=== PATIENT | female | born 1990 | race Caucasian/White ===

== ENCOUNTER 2016-03-21 | Outpatient (CLI) | payer MEDICAID | END 2016-03-21 09:48 | disposition EMS.NT | DX: E16.2 Hypoglycemia, unspecified (principal) ==

== ENCOUNTER 2016-08-20 20:26 | Outpatient (CLI) | payer MEDICAID | END 2016-08-20 20:27 | disposition critical access hospital (66) | LOC: EMS 20:26 | PROVIDERS: ATTEND Surgery | DX: E11.641 Type 2 diabetes mellitus with hypoglycemia with coma (principal) | CPT/HCPCS: A0425; A0427 ==

== ENCOUNTER 2016-08-20 20:50 | Emergency (ER) | payer MEDICAID ==
[2016-08-20] MEDS ORDERED: SODIUM CHLORIDE 0.9% 1,000 ML IV ONE (21:03)
[2016-08-20 21:55] LABS: BASOPHILS # (AUTO) 0.1 10^3/uL (0.0-0.1); BASOPHILS % (AUTO) 0.9 %; EOSINOPHILS % (AUTO) 0.2 %; HCT - HEMATOCRIT 41.9 % (37.0-47.0); HGB - HEMOGLOBIN 13.9 g/dL (12.0-16.0); LYMPHOCYTES # (AUTO) 1.4 10^3/uL (1.5-3.5); LYMPHOCYTES % (AUTO) 17.1 %; MEAN CORPUSCULAR HEMOGLOBIN 28.2 pg (27.0-31.0); MEAN CORPUSCULAR HGB CONC 33.2 g/dL (32.0-36.0); MEAN CORPUSCULAR VOLUME 84.9 fL (81.0-99.0); MEAN PLATELET VOLUME 7.5 fL (7.9-10.8); MONOCYTES # (AUTO) 0.5 10^3/uL (0.0-1.0); MONOCYTES % (AUTO) 6.7 %; NEUTROPHILS % (AUTO) 75.1 %; NUCLEATED RED BLOOD CELLS AUTO 0.1 /100WBC; RED BLOOD COUNT 4.94 10^6/uL (4.20-5.40); RED CELL DISTRIBUTION WIDTH 13.1 % (12.0-15.0)
[2016-08-20 22:08] LABS: BILIRUBIN,TOTAL 0.5 mg/dL (0.2-1.0); CALCIUM 9.5 mg/dL (8.5-10.3); CREATININE 0.8 mg/dL (0.4-1.0); POTASSIUM 4.3 mmol/L (3.5-5.0); TOTAL PROTEIN 8.6 g/dL (6.7-8.2)
--- NOTE | 2016-08-20 23:20 | ED Physician Documentation ---
History of Present Illness - Stated complaint Stated Complaint: HYPOGLYCEMIA - Chief complaint Chief Complaint: Neuro - History obtained from History obtained from: Patient, Family, EMS - History of Present Illness Timing: Today Pain level max: 0 Pain level now: 0 Improved by: D50 Worsened by: Insulin - Additonal information Additional information: Patient is a 25-year-old female who was house sitting today when she became unconscious and was found on the floor. Blood sugar was 16 when EMS arrived. She was given D50 and is now normal. She does wear an insulin pump. She is a type I diabetic. Review of Systems Constitutional: denies: Fever, Chills Nose: denies: Rhinorrhea / runny nose, Congestion Throat: denies: Sore throat Cardiac: denies: Chest pain / pressure Respiratory: denies: Cough GI: denies: Abdominal Pain, Nausea, Vomiting, Diarrhea : denies: Dysuria, Frequency, Hesitancy, Now EGA Skin: denies: Rash Musculoskeletal: denies: Neck pain, Back pain Neurologic: denies: Generalized weakness, Headache Psychiatric: reports: Depressed (Has a history of depression, but is currently not depressed). denies: Suicidal, Homicidal PD PAST MEDICAL HISTORY - Past Medical History Past Medical History: Yes Cardiovascular: None Respiratory: None Neuro: None Endocrine/Autoimmune: Type 1 diabetes GI: None MUSTANGER: None : None HEENT: None Psych: Depression Musculoskeletal: None Derm: None - Past Surgical History Past Surgical History: No - Present Medications Home Medications: Ambulatory Orders Medication Instructions Recorded Confirmed Cephalexin [Keflex] 500 mg PO Q6H #28 capsule 07/28/12 HYDROcod/ACETAM 5/325 [Arion 5/325] 1 - 2 ea PO Q6H PRN #15 tablet 07/28/12 - Allergies Allergies/Adverse Reactions: Allergies Allergy/AdvReac Type Severity Reaction Status Date / Time No Known Drug Allergies Allergy Verified 07/28/12 19:05 - Social History Does the pt smoke?: No Smoking Status: Never smoker Does the pt drink ETOH?: No Does the pt have substance abuse?: No - Immunizations Immunizations are current?: Yes - POLST Patient has POLST: No PD ED PE NORMAL - Vitals Vital signs reviewed: Yes - General General: Alert and oriented X 3, No acute distress, Well developed/nourished - HEENT HEENT: PERRL, Moist mucous membranes - Neck Neck: Supple, no meningeal sign - Cardiac Cardiac: RRR, Strong equal pulses - Respiratory Respiratory: No respiratory distress, Clear bilaterally - Abdomen Abdomen: Soft, Non tender, Non distended - Derm Derm: Warm and dry, No rash - Extremities Extremities: No edema, No calf tenderness / cord - Neuro Neuro: Alert and oriented X 3 - Psych Psych: Normal mood, Normal affect Results - Vitals Vitals: Vital Signs - 24 hr 08/20/16 08/20/16 08/20/16 20:59 21:07 21:52 Temperature 36.0 C L Heart Rate 84 82 87 Respiratory 16 16 17 Rate Blood Pressure 148/110 H 119/71 132/80 H O2 Saturation 100 98 97 08/20/16 08/20/16 08/20/16 22:18 22:42 23:07 Temperature Heart Rate 90 90 86 Respiratory 16 17 16 Rate Blood Pressure 137/80 H 117/82 H 135/84 H O2 Saturation 100 99 99 08/20/16 23:25 Temperature Heart Rate 90 Respiratory 19 Rate Blood Pressure 140/79 H O2 Saturation 97 Oxygen O2 Source Room air - Labs Labs: Laboratory Tests 08/20/16 08/20/16 21:50 21:50 WBC 8.0 RBC 4.94 Hgb 13.9 Hct 41.9 MCV 84.9 MCH 28.2 MCHC 33.2 RDW 13.1 Plt Count 305 MPV 7.5 L Neut # 6.0 Lymph # 1.4 L [facility] # 0.5 Eos # 0.0 Baso # 0.1 Absolute Nucleated RBC 0.01 Nucleated RBCs 0.1 Sodium 141 Potassium 4.3 Chloride 104 Carbon Dioxide 28 Anion Gap 9.0 BUN 13 Creatinine 0.8 Estimated GFR (MDRD) 88 L Glucose 104 H Calcium 9.5 Total Bilirubin 0.5 AST 24 ALT 27 Alkaline Phosphatase 75 Total Protein 8.6 H Albumin 4.3 Globulin 4.3 H Albumin/Globulin Ratio 1.0 Lipase 18 L PD MEDICAL DECISION MAKING - ED course Complexity details: reviewed results, re-evaluated patient, considered differential, d/w patient, d/w family ED course: Patient is a 25-year-old female who presents to the emergency department after a hypoglycemic event tonight. She is insulin-dependent. Does wear an insulin pump. She ate and drank in the emergency department and was observed for several hours with no recurrent hypoglycemia. We will have her follow-up with her doctor to readjust her insulin pump as needed. Patient and family counseled regarding signs and symptoms for which I believe and urgent re- evaluation would be necessary. Patient with good understanding of and agreement to plan and is comfortable going home at this time This document was made in part using voice recognition software. While efforts are made to proofread this document, sound alike and grammatical errors may occur. Family will be with her zanight Departure - Departure Disposition: 01 Home, Self Care Clinical Impression: Hypoglycemia Condition: Good Instructions: ED Diabetes Hypoglycemia Insulin React Follow-Up: Devorah Gunn MD [Primary Care Provider] - Within 1 week Comments: Return if you worsen. Keep track of your blood sugars at home. Discharge Date/Time: 08/20/16 23:25
[2016-08-20 23:35] VITALS: BP 140/79
== END 2016-08-20 23:25 | disposition home or self-care (01) ==
LOC: ED 20:50
DX: E10.649 Type 1 diabetes mellitus with hypoglycemia without coma (principal); Z79.4 Long term (current) use of insulin
CPT/HCPCS: 36415; 80053; 83690; 85025; 99284; 99285

== ENCOUNTER 2016-12-22 16:58 | Outpatient (CLI) | payer MEDICAID | END 2016-12-22 16:59 | disposition critical access hospital (66) | LOC: EMS 16:58 | PROVIDERS: ATTEND Surgery | DX: M25.552 Pain in left hip (principal); V80.010A Animal-rider injured by fall from or being thrown from horse in noncollision accident, initial encounter; Y93.52 Activity, horseback riding; Y99.8 Other external cause status | CPT/HCPCS: A0425; A0427 ==

== ENCOUNTER 2016-12-22 17:36 | Emergency (ER) | payer MEDICAID ==
--- NOTE | 2016-12-22 19:01 | ED Physician Documentation ---
PD HPI Fall - Stated complaint Stated Complaint: BUCKED FROM HORSE - Chief complaint Chief Complaint: Trauma Ch/Bk - History obtained from History obtained from: Patient, EMS - History of Present Illness Mechanism of injury: Other (fell from horse, bucked off.) Fall distance: 5 to 10ft Timing - onset: Today Injury(ies) location: Back. No: Head, Chest, Abdomen Associated symptoms: No: LOC, AMS, Weakness, Paresthesias, Nausea / vomiting Symptoms improve with: Rest Worsens with: Movement Similar symptoms before: Has not had sx before Recently seen: Not recently seen Review of Systems Cardiac: denies: Chest pain / pressure GI: denies: Abdominal Pain Skin: denies: Abrasion (s), Laceration (s) Neurologic: denies: Generalized weakness, Focal weakness, Numbness, Altered mental status, Headache, Head injury PD PAST MEDICAL HISTORY - Past Medical History Cardiovascular: None Respiratory: None Neuro: None Endocrine/Autoimmune: Type 1 diabetes GI: None 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 : None HEENT: None Psych: Depression Musculoskeletal: None Derm: None - Past Surgical History Past Surgical History: No - Present Medications Home Medications: Ambulatory Orders Medication Instructions Recorded Confirmed Escitalopram Oxalate [Lexapro] 2 tab PO DAILY 12/22/16 12/22/16 Insulin Aspart [NovoLOG] See Protocol SQ TITR 12/22/16 12/22/16 Levonorgestrel-Ethin Estradiol 1 tab PO DAILY 12/22/16 12/22/16 [Marlissa-28 Tablet] Liothyronine [Cytomel] 1 tab PO DAILY 12/22/16 12/22/16 Methocarbamol [Robaxin] 500 mg PO Q6H PRN #25 tablet 12/22/16 Oxycodone HCl/Acetaminophen 1 each PO Q6H PRN #20 tablet 12/22/16 [Percocet 5-325 mg Tablet] buPROPion [Wellbutrin Xl] 1 tab PO DAILY 12/22/16 12/22/16 - Allergies Allergies/Adverse Reactions: Allergies Allergy/AdvReac Type Severity Reaction Status Date / Time No Known Drug Allergies Allergy Verified 12/22/16 17:46 - Social History Does the pt smoke?: No Smoking Status: Never smoker Does the pt drink ETOH?: No Does the pt have substance abuse?: No - Immunizations Immunizations are current?: Yes - POLST Patient has POLST: No PD ED PE NORMAL - Vitals Vital signs reviewed: Yes - General General: Alert and oriented X 3, No acute distress, Well developed/nourished - HEENT HEENT: Atraumatic, Pharynx benign, Dentition benign - Neck Neck: Supple, no meningeal sign, No adenopathy - Cardiac Cardiac: RRR, No murmur - Respiratory Respiratory: No respiratory distress, Clear bilaterally - Abdomen Abdomen: Soft, Non tender - Back Back: Other (upper lumbar area tender to palpation, mostly left muscles. No deformity.) - Derm Derm: Normal color, Warm and dry - Extremities Extremities: No tenderness to palpate, Normal ROM s pain - Neuro Neuro: Alert and oriented X 3, No motor deficit, No sensory deficit, Normal speech Results - Vitals Vitals: Oxygen O2 Source Room air - Labs Labs: Laboratory Tests 12/22/16 18:06 POC Whole Bld Glucose 173 H - Rads (name of study) Lumbar CT Radiology: Prelim report reviewed (transverse process fracture, nondisplaced. ) PD MEDICAL DECISION MAKING - ED course Complexity details: reviewed results (L2 transverse process fracture), considered differential, d/w patient Departure - Departure Disposition: 01 Home, Self Care Clinical Impression: Fall from horse Qualifiers: Encounter type: initial encounter Qualified Code(s): V80.010A - Animal-rider injured by fall from or being thrown from horse in noncollision accident, initial encounter Lumbar transverse process fracture Qualifiers: Encounter type: initial encounter Fracture type: closed Qualified Code(s): S32.009A - Unspecified fracture of unspecified lumbar vertebra, initial encounter for closed fracture Back contusion Qualifiers: Encounter type: initial encounter Laterality: left Qualified Code(s): S20.222A - Contusion of left back wall of thorax, initial encounter Condition: Stable Record reviewed to determine appropriate education?: Yes Instructions: ED Contusion Back, ED Fx Transverse Spinous Process Follow-Up: Devorah Gunn MD [Primary Care Provider] - Prescriptions: Methocarbamol [Robaxin] 500 mg PO Q6H PRN #25 tablet PRN Reason: Spasms Oxycodone HCl/Acetaminophen [Percocet 5-325 mg Tablet] 1 each PO Q6H PRN #20 tablet PRN Reason: Pain Comments: .Ibuprofen or naproxen twice daily for the next 7-10 days use heat for the muscles and gentle stretching to reduce spasming. Light activity is okay and good for the back muscles. They will be sore however with use and avoid heavy lifting twisting or bending for 1-2 weeks initially. Use methocarbamol if needed for muscle spasms and oxycodone or Tylenol if needed for pain. The pain should decrease quite a bit over the first several days as the swelling and contusion improve. The fracture part will hurt mostly for the first week and 1/ 2-2 weeks. Will take about a month for her to fully heal up. Progress activity and use of the back as able during that time. Discharge Date/Time: 12/22/16 21:15
[2016-12-22] MEDS: KETOROLAC 60 MG/2 ML VIAL IVP STA ×2 (19:57→20:26)
--- NOTE | 2016-12-22 19:57 | CT Preliminary Report ---
Exam: CT PELVIS W/O IMPRESSION: 1. No acute fracture. 2. 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 3. Mild pubic symphysis arthritic changes. [facility] SITE ID: [id number]
--- NOTE | 2016-12-22 19:58 | CT Preliminary Report ---
Exam: CT LUMBAR SPINE W/O IMPRESSION: 1. Left L2 transverse process fracture. 2. Otherwise unremarkable. [facility] SITE ID: [id number]
[2016-12-22] MEDS ORDERED: KETOROLAC 30 MG/ML VIAL ONE ×2 (20:00→20:18)
[2016-12-22] MEDS ORDERED: SODIUM CHLORIDE FLUSH 0.9% 10 ML SYRINGE IVP ONE ×2 (20:00→20:19)
--- NOTE | 2016-12-22 20:00 | CT Report ---
EXAM: CT BONY PELVIS WITHOUT CONTRAST EXAM DATE: 12/22/2016 07:43 PM. CLINICAL HISTORY: Left sided pelvic pain after fall from horse. COMPARISON: None. TECHNIQUE: Thin-section axial images were acquired of the pelvis without contrast. Post-processing: C oronal and sagittal reformats. Other: None. In accordance with CT protocol optimization, one or more of the following dose reduction techniques w ere utilized for this exam: automated exposure control, adjustment of mA and/or KV based on patient s ize, or use of iterative reconstructive technique. FINDINGS: Bones: No fracture or bone lesion. Sacroiliac Joints: No widening, erosions, or sclerosis. Symphysis Pubis: Mild arthritic changes. Hips: There is diminished bilateral femoral headneck offset. No dislocation or joint effusions. No s ignificant joint space narrowing. Musculature: Normal. No fatty atrophy. Pelvic Cavity: The visualized bowel, bladder, and reproductive organs are unremarkable on this noncon trast exam. Other: No lymphadenopathy. No free air or free fluid. The other visualized soft tissues are unremarka ble. IMPRESSION: 1. No acute fracture. 2. 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 3. Mild pubic symphysis arthritic changes. [facility] Referring Provider Line: [phone] SITE ID: [id number]
--- NOTE | 2016-12-22 20:01 | CT Report ---
EXAM: CT LUMBAR SPINE WITHOUT CONTRAST EXAM DATE: 12/22/2016 07:43 PM. CLINICAL HISTORY: Fall from horse. COMPARISONS: None. TECHNIQUE: Thin-section axial images were acquired of the lumbar spine from T12 to S1 without contras t. Post-processing: Coronal and sagittal reformats. Other: None. In accordance with CT protocol optimization, one or more of the following dose reduction techniques w ere utilized for this exam: automated exposure control, adjustment of mA and/or KV based on patient s ize, or use of iterative reconstructive technique. FINDINGS: Alignment: Normal. No scoliosis or spondylolisthesis. Bones: Five [id number] lumbar vertebral bodies are present. There is a fracture involving the ti p of the left L2 transverse process. No other fracture seen. Disk Levels/Facets: T12-L1: Unremarkable. L1-L2: Unremarkable. L2-L3: Unremarkable. L3-L4: Unremarkable. L4-L5: Unremarkable. L5-S1: Unremarkable. Musculature: Normal. No fatty atrophy. Other: The visualized pelvic cavity is unremarkable. IMPRESSION: 1. Left L2 transverse process fracture. 2. Otherwise unremarkable. [facility] Referring Provider Line: [phone] SITE ID: [id number]
[2016-12-22] MEDS ORDERED: KETOROLAC 30 MG/ML VIAL IM STA (20:26)
[2016-12-22] MEDS ORDERED: oxyCODONE/ACET 5/325 Prepack 4 PO STA (20:43)
[2016-12-22] MEDS ORDERED: oxyCOD/ACETAMIN 5 MG/325 MG TABLET PO STA (20:43)
[2016-12-22] MEDS ORDERED: diazePAM 5 MG TABLET PO STA (20:43)
[2016-12-22] MEDS ORDERED: oxyCOD/ACETAMIN 5 MG/325 MG TABLET PO ONE (20:53)
[2016-12-22] MEDS ORDERED: diazePAM 5 MG TABLET PO ONE (20:54)
[2016-12-22] MEDS ORDERED: oxyCODONE/ACET 5/325 Prepack 4 PO ONE (20:54)
[2016-12-22 21:28] VITALS: BP 133/74
== END 2016-12-22 21:15 | disposition home or self-care (01) ==
LOC: EDUNIT# → ED 17:36
DX: S32.029A Unspecified fracture of second lumbar vertebra, initial encounter for closed fracture (principal); S20.222A Contusion of left back wall of thorax, initial encounter; V80.010A Animal-rider injured by fall from or being thrown from horse in noncollision accident, initial encounter; E10.9 Type 1 diabetes mellitus without complications; Z79.4 Long term (current) use of insulin
CPT/HCPCS: 72131; 72192; 96372; 99284; A9270

== ENCOUNTER 2018-12-01 13:53 | Outpatient (CLI) | payer MEDICAID | END 2018-12-01 13:54 | disposition critical access hospital (66) | LOC: EMS 13:53 | PROVIDERS: ATTEND Surgery | DX: R11.2 Nausea with vomiting, unspecified (principal); R73.09 Other abnormal glucose | CPT/HCPCS: A0425; A0429; A0999 ==

== ENCOUNTER 2018-12-01 14:34 | Inpatient (IN) | payer MEDICAID ==
[2018-12-01] MEDS ORDERED: ONDANSETRON 4 MG/2 ML VIAL IVP STA ×2 (15:15→17:40)
[2018-12-01] MEDS ORDERED: SODIUM CHLORIDE 0.9% 1,000 ML IV ONE ×2 (15:15→16:21)
--- NOTE | 2018-12-01 15:32 | ED Physician Documentation ---
PD HPI NVD - Stated complaint Stated Complaint: N/V - Chief complaint Chief Complaint: Abd Pain - History obtained from History obtained from: Patient - History of Present Illness Timing - onset: Today Timing - duration: Hours (12) Timing - details: Abrupt onset Associated symptoms: Abdominal pain, Dizzy, Near syncope / syncope. No: Fever, Hematemesis, Dysuria, Hematuria Contributing factors: No: Sick contact, Bad food (This is a 28-year-old presents with complaints that she is a diabetic and she thinks her insulin pump may not be working because it has been notifying her that the "flow it "is blocked.) Recently seen: Not recently seen - Additonal information Additional information: This is a 28-year-old diabetic who presents with complaints that she thinks her insulin pump may not be working she took it off the automatic mode last week because she was having what hypoglycemia and now she is getting notifications today that the "flow" is blocked. She began vomiting about 4 AM and has not been able to keep anything down. Her mom checked her blood sugar at home but she does not know what it was. She is complaining of some mild abdominal pain but mostly back pain. Denies any dysuria and denies . She was not ill before this started. She has not eaten anything in the past 24 hours and does not remember eating anything that she thinks would have made her sick. She denies any recent illness, no fever, no sore throat or coughing. She has felt dizzy significantly. Review of Systems Constitutional: denies: Fever Eyes: denies: Loss of vision Ears: denies: Ear pain Nose: denies: Congestion Throat: denies: Sore throat Cardiac: denies: Palpitations Respiratory: denies: Cough GI: reports: Abdominal Pain, Nausea, Vomiting : denies: Dysuria, Now EGA Skin: denies: Rash Musculoskeletal: reports: Back pain Neurologic: denies: Syncope Endocrine: reports: Other (Patient is diabetic.). denies: Polydypsia, Polyuria PD PAST MEDICAL HISTORY - Past Medical History Cardiovascular: None Respiratory: None Endocrine/Autoimmune: Type 1 diabetes GI: None HEAD BONE GRINDER: None : None HEENT: None Psych: Depression Musculoskeletal: None Derm: None - Past Surgical History Past Surgical History: No - Present Medications Home Medications: Ambulatory Orders Medication Instructions Recorded Confirmed Escitalopram Oxalate [Lexapro] 2 tab PO DAILY 12/22/16 12/22/16 Insulin Aspart [NovoLOG] See Protocol SQ TITR 12/22/16 12/22/16 Levonorgestrel-Ethin Estradiol 1 tab PO DAILY 12/22/16 12/22/16 [Marlissa-28 Tablet] Methocarbamol [Robaxin] 500 mg PO Q6H PRN #25 tablet 12/22/16 Oxycodone HCl/Acetaminophen 1 each PO Q6H PRN #20 tablet 12/22/16 [Percocet 5-325 mg Tablet] RX: Liothyronine [Cytomel] 1 tab PO DAILY 12/22/16 12/22/16 buPROPion [Wellbutrin Xl] 1 tab PO DAILY 12/22/16 12/22/16 - Allergies Allergies/Adverse Reactions: Allergies Allergy/AdvReac Type Severity Reaction Status Date / Time No Known Drug Allergies Allergy Verified 12/01/18 14:47 - Social History Does the pt smoke?: No Smoking Status: Never smoker Does the pt drink ETOH?: No Does the pt have substance abuse?: No - Immunizations Immunizations are current?: Yes - POLST Patient has POLST: No PD ED PE NORMAL - Vitals Vital signs reviewed: Yes - General General: Well developed/nourished, Other (She is somnolent, slow to answer questions.) - HEENT HEENT: Other (Mucous membrane's are very dry. She smells of ketones.) - Neck Neck: No adenopathy, Thyroid normal - Cardiac Cardiac: Other (Patient is tachycardic. No murmur.) - Respiratory Respiratory: No respiratory distress, Clear bilaterally - Abdomen Abdomen: Normal bowel sounds, Soft, Non tender, Non distended - Back Back: No CVA TTP - Derm Derm: Normal color, Warm and dry - Extremities Extremities: No edema - Neuro Neuro: Alert and oriented X 3, No motor deficit, No sensory deficit, Normal speech Results - Vitals Vitals: Vital Signs - 24 hr 12/01/18 12/01/18 14:43 17:34 Temperature 97.9 C H Heart Rate 109 H 112 H Respiratory 18 20 Rate Blood Pressure 112/57 L 116/62 O2 Saturation 100 100 Oxygen O2 Source Room air - Labs Labs: Laboratory Tests 12/01/18 12/01/18 12/01/18 15:06 15:06 16:50 WBC 10.9 H RBC 4.85 Hgb 13.2 Hct 43.2 MCV 89.1 MCH 27.2 MCHC 30.6 L RDW 13.2 Plt Count 354 MPV 9.8 Neut # (Auto) 9.3 H Lymph # (Auto) 0.8 L [facility] # (Auto) 0.6 Eos # (Auto) 0.0 Baso # (Auto) 0.0 Absolute Nucleated RBC 0.00 Nucleated RBC % 0.0 VBG pH VBG pCO2 VBG pO2 VBG HCO3 VBG Total CO2 VBG O2 Saturation VBG Base Excess Sodium Potassium Chloride Carbon Dioxide Anion Gap BUN Creatinine Estimated GFR (MDRD) Glucose Glycated Hemoglobin Estim Average Glucose Calcium Total Bilirubin AST ALT Alkaline Phosphatase Total Protein Albumin Globulin Albumin/Globulin Ratio Lipase Urine Color YELLOW Urine Clarity CLEAR Urine pH 6.0 Ur Specific [place] 1.025 1.025 Urine Protein NEGATIVE Urine Glucose (UA) 500 H Urine Ketones >=80 H Urine Occult Blood TRACE-INTA Urine Nitrite NEGATIVE Urine Bilirubin NEGATIVE Urine Urobilinogen 0.2 (NORMAL) Ur Leukocyte Esterase NEGATIVE Ur Microscopic Review NOT INDICATED Urine Culture Comments NOT INDICATED Urine HCG, Qual NEGATIVE Serum Ketones 12/01/18 12/01/18 12/01/18 16:50 16:50 16:50 WBC RBC Hgb Hct MCV MCH MCHC RDW Plt Count MPV Neut # (Auto) Lymph # (Auto) [place] # (Auto) Eos # (Auto) Baso # (Auto) Absolute Nucleated RBC Nucleated RBC % VBG pH 7.254 L VBG pCO2 31.3 L VBG pO2 55.9 H VBG HCO3 13.5 L VBG Total CO2 14.5 L VBG O2 Saturation 86.5 H VBG Base Excess -12.3 L Sodium 137 Potassium 6.0 H* Chloride 104 Carbon Dioxide 15 L Anion Gap 18.0 H BUN 18 Creatinine 1.1 H Estimated GFR (MDRD) 60 L Glucose 417 H Glycated Hemoglobin 7.9 H Estim Average Glucose 180 H Calcium 9.5 Total Bilirubin 1.4 H AST 17 ALT 16 Alkaline Phosphatase 94 Total Protein 8.1 Albumin 4.2 Globulin 3.9 Albumin/Globulin Ratio 1.1 Lipase 16 L Urine Color Urine Clarity Urine pH Ur Specific [place] Urine Protein Urine Glucose (UA) Urine Ketones Urine Occult Blood Urine Nitrite Urine Bilirubin Urine Urobilinogen Ur Leukocyte Esterase Ur Microscopic Review Urine Culture Comments Urine HCG, Qual Serum Ketones MODERATE H PD MEDICAL DECISION MAKING - ED course Complexity details: reviewed results, re-evaluated patient, d/w patient, d/w family ED course: An IV was established and the patient was given 2 L of saline. There was a delay in getting her potassium and I was cautious about starting IV insulin until that was returned. It was 6.0. Her EKG did not show any concerning changes. She still complaining of feeling nauseous despite Zofran so she is given an additional 4 mg and also given Dilaudid for headache. Her venous pH was 7.25, positive ketones, blood glucose 417. Case was discussed with the hospitalist and they have agreed to accept the patient for admission to the ICU. - Critical Care Time(min): 30 Time Includes: Direct patient care, Review records, Reassess patient, Document care, See progress note Data interpretation: Labs Departure - Departure Disposition: 66 [facility] DC/Xfer Clinical Impression: DKA, type 1 Qualifiers: Diabetes mellitus complication detail: without coma Qualified Code(s): E10.10 - Type 1 diabetes mellitus with ketoacidosis without coma Discharge Date/Time: 12/01/18 19:00
[2018-12-01 15:42] LABS: BILIRUBIN,URINE NEGATIVE (NEGATIVE); GLUCOSE, URINE (UA) 500 mg/dL (NEGATIVE); KETONES,URINE (UA) >=80 mg/dL (NEGATIVE); LEUKOCYTE ESTERASE, URINE NEGATIVE (NEGATIVE); NITRITE,URINE NEGATIVE (NEGATIVE); OCCULT BLOOD,URINE TRACE-INTA (NEGATIVE); PROTEIN,URINE NEGATIVE (NEGATIVE); UROBILINOGEN,URINE 0.2 (NORMAL) E.U./dL (NORMAL)
[2018-12-01 15:46] LABS: CLARITY,URINE CLEAR (CLEAR); HCG UR QUAL NEGATIVE
[2018-12-01 17:05] LABS: VBG BASE EXCESS -12.3 mmol/L (-2 - +2); VBG PCO2 31.3 mmHg (41-51); VBG PH 7.254 (7.31-7.41); VBG PO2 55.9 mmHg (25-47); VBG TOTAL CO2 14.5 mmol/L (24-29)
[2018-12-01 17:07] LABS: BASOPHILS % (AUTO) 0.2 %; HGB - HEMOGLOBIN 13.2 g/dL (12.0-16.0); LYMPHOCYTES # (AUTO) 0.8 10^3/uL (1.5-3.5); LYMPHOCYTES % (AUTO) 7.6 %; MEAN CORPUSCULAR HEMOGLOBIN 27.2 pg (27.0-31.0); MEAN CORPUSCULAR HGB CONC 30.6 g/dL (32.0-36.0); MEAN CORPUSCULAR VOLUME 89.1 fL (81.0-99.0); MEAN PLATELET VOLUME 9.8 fL (7.9-10.8); MONOCYTES # (AUTO) 0.6 10^3/uL (0.0-1.0); MONOCYTES % (AUTO) 5.9 %; NEUTROPHILS # (AUTO) 9.3 10^3/uL (1.5-6.6); NEUTROPHILS % (AUTO) 85.8 %; PLT - PLATELET COUNT 354 10^3/uL (130-450); RED BLOOD COUNT 4.85 10^6/uL (4.20-5.40); RED CELL DISTRIBUTION WIDTH 13.2 % (12.0-15.0); WHITE BLOOD COUNT 10.9 x10^3/uL (4.8-10.8)
[2018-12-01 17:14] LABS: KETONES, SERUM (ACETEST) MODERATE (NEGATIVE)
[2018-12-01 17:24] LABS: ALBUMIN 4.2 g/dL (3.2-5.5); ALBUMIN/GLOBULIN RATIO 1.1 (1.0-2.2); ALKALINE PHOSPHATASE 94 IU/L (42-121); ALT ALANINE AMINOTRANSFERASE 16 IU/L (10-60); AST ASPARTATE AMINOTRANSFERASE 17 IU/L (10-42); BILIRUBIN,TOTAL 1.4 mg/dL (0.2-1.0); BUN - BLOOD UREA NITROGEN 18 mg/dL (6-20); CALCIUM 9.5 mg/dL (8.5-10.3); CARBON DIOXIDE - CO2 15 mmol/L (21-32); CHLORIDE 104 mmol/L (101-111); CREATININE 1.1 mg/dL (0.4-1.0); GFR - MDRD 60 (>89); GLUCOSE 417 mg/dL (70-100); LIPASE 16 U/L (22-51); SODIUM 137 mmol/L (135-145); TOTAL PROTEIN 8.1 g/dL (6.7-8.2)
[2018-12-01] MEDS ORDERED: ONDANSETRON ODT 4 MG TABLET TL PRN (17:39)
[2018-12-01] MEDS ORDERED: LACTATED RINGERS 1,000 ML IV STA (17:39)
[2018-12-01] MEDS ORDERED: PROCHLORPERAZINE 10 MG/2 ML VIAL IVP PRN (17:39)
[2018-12-01] MEDS ORDERED: SODIUM CHLORIDE FLUSH 0.9% 10 ML SYRINGE IVP PRN (17:39)
[2018-12-01] MEDS ORDERED: ONDANSETRON 4 MG/2 ML VIAL IVP PRN (17:39)
[2018-12-01] MEDS ORDERED: ACETAMINOPHEN 325 MG TABLET PO PRN (17:39)
[2018-12-01] MEDS ORDERED: HYDROmorphone 1 MG/ML CARPUJECT IVP STA (17:40)
--- NOTE | 2018-12-01 17:48 | HISTORY & PHYSICAL EXAMINATION ---
Chief Complaint - Chief Complaint Chief Complaint: nausea/vomitting, abd pain in Type 1 diabetic <Delfina Kellogg - Last Filed: 12/01/18 18:47> History of Present Illness - Admitted From Admitted From:: Home/ER - History Obtained From Records Reviewed: [facility] History obtained from: Dr. Seymour, Patient Exam Limitations: none <Delfina Kellogg - Last Filed: 12/01/18 18:47> - History of Present Illness HPI Comment/Other: She is a 28-year-old female who has had type 1 diabetes mellitus since childhood. She has had numerous encounters with healthcare system due to hypoglycemia. But she is never had to be brought into the hospital because EMS would usually be able to treat her at the scene and she would recover from hypoglycemia. She took her insulin pump off automatic mode last week because she was having too much hypoglycemia. Today she was getting notifications that the "flow" was blocked. This morning she began vomiting at 4 AM and has not been able to keep anything down. She has mild mid abdominal pain. Low back pain. She denies fever, chills. She denies any URI symptoms. She denies chest pain, cough, shortness of breath. She denies being . She denies urgency, frequency, dysuria. No one else in the family is sick. In the emergency room she was seen by Dr. Seymour. Temperature is 97.9, heart rate is 109, blood pressure is 112/57, respiratory rate 18 and 100% on room air. Her potassium was 6. Creatinine is acutely elevated to 1.1. Random glucose was 417. Total bili 1.4. Lipase 16. Venous blood gas shows a pH of 7.254. P CO2 31.3. PO2 55.9. Bicarb 13.5. Base excess -12.3. White cell count is elevated at 10.9 and the rest of her CBC is normal. Urinalysis has glucosuria and ketonuria but no infection. Urine test is negative. Ketones are positive. She is now going to be placed in the ICU. She has 2 large IVs, one in each arm. She will be started on insulin drip and hydrated with nausea control. (Delfina Kellogg Mahesh) History - Past Medical History Cardiovascular: reports: None Respiratory: reports: None Endocrine/Autoimmune: reports: Type 1 diabetes GI: reports: None REGISTERED NURSE RENAL: reports: None : reports: None HEENT: reports: None Psych: reports: Depression Musculoskeletal: reports: None Derm: reports: None MRSA Hx?: No - POLST Patient has POLST: No <Delfina Kellogg - Last Filed: 12/01/18 18:47> - Family & Social History Family History Comment/Other: Her paternal grandfather had type 2 diabetes. Both of her parents have hypertension. Living arrangement: At home Living Situation: With family Social History Notes: She lives on [address] with her mother. She is not currently employed. She does not smoke. Occasionalyl drinks alcohol. Denies drug use. - Substance History Use: Uses substance without health or social issues: NONE <TimbrunoLuis - Last Filed: 12/01/18 20:26> Meds/Allgy <Delfina Kellogg - Last Filed: 12/01/18 18:47> <Luis Bishop - Last Filed: 12/01/18 20:26> - Home Medications Home Medications: Ambulatory Orders Medication Instructions Recorded Confirmed Escitalopram Oxalate [Lexapro] 2 tab PO DAILY 12/22/16 12/22/16 Insulin Aspart [NovoLOG] See Protocol SQ TITR 12/22/16 12/22/16 Levonorgestrel-Ethin Estradiol 1 tab PO DAILY 12/22/16 12/22/16 [Marlissa-28 Tablet] Liothyronine [Cytomel] 1 tab PO DAILY 12/22/16 12/22/16 Methocarbamol [Robaxin] 500 mg PO Q6H PRN #25 tablet 12/22/16 Oxycodone HCl/Acetaminophen 1 each PO Q6H PRN #20 tablet 12/22/16 [Percocet 5-325 mg Tablet] buPROPion [Wellbutrin Xl] 1 tab PO DAILY 12/22/16 12/22/16 - Allergies Allergies/Adverse Reactions: Allergies Allergy/AdvReac Type Severity Reaction Status Date / Time No Known Drug Allergies Allergy Verified 12/01/18 14:47 Review of Systems - Constitutional Constitutional: reports: Fatigue, Chills, Weakness, Poor appetite. denies: Fever - Cardiovascular Cariovascular: denies: Chest pain, Exertional dyspnea, Decr. exercise tolerance - Respiratory Respiratory: reports: SOB at rest. denies: Cough, SOB with exertion - Gastrointestinal Gastrointestinal: reports: Abdominal pain, Nausea, Vomiting. denies: Constipation, Diarrhea - Genitourinary Genitourinary: reports: Frequency. denies: Dysuria, Urgency - Integumentary Integumentary: denies: Rash - Neurological Neurological: reports: General weakness. denies: Focal weakness - Endocrine Endocrine: reports: Polyuria, Polydypsia - All Other Systems All Other Systems: reports: Reviewed and negative <TimbrunoLuis - Last Filed: 12/01/18 20:26> <TimLuis riley - Last Filed: 12/01/18 20:26> Prior Level of Functionality: Independent with ADL's. (Luis Bishop) Exam - Vital Signs Reviewed Vital Signs: Yes - Physical Exam General Appearance: positive: Alert, Mild distress Eyes Bilateral: positive: Normal inspection, Conjunctivae nml ENT: positive: Dry mucous membranes Neck: positive: Nml inspection Respiratory: positive: No respiratory distress. negative: Wheezes, Rales, Rhonchi Cardiovascular: positive: No murmur, Tachycardia. negative: Bradycardia, Systolic murmur, Diastolic murmur Abdomen: positive: Non-tender, Nml bowel sounds, No distention. negative: Tenderness, Guarding, Rebound Skin: positive: Color nml, No rash, Warm Extremities: positive: Non-tender, Full ROM, No pedal edema Neurologic/Psychiatric: positive: Oriented x3, Other (No focal motor deficits). negative: Disoriented to person, Disoriented to place, Disoriented to time <TimbrunoLuis - Last Filed: 12/01/18 20:26> - Vital Signs Vital Signs: Vital Signs x48h Temp Pulse Pulse Resp BP BP Pulse Ox 12/01/18 20:00 118 H 21 113/50 L 99 12/01/18 19:05 36.6 C 116 H 16 129/58 L 99 12/01/18 18:30 126 H 18 116/53 L 100 12/01/18 17:34 112 H 20 116/62 100 12/01/18 14:43 97.9 C H 109 H 18 112/57 L 100 Conclusion/Plan - Problem List (1) DKA, type 1 Conclusion/Plan: Due to pump malfunction. Most likely not getting her insulin. She is not felt to have any infection, cardiac problem, noncompliance, issue. She has hyperkalemia, anion gap acidosis Plan: Inpatient admission ICU status for DKA protocol including insulin drip Aggressive IV fluid resuscitation Management of electrolyte dysfunction that develops And follow anion gap acidosis frequently to assess success of treatment Qualifiers: Diabetes mellitus complication detail: without coma Qualified Code(s): E10.10 - Type 1 diabetes mellitus with ketoacidosis without coma (2) Nausea & vomiting Conclusion/Plan: Due to DKA. She has a benign abdominal exam. Normal bowel sounds. : Zofran, Phenergan, IV fluids Qualifiers: Vomiting type: unspecified Vomiting Intractability: intractable Qualified Code(s): R11.2 - Nausea with vomiting, unspecified (3) Dehydration Conclusion/Plan: With acute kidney injury. Creatinine is newly elevated to 1.1 for her. Oral mucosa is dry. Due to nausea and vomiting. Plan: Fluid resuscitation with normal saline followed by D5 (4) Hyperkalemia Conclusion/Plan: Recheck in a few hours to see if it has gone down. I would anticipate it would since she is can be getting insulin. - Lab Results Ramirez Peacock: 12/01/18 16:50 12/01/18 18:05 - EKG Results EKG Interpreted Independently: No <Delfina Kellogg - Last Filed: 12/01/18 18:47> - Lab Results Lab results reviewed: Yes Ramirez Peacock: 12/01/18 16:50 12/01/18 18:05 - Diagnostic Imaging Results Diagnostic Imaging Results: positive: Final report reviewed - EKG Results EKG Interpreted Independently: Yes <Luis Bishop - Last Filed: 12/01/18 20:26> Core Measures - Anticipated LOS I expect patient to be DC'd or transferred within 96 hours.: Yes - DVT/VTE - Prophylaxis VTE/DVT Device ordered at admit?: Yes <Delfina Kellogg - Last Filed: 12/01/18 18:47> - DVT/VTE - Prophylaxis VTE/DVT Device ordered at admit?: Yes VTE/DVT Prophylaxis med ordered at admit?: Yes <Luis Bishop - Last Filed: 12/01/18 20:26> - Issues Hospital Issues and Management Plan: DKA requiring IV hydration and IV insulin with frequent blood draws. (Luis Bishop)
[2018-12-01] MEDS ORDERED: SODIUM CHLORIDE 0.9% 1,000 ML IV SCH (18:00)
[2018-12-01] MEDS ORDERED: DEXTROSE 5%-0.9% NACL 1,000 ML IV SCH (18:00)
[2018-12-01] MEDS ORDERED: INSULIN REGULAR HUMAN 100 UNIT in SODIUM CHLORIDE 0.9% 100ML 99 ML IV SCH (18:00)
[2018-12-01] MEDS: INSULIN REGULAR HUMAN 100 UNIT in SODIUM CHLORIDE 0.9% 100ML 99 ML IV STA (18:01)
[2018-12-01 18:19] LABS: HB2 TOTAL 13.9 g/dL; HEMOGLOBIN A1C 0.87 g/dL; HEMOGLOBIN A1C % 7.9 % (4.6-6.2)
[2018-12-01 18:29] LABS: CREATININE 1.1 mg/dL (0.4-1.0)
[2018-12-01 20:47] LABS: CALCIUM 8.8 mg/dL (8.5-10.3); CREATININE 1.1 mg/dL (0.4-1.0)
[2018-12-01] MEDS: POTASSIUM CHLOR 10 MEQ/100 ML 10 MEQ/100 ML BAG IV SCH ×2 (21:13→22:54)
--- NOTE | 2018-12-01 21:41 | CONSULTATION NOTE ---
Consultation Report: Call to [phone] for IV placement. diagnosis, DKA, requiring multiple lines. Pt drowsy but oriented. IV start explained. 20ga IV placed at R FA with US attempt x1. J loop and cap placed, aspirates and flushes easily. Secured. Pt tolerated procedure without complaint.
[2018-12-01] MEDS ORDERED: D5.45NS W/20 MEQ KCL 1,000 ML IV SCH (23:45)
[2018-12-02] MEDS: INSULIN REGULAR HUMAN 100 UNIT in SODIUM CHLORIDE 0.9% 100ML 99 ML IV STA (02:57)
[2018-12-02 05:09] LABS: VBG BASE EXCESS -7.8 mmol/L (-2 - +2); VBG PH 7.34 (7.31-7.41); VBG PO2 177.6 mmHg (25-47); VBG TOTAL CO2 17.9 mmol/L (24-29)
[2018-12-02 05:18] LABS: BASOPHILS % (AUTO) 0.4 %; EOSINOPHILS % (AUTO) 0.1 %; HGB - HEMOGLOBIN 11.4 g/dL (12.0-16.0); MEAN CORPUSCULAR HEMOGLOBIN 28.6 pg (27.0-31.0); MEAN CORPUSCULAR HGB CONC 32.8 g/dL (32.0-36.0); MEAN CORPUSCULAR VOLUME 87.4 fL (81.0-99.0); MEAN PLATELET VOLUME 9.5 fL (7.9-10.8); MONOCYTES % (AUTO) 10.9 %; NEUTROPHILS % (AUTO) 72.9 %; PLT - PLATELET COUNT 368 10^3/uL (130-450); RED BLOOD COUNT 3.98 10^6/uL (4.20-5.40); RED CELL DISTRIBUTION WIDTH 13.4 % (12.0-15.0); WHITE BLOOD COUNT 22.8 x10^3/uL (4.8-10.8)
[2018-12-02 05:19] LABS: BUN - BLOOD UREA NITROGEN 18 mg/dL (6-20); CALCIUM 8.3 mg/dL (8.5-10.3); CARBON DIOXIDE - CO2 18 mmol/L (21-32); CHLORIDE 114 mmol/L (101-111); CREATININE 0.9 mg/dL (0.4-1.0); GFR - MDRD 75 (>89); GLUCOSE 128 mg/dL (70-100); SODIUM 140 mmol/L (135-145)
[2018-12-02 05:24] LABS: ABNORMAL LYMPHS % (MANUAL) 0 %; BAND NEUTROPHILS % (MANUAL) 0 %
[2018-12-02 05:25] LABS: KETONES, SERUM (ACETEST) NEGATIVE (NEGATIVE)
[2018-12-02] MEDS: SODIUM CHLORIDE FLUSH 0.9% 10 ML SYRINGE IVP SCH ×3 (05:34→17:37)
[2018-12-02 05:46] LABS: ALBUMIN 3.2 g/dL (3.2-5.5); MAGNESIUM 1.8 mg/dL (1.7-2.8); PHOSPHORUS 2.3 mg/dL (2.5-4.6)
[2018-12-02] MEDS ORDERED: POTASSIUM PHOSPHATE 15 MMOL in SODIUM CHLORIDE 0.9% 250 ML IV ONE (05:50)
[2018-12-02 05:53] LABS: LYMPHOCYTES # (MANUAL) 3.4 10^3/uL (1.5-3.5); LYMPHOCYTES % (MANUAL) 15 %; MONOCYTES # (MANUAL) 2.3 10^3/uL (0.0-1.0)
[2018-12-02 05:54] LABS: PLATELET ESTIMATE, MANUAL NORMAL (130-450,000) (NORMAL); PLATELET MORPHOLOGY NORMAL APPEARANCE (NORMAL); RBC MORPHOLOGY (MULTIPLE) NORMAL APPEARANCE (NORMAL)
[2018-12-02 05:55] LABS: DIFFERENTIAL COMMENT MANUAL DIFFERENTIAL
[2018-12-02] MEDS ORDERED: BENZOCAINE/MENTHOL LOZENGE MM PRN (08:40)
[2018-12-02] MEDS ORDERED: SODIUM CHLORIDE 0.9% 500 ML ONE (10:43)
[2018-12-02] MEDS: INSULIN ASPART 300 UNIT/3 ML PEN SUBQ SCH ×2 (12:32→17:03)
--- NOTE | 2018-12-02 13:53 | PROVIDER PROGRESS NOTE ---
Assessment/Plan - Problem List (1) IDDM (insulin dependent diabetes mellitus) Assessment/Plan: A1c is 7.9, indicating fair-poor control. She has had EMT calls for low glu values of 40, but did not come for ER management with those. She is still on an Insulin drip plus Nutritional doses of Insulin, in order to calculate what Insulin requirements she has, with eating. She will need long-acting and short-acting sq Insulin management, while her Insulin pump, which is not working issue is resolved. Diabetic Teaching Niurse consult from [facility] requested, to assist. (2) Malfunction of device Assessment/Plan: The etiology of this episode of DKA was felt to be Insulin pump malfunction, not infection or other stressor. (3) Dehydration Assessment/Plan: Improved. Continue gentle hydration (4) Nausea & vomiting Qualifiers: Vomiting type: unspecified Vomiting Intractability: intractable Qualified Code(s): R11.2 - Nausea with vomiting, unspecified Assessment/Plan: Resolved (5) DKA, type 1 Qualifiers: Diabetes mellitus complication detail: without coma Qualified Code(s): E10.10 - Type 1 diabetes mellitus with ketoacidosis without coma Assessment/Plan: Resolved - Current Meds Current Meds: Current Medications Generic Name Dose Route Start Last Admin Trade Name Freq PRN Reason Stop Dose Admin Acetaminophen 650 mg 12/01/18 17:39 12/02/18 08:48 Tylenol PO 650 mg Q4HR PRN Administration Pain 1 to 4 Insulin Aspart 5 unit 12/02/18 12:00 12/02/18 12:32 Novolog SUBQ 5 unit TIDWM IRAIDA Administration Protocol Sodium Chloride 10 ml 12/02/18 01:00 12/02/18 08:56 Normal Saline Flush 0.9% IVP 10 ml 0100,0900,1700 IRAIDA Administration Throat Lozenges 1 lozenge 12/02/18 08:40 12/02/18 08:48 Cepacol MM 1 lozenge Q2HR PRN Administration Throat pain - Lab Result Fish Bone Diagrams: 12/02/18 04:51 12/02/18 04:51 - Additional Planning My Orders: My Active Orders 12/02/18 Diabetes Outpatient Education [facility] [[facility]] Routine 12/02/18 08:40 Benzocaine/Menthol [Cepacol] 1 lozenge MM Q2HR PRN 12/02/18 09:55 Blood Glucose Checks - Eating [RC] 0800,1200,1700,2100 12/02/18 12:00 Insulin Aspart [NovoLOG] 5 unit SUBQ TIDWM Subjective - Subjective Patient Reports: Feeling Better Objective Vital Signs: Vital Signs - 24 hr 12/01/18 12/01/18 12/01/18 14:43 17:34 18:30 Temperature 97.9 C H Heart Rate 109 H 112 H 126 H Heart Rate [ Monitoring electrodes] Respiratory 18 20 18 Rate Blood Pressure 112/57 L 116/62 116/53 L Blood Pressure [Right Brachial artery] O2 Saturation 100 100 100 12/01/18 12/01/18 12/01/18 19:05 20:00 21:00 Temperature 36.6 C Heart Rate Heart Rate [ 116 H 118 H 120 H Monitoring electrodes] Respiratory 16 21 18 Rate Blood Pressure Blood Pressure 129/58 L 113/50 L 118/50 L [Right Brachial artery] O2 Saturation 99 99 100 12/01/18 12/01/18 12/02/18 22:00 23:00 00:00 Temperature 36.6 C Heart Rate Heart Rate [ 116 H 121 H 121 H Monitoring electrodes] Respiratory 20 19 19 Rate Blood Pressure Blood Pressure 116/60 110/60 117/54 L [Right Brachial artery] O2 Saturation 99 97 98 12/02/18 12/02/18 12/02/18 01:00 02:00 03:00 Temperature 37.1 C Heart Rate Heart Rate [ 115 H 114 H 112 H Monitoring electrodes] Respiratory 18 20 18 Rate Blood Pressure Blood Pressure 114/57 L 104/49 L 109/52 L [Right Brachial artery] O2 Saturation 97 99 97 12/02/18 12/02/18 12/02/18 04:00 05:00 06:00 Temperature 37.1 C Heart Rate Heart Rate [ 109 H 104 H 105 H Monitoring electrodes] Respiratory 19 18 20 Rate Blood Pressure Blood Pressure 111/54 L 115/59 L 101/54 L [Right Brachial artery] O2 Saturation 97 100 96 12/02/18 12/02/18 12/02/18 07:00 08:00 09:00 Temperature 36.6 C Heart Rate Heart Rate [ 100 97 107 H Monitoring electrodes] Respiratory 19 19 17 Rate Blood Pressure Blood Pressure 131/64 H 130/71 127/72 [Right Brachial artery] O2 Saturation 100 99 99 12/02/18 12/02/18 12/02/18 10:00 11:00 12:00 Temperature Heart Rate Heart Rate [ 110 H 118 H 115 H Monitoring electrodes] Respiratory 22 20 25 H Rate Blood Pressure Blood Pressure 123/58 L 109/54 L 108/57 L [Right Brachial artery] O2 Saturation 99 96 97 12/02/18 13:00 Temperature Heart Rate Heart Rate [ 107 H Monitoring electrodes] Respiratory 20 Rate Blood Pressure Blood Pressure 114/57 L [Right Brachial artery] O2 Saturation 100 Oxygen O2 Source Room air I&O (Last 24 Hrs): Intake and Output Totals x24h 11/30/18 12/01/18 12/02/18 23:59 23:59 23:59 Intake Total 3722.35 1823.549 Output Total 500 Balance 3222.35 1823.549 General: Alert, Oriented x3 HEENT: Mucous membr. moist/pink Neck: Supple, No JVD Neuro: Alert, Non Focal Cardiovascular: Regular rate, No murmurs Respiratory: No respiratory distress, Breath sounds nml Abdomen: Soft Extremities: No edema - Results Results: Laboratory Results WBC 22.8 x10^3/uL (4.8-10.8) H 12/02/18 04:51 RBC 3.98 10^6/uL (4.20-5.40) L 12/02/18 04:51 Hgb 11.4 g/dL (12.0-16.0) L 12/02/18 04:51 Hct 34.8 % (37.0-47.0) L 12/02/18 04:51 MCV 87.4 fL (81.0-99.0) 12/02/18 04:51 MCH 28.6 pg (27.0-31.0) 12/02/18 04:51 MCHC 32.8 g/dL (32.0-36.0) 12/02/18 04:51 RDW 13.4 % (12.0-15.0) 12/02/18 04:51 Plt Count 368 10^3/uL (130-450) 12/02/18 04:51 MPV 9.5 fL (7.9-10.8) 12/02/18 04:51 Neut # (Auto) Not Reportable 12/02/18 04:51 Lymph # (Auto) Not Reportable 12/02/18 04:51 Kerr # (Auto) Not Reportable 12/02/18 04:51 Eos # (Auto) Not Reportable 12/02/18 04:51 Baso # (Auto) Not Reportable 12/02/18 04:51 Absolute Nucleated RBC Not Reportable 12/02/18 04:51 Total Counted 100 12/02/18 04:51 Band Neuts % (Manual) 0 % (0-10) 12/02/18 04:51 Abnorm Lymph % (Manual) 0 % 12/02/18 04:51 Nucleated RBC % Not Reportable 12/02/18 04:51 Neutrophils # (Manual) 17.1 10^3/uL (1.5-6.6) H 12/02/18 04:51 Lymphocytes # (Manual) 3.4 10^3/uL (1.5-3.5) 12/02/18 04:51 Monocytes # (Manual) 2.3 10^3/uL (0.0-1.0) H 12/02/18 04:51 Eosinophils # (Manual) 0.0 10^3/uL (0-0.7) 12/02/18 04:51 Basophils # (Manual) 0.0 10^3/uL (0-0.1) 12/02/18 04:51 Differential Comment MANUAL DIFFERENTIAL 12/02/18 04:51 WBC Morphology NORMAL APPEARANCE (NORMAL) 12/02/18 04:51 Platelet Estimate NORMAL (130-450,000) (NORMAL) 12/02/18 04:51 Platelet Morphology NORMAL APPEARANCE (NORMAL) 12/02/18 04:51 RBC Morph Micro Appear NORMAL APPEARANCE (NORMAL) 12/02/18 04:51 VBG pH 7.340 (7.31-7.41) 12/02/18 04:51 VBG pCO2 32.0 mmHg (41-51) L 12/02/18 04:51 VBG pO2 177.6 mmHg (25-47) H 12/02/18 04:51 VBG HCO3 16.9 mmol/L (23-28) L 12/02/18 04:51 VBG Total CO2 17.9 mmol/L (24-29) L 12/02/18 04:51 VBG O2 Saturation 999.0 % (60-80) H 12/02/18 04:51 VBG Base Excess -7.8 mmol/L (-2 - +2) L 12/02/18 04:51 Sodium 140 mmol/L (135-145) 12/02/18 04:51 Potassium 4.5 mmol/L (3.5-5.0) 12/02/18 04:51 Chloride 114 mmol/L (101-111) H 12/02/18 04:51 Carbon Dioxide 18 mmol/L (21-32) L 12/02/18 04:51 Anion Gap 8.0 (6-13) 12/02/18 04:51 BUN 18 mg/dL (6-20) 12/02/18 04:51 Creatinine 0.9 mg/dL (0.4-1.0) 12/02/18 04:51 Estimated GFR (MDRD) 75 (>89) L 12/02/18 04:51 Glucose 128 mg/dL (70-100) H 12/02/18 04:51 Glycated Hemoglobin 7.9 % (4.6-6.2) H 12/01/18 16:50 Estim Average Glucose 180 (70-100) H 12/01/18 16:50 Calcium 8.3 mg/dL (8.5-10.3) L 12/02/18 04:51 Phosphorus 2.3 mg/dL (2.5-4.6) L 12/02/18 04:50 Magnesium 1.8 mg/dL (1.7-2.8) 12/02/18 04:50 Total Bilirubin 1.4 mg/dL (0.2-1.0) H 12/01/18 16:50 AST 17 IU/L (10-42) 12/01/18 16:50 ALT 16 IU/L (10-60) 12/01/18 16:50 Alkaline Phosphatase 94 IU/L (42-121) 12/01/18 16:50 Total Protein 8.1 g/dL (6.7-8.2) 12/01/18 16:50 Albumin 3.2 g/dL (3.2-5.5) 12/02/18 04:50 Globulin 3.9 g/dL (2.1-4.2) 12/01/18 16:50 Albumin/Globulin Ratio 1.1 (1.0-2.2) 12/01/18 16:50 Lipase 16 U/L (22-51) L 12/01/18 16:50 Urine Color YELLOW 12/01/18 15:06 Urine Clarity CLEAR (CLEAR) 12/01/18 15:06 Urine pH 6.0 PH (5.0-7.5) 12/01/18 15:06 Ur Specific [place] 1.025 (1.002-1.030) 12/01/18 15:06 Urine Protein NEGATIVE mg/dL (NEGATIVE) 12/01/18 15:06 Urine Glucose (UA) 500 mg/dL (NEGATIVE) H 12/01/18 15:06 Urine Ketones >=80 mg/dL (NEGATIVE) H 12/01/18 15:06 Urine Occult Blood TRACE-INTA (NEGATIVE) 12/01/18 15:06 Urine Nitrite NEGATIVE (NEGATIVE) 12/01/18 15:06 Urine Bilirubin NEGATIVE (NEGATIVE) 12/01/18 15:06 Urine Urobilinogen 0.2 (NORMAL) E.U./dL (NORMAL) 12/01/18 15:06 Ur Leukocyte Esterase NEGATIVE (NEGATIVE) 12/01/18 15:06 Ur Microscopic Review NOT INDICATED 12/01/18 15:06 Urine Culture Comments NOT INDICATED 12/01/18 15:06 Urine HCG, Qual NEGATIVE 12/01/18 15:06 Nasal Screen MRSA (PCR) NEGATIVE (NEGATIVE) 12/01/18 19:10 Serum Ketones NEGATIVE (NEGATIVE) 12/02/18 04:51
[2018-12-02 17:18] LABS: CALCIUM 8.4 mg/dL (8.5-10.3); CREATININE 1.1 mg/dL (0.4-1.0)
[2018-12-02] MEDS ORDERED: INSULIN REGULAR HUMAN 100 UNIT in SODIUM CHLORIDE 0.9% 100ML 99 ML IV SCH (18:00)
[2018-12-03 05:39] LABS: CALCIUM 8.2 mg/dL (8.5-10.3); CREATININE 0.8 mg/dL (0.4-1.0)
[2018-12-03] MEDS: SODIUM CHLORIDE FLUSH 0.9% 10 ML SYRINGE IVP SCH ×2 (06:37→08:31)
[2018-12-03 07:24] LABS: ALBUMIN 2.9 g/dL (3.2-5.5); MAGNESIUM 1.7 mg/dL (1.7-2.8); PHOSPHORUS 1.5 mg/dL (2.5-4.6)
[2018-12-03] MEDS ORDERED: POTASSIUM PHOSPHATE 21 MMOL in SODIUM CHLORIDE 0.9% 250 ML IV ONE (07:42)
[2018-12-03] MEDS ORDERED: SODIUM CHLORIDE 0.9% 500 ML IV PRN (07:49)
[2018-12-03] MEDS: INSULIN ASPART 300 UNIT/3 ML PEN SUBQ SCH ×2 (08:30→11:55)
--- NOTE | 2018-12-03 10:22 | Discharge Plan ---
Discharge Plan Problem Reviewed?: Yes Disposition: Home, Self Care Condition: Stable Diet: Diabetic Activity Restrictions: No Restrictions Shower Restrictions: No Weight Bearing: Full Weight Health Concerns: Admitted with excessively high glucose levels due to Insulin pump/tubing malfunction, which caused DKA. Plan of Treatment: DKA with nausea and dehydration were treated. The pump and tubing problem was corrected and restarted. Care Goals: Resume usual pump function and Diabetic management. Assessment: The patient is agreeable with the plan. Additional Instructions or Follow Up instructions: See your PCP or Diabetic Provider in follow-up. and with further questions about the Insulin pump. No Smoking: If you smoke, Please STOP! Call for help. Follow-up with: Devorah Gunn MD [Primary Care Provider] -
[2018-12-03 14:08] VITALS: BP 136/80
--- NOTE | 2018-12-08 18:25 | DISCHARGE SUMMARY ---
Discharge Summary Admit Date: 12/01/18 Discharge Date: 12/03/18 Discharging Provider: Dr Blanca John Primary Care Provider: Dr Devorah Allen Code Status: Attempt Resuscitation Condition at Discharge: Stable Discharge Disposition: 01 Home, Self Care - DIAGNOSES Admission Diagnoses: (1) DKA (2) Nausea & vomiting (3) Dehydration (4) Hyperkalemia (5) Insulin pump malfunction Discharge Diagnoses with Status of Each Condition: See below - HPI History of Present Illness: From the admission H&P of Dr Delfina Kellogg: She is a 28-year-old female who has had type 1 diabetes mellitus since childhood. She has had numerous encounters with healthcare system due to hypoglycemia. But she is never had to be brought into the hospital because EMS would usually be able to treat her at the scene and she would recover from hypoglycemia. She took her insulin pump off automatic mode last week because she was having too much hypoglycemia. Today she was getting notifications that the "flow" was blocked. This morning she began vomiting at 4 AM and has not bee n able to keep anything down. She has mild mid abdominal pain. Low back pain. She denies fever, chills. She denies any URI symptoms. She denies chest pain, cough, shortness of breath. She denies being . She denies urgency, frequency, dysuria. No one else in the family is sick. In the emergency room Temperature is 97.9, heart rate is 109, blood pressure is 112/57, respiratory rate 18 and 100% on room air. Her potassium was 6. Creatinine is acutely elevated to 1.1. Random glucose was 417. Total bili 1.4. Lipase 16. Venous blood gas shows a pH of 7.254. PCO2 31.3. PO2 55.9. Bicarb 13.5. Base excess (-)12.3. White cell count is elevated at 10.9 and the rest of her CBC is normal. Urinalysis has glucosuria and ketonuria but no infection. Urine test is negative. Serum ketones are positive. She is being admitted to the ICU. She has 2 large IVs, one in each arm. She will be started on a DKA prototocl with insulin drip and hydrated and get nausea control. - HOSPITAL COURSE Hospital Course: (1) DKA Resolved on a DKA protocol. There was no infection found that gave her this episode of DKA, but rather lack of Insulin treatment due to Insulin pump malfunction. (2) IDDM (insulin dependent diabetes mellitus) Her A1c was 7.9, indicating fair-poor control. She has had EMT calls for low glu values of 40, but did not come for ER management with those. She was started on a carb-controlled diet. The thought was that she would need long-acting and short-acting sq Insulin management, while her non-functioning Insulin pump was repaired. (3) Malfunction of device Diabetic Teaching Nurse was consulted from [facility]. She got the device to work: it was felt to be Insulin tubing malfunction. The working tubing was re-inserted by the patient, under the Diabetic nurse's supervision, she was monitored for 1/2 a day and discharged in stable condition. (3) Dehydration Improved with gentle iv hydration (4) Nausea & vomiting [place] to be related to DKA and it resolved with prn anti-emetics. - ALLERGIES Allergies/Adverse Reactions: Allergies Allergy/AdvReac Type Severity Reaction Status Date / Time No Known Drug Allergies Allergy Verified 12/01/18 14:47 - MEDICATIONS Home Medications: Ambulatory Orders Medication Instructions Recorded Confirmed Escitalopram Oxalate [Lexapro] 7.5 mg PO DAILY 12/22/16 12/02/18 Insulin Aspart [NovoLOG] See Protocol SQ TITR 12/22/16 12/02/18 Levonorgestrel-Ethin Estradiol 1 tab PO DAILY 12/22/16 12/02/18 [Marlissa-28 Tablet] Liothyronine [Cytomel] 5 mcg PO BID 12/22/16 12/02/18 buPROPion [Wellbutrin Xl] 300 mg PO DAILY 12/22/16 12/02/18 - PHYSICAL EXAM AT DISCHARGE General Appearance: positive: No acute distress Eyes Bilateral: positive: Normal inspection, PERRL, EOMI ENT: positive: ENT inspection nml Neck: positive: Nml inspection Respiratory: positive: No respiratory distress, Breath sounds nml Cardiovascular: positive: Regular rate & rhythm, No murmur Abdomen: positive: Non-tender Extremities: positive: No pedal edema Neurologic/Psychiatric: positive: Oriented x3 - LABS Result Diagrams: 12/02/18 04:51 12/03/18 04:40 - DIAGNOSTIC IMAGING Diagnostic Imaging Results: Final report reviewed - FOLLOW UP Follow Up: See PCP in 1-2 weeks in hospital follow-up. - TIME SPENT Time Spent in Discharge (Minutes): 45
== END 2018-12-03 16:45 | disposition home or self-care (01) | DRG 638 ==
LOC: EDUNIT# → ED 14:34 → MS3 17:39 → ICU 19:02
PROVIDERS: ADMIT Specialist; ATTEND Internal Medicine
DX: E10.10 Type 1 diabetes mellitus with ketoacidosis without coma (principal); T85.694A Other mechanical complication of insulin pump, initial encounter; F32.9 Major depressive disorder, single episode, unspecified; Z79.4 Long term (current) use of insulin; E86.0 Dehydration; E87.5 Hyperkalemia; T38.3X6A Underdosing of insulin and oral hypoglycemic [antidiabetic] drugs, initial encounter; Z91.138 Patient's unintentional underdosing of medication regimen for other reason
CPT/HCPCS: 36415; 80048; 80053; 81003; 81025; 82009; 82040; 82803; 82947; 83036; 83690; 83735; 84100; 84132; 85025; 87150; 93005; 96361; 96374; 99285; 99291; A9270; J1170; J1815; J7120; 81001; 87086

== ENCOUNTER 2020-04-30 07:38 | Outpatient (CLI) | payer MEDICAID | END 2020-04-30 07:39 | disposition critical access hospital (66) | LOC: EMS 07:38 | PROVIDERS: ATTEND Emergency Medicine | DX: R45.89 Other symptoms and signs involving emotional state (principal) | CPT/HCPCS: A0425; A0429; A0999 ==

== ENCOUNTER 2020-04-30 08:14 | Emergency (ER) | payer MEDICAID ==
[2020-04-30 08:44] VITALS: BP 157/85
[2020-04-30 09:36] LABS: BASOPHILS % (AUTO) 0.4 %; EOSINOPHILS # (AUTO) 0.1 10^3/uL (0.0-0.7); EOSINOPHILS % (AUTO) 0.8 %; LYMPHOCYTES # (AUTO) 3.6 10^3/uL (1.5-3.5); LYMPHOCYTES % (AUTO) 50.6 %; MEAN CORPUSCULAR HEMOGLOBIN 28.4 pg (27.0-31.0); MEAN CORPUSCULAR HGB CONC 32.3 g/dL (32.0-36.0); MEAN PLATELET VOLUME 9.3 fL (7.9-10.8); MONOCYTES # (AUTO) 0.6 10^3/uL (0.0-1.0); MONOCYTES % (AUTO) 8.6 %; NEUTROPHILS # (AUTO) 2.8 10^3/uL (1.5-6.6); NEUTROPHILS % (AUTO) 39.5 %; PLT - PLATELET COUNT 334 10^3/uL (130-450); RED BLOOD COUNT 4.58 10^6/uL (4.20-5.40); RED CELL DISTRIBUTION WIDTH 13.2 % (12.0-15.0); WHITE BLOOD COUNT 7.1 x10^3/uL (4.8-10.8)
[2020-04-30 09:52] LABS: ACETAMINOPHEN < 10 ug/mL (10-30); ALBUMIN/GLOBULIN RATIO 1.1 (1.0-2.2); ALKALINE PHOSPHATASE 71 IU/L (42-121); ALT ALANINE AMINOTRANSFERASE 16 IU/L (10-60); AST ASPARTATE AMINOTRANSFERASE 15 IU/L (10-42); BILIRUBIN,TOTAL 0.2 mg/dL (0.2-1.0); BUN - BLOOD UREA NITROGEN 12 mg/dL (6-20); CALCIUM 9.3 mg/dL (8.5-10.3); CARBON DIOXIDE - CO2 27 mmol/L (21-32); CHLORIDE 98 mmol/L (101-111); CREATININE 0.8 mg/dL (0.4-1.0); GLUCOSE 285 mg/dL (70-100); LIPASE 20 U/L (22-51); SALICYLATE < 6.0 mg/dL; TOTAL PROTEIN 7.8 g/dL (6.7-8.2)
--- NOTE | 2020-04-30 12:16 | ED Physician Documentation ---
PD HPI MHE - Stated complaint Stated Complaint: MHE - Chief complaint Chief Complaint: MHE - History obtained from History obtained from: Patient - History of Present Illness Primary symptom: Depression, Anxiety, Other (wants to talk) Contributing factors: Family Similar symptoms before: Diagnosis (depression/anxiety) Recently seen: Not recently seen - Additional information Additional information: 29-year-old female diabetic type I is living with her mother and she has been living with her mother continuously she is having some difficulty with her interactions with her mother and she is wanting someone to talk to. She is a vague and brings in a pad with 10 or more pages of written statements that are rather rambling. She denies any current illness but she does not like her new pump/monitor system as there is a lot of daily work with calibration and an unfriendly user interface. she has brought her a1C down further with this closed loop system. 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 : None HEENT: None Psych: Depression, Anxiety Musculoskeletal: None Derm: None - Past Surgical History Past Surgical History: No - Present Medications Home Medications: Ambulatory Orders Medication Instructions Recorded Confirmed Escitalopram Oxalate [Lexapro] 7.5 mg PO DAILY 12/22/16 12/02/18 Insulin Aspart [NovoLOG] See Protocol SQ TITR 12/22/16 12/02/18 Levonorgestrel-Ethin Estradiol 1 tab PO DAILY 12/22/16 12/02/18 [Marlissa-28 Tablet] Liothyronine [Cytomel] 5 mcg PO BID 12/22/16 12/02/18 buPROPion [Wellbutrin Xl] 300 mg PO DAILY 12/22/16 12/02/18 - Allergies Allergies/Adverse Reactions: Allergies Allergy/AdvReac Type Severity Reaction Status Date / Time No Known Drug Allergies Allergy Verified 04/30/20 08:40 - Social History Does the pt smoke?: No Smoking Status: Never smoker Does the pt drink ETOH?: No Does the pt have substance abuse?: No - Immunizations Immunizations are current?: Yes - POLST Patient has POLST: No PD ED PE NORMAL - Vitals Vital signs reviewed: Yes (hpyertnesive ) - General General: Alert and oriented X 3, No acute distress, Well developed/nourished - HEENT HEENT: Atraumatic, PERRL, EOMI, Pharynx benign, Other (right TM is flush) - Neck Neck: Supple, no meningeal sign, No bony TTP - Cardiac Cardiac: RRR, No murmur - Respiratory Respiratory: No respiratory distress, Clear bilaterally - Abdomen Abdomen: Normal bowel sounds, Soft, Non tender, Non distended, No organomegaly - Back Back: No CVA TTP, No spinal TTP - Derm Derm: Normal color, Warm and dry, No rash - Extremities Extremities: No deformity, No edema - Neuro Neuro: Alert and oriented X 3, pile trimmer 2-12 intact, No motor deficit, No sensory def icit, Normal speech Eye Opening: Spontaneous Motor: Obeys Commands Verbal: Oriented GCS Score: 15 - Psych Psych: Normal mood, Normal affect Results - Vitals Vitals: Vital Signs - 24 hr 04/30/20 08:28 Temperature 36.5 C Heart Rate 94 Respiratory 16 Rate Blood Pressure 157/85 H O2 Saturation 100 Oxygen O2 Source Room air - Labs Labs: Laboratory Tests 04/30/20 04/30/20 04/30/20 09:31 09:31 09:31 WBC 7.1 RBC 4.58 Hgb 13.0 Hct 40.3 MCV 88.0 MCH 28.4 MCHC 32.3 RDW 13.2 Plt Count 334 MPV 9.3 Neut # (Auto) 2.8 Lymph # (Auto) 3.6 H [place] # (Auto) 0.6 Eos # (Auto) 0.1 Baso # (Auto) 0.0 Absolute Nucleated RBC 0.00 Nucleated RBC % 0.0 Sodium 135 Potassium 3.7 Chloride 98 L Carbon Dioxide 27 Anion Gap 10.0 BUN 12 Creatinine 0.8 Estimated GFR (MDRD) 85 L Glucose 285 H Calcium 9.3 Total Bilirubin 0.2 AST 15 ALT 16 Alkaline Phosphatase 71 Total Protein 7.8 Albumin 4.0 Globulin 3.8 Albumin/Globulin Ratio 1.1 Lipase 20 L TSH 1.37 Salicylates < 6.0 Acetaminophen < 10 L Ethyl Alcohol < 5.0 PD MEDICAL DECISION MAKING - ED course Complexity details: considered differential, d/w patient ED course: 29 y/o female type one diabetic with depression and anxiety comes to the ED with complaints of difficulty at home getting along with her mother. She has some features concerning for obsessive compulsive disorder as well as PTSD. She has been in counselling previously but not for about 2 1/2 years now. The hospice social worker was consulted in the case and was able to provide resources for the patient including a respite stay at a hotel and referral for counselling as well as contact with PMD. Departure - Departure Disposition: Home, Self Care Clinical Impression: Obsessive-compulsive disorder Qualifiers: Obsessive-compulsive disorder type: mixed obsessional thoughts and acts Qualified Code(s): F42.2 - Mixed obsessional thoughts and acts Depression Qualifiers: Depression Type: major depressive disorder Major depression recurrence: recurrent Active/Remission status: currently active Major depression episode severity: mild Qualified Code(s): F33.0 - Major depressive disorder, recurrent, mild Instructions: ED Depression, ED Obsessive Compulsive Disorder Follow-Up: Devorah Gunn MD [Primary Care Provider] - Comments: Follow up with counselling and your regular doctor as planned with the hospice social worker. Discharge Date/Time: 04/30/20 13:03
== END 2020-04-30 13:03 | disposition home or self-care (01) ==
LOC: EDUNIT# → ED 08:14
DX: F33.0 Major depressive disorder, recurrent, mild (principal); F42.2 Mixed obsessional thoughts and acts; F43.10 Post-traumatic stress disorder, unspecified; F41.9 Anxiety disorder, unspecified; E10.9 Type 1 diabetes mellitus without complications
CPT/HCPCS: 36415; 80053; 80307; 80320; 80329; 83690; 84443; 85025; 99283

== ENCOUNTER 2020-09-28 16:07 | Emergency (ER) | payer MEDICAID ==
[2020-09-28 16:59] LABS: BILIRUBIN,URINE NEGATIVE (NEGATIVE); GLUCOSE, URINE (UA) >=1000 mg/dL (NEGATIVE); KETONES,URINE (UA) >=80 mg/dL (NEGATIVE); LEUKOCYTE ESTERASE, URINE NEGATIVE (NEGATIVE); NITRITE,URINE NEGATIVE (NEGATIVE); OCCULT BLOOD,URINE TRACE-LYSE (NEGATIVE); PH,URINE 5.5 PH (5.0-7.5); PROTEIN,URINE NEGATIVE (NEGATIVE); UROBILINOGEN,URINE 0.2 (NORMAL) E.U./dL (NORMAL)
[2020-09-28 17:05] LABS: BASOPHILS % (AUTO) 0.5 %; EOSINOPHILS % (AUTO) 0.2 %; HCT - HEMATOCRIT 39.5 % (37.0-47.0); HGB - HEMOGLOBIN 12.8 g/dL (12.0-16.0); LYMPHOCYTES # (AUTO) 1.2 10^3/uL (1.5-3.5); LYMPHOCYTES % (AUTO) 20.7 %; MEAN CORPUSCULAR HGB CONC 32.4 g/dL (32.0-36.0); MEAN CORPUSCULAR VOLUME 89.4 fL (81.0-99.0); MEAN PLATELET VOLUME 9.4 fL (7.9-10.8); MONOCYTES # (AUTO) 0.2 10^3/uL (0.0-1.0); MONOCYTES % (AUTO) 2.5 %; NEUTROPHILS # (AUTO) 4.5 10^3/uL (1.5-6.6); NEUTROPHILS % (AUTO) 75.9 %; PLT - PLATELET COUNT 346 10^3/uL (130-450); RED BLOOD COUNT 4.42 10^6/uL (4.20-5.40); RED CELL DISTRIBUTION WIDTH 12.7 % (12.0-15.0); WHITE BLOOD COUNT 5.9 x10^3/uL (4.8-10.8)
[2020-09-28 17:05] LABS: BACTERIA,URINE Few /HPF (None Seen); CLARITY,URINE CLEAR (CLEAR); RBC,URINE 0-5 /HPF (0-5); SQUAMOUS EPITHELIAL CELL,UR FEW Squamous (<= Few); WBC,URINE 0-3 /HPF (0-5)
[2020-09-28 17:17] LABS: KETONES, SERUM (ACETEST) SMALL (NEGATIVE)
[2020-09-28 17:19] LABS: ALBUMIN 4.4 g/dL (3.2-5.5); ALBUMIN/GLOBULIN RATIO 1.2 (1.0-2.2); ALKALINE PHOSPHATASE 83 IU/L (42-121); ALT ALANINE AMINOTRANSFERASE 17 IU/L (10-60); AST ASPARTATE AMINOTRANSFERASE 18 IU/L (10-42); BILIRUBIN,TOTAL 1.1 mg/dL (0.2-1.0); BUN - BLOOD UREA NITROGEN 15 mg/dL (6-20); CALCIUM 9.2 mg/dL (8.5-10.3); CARBON DIOXIDE - CO2 23 mmol/L (21-32); CHLORIDE 99 mmol/L (101-111); GFR - MDRD 66 (>89); GLUCOSE 330 mg/dL (70-100); POTASSIUM 4.1 mmol/L (3.5-5.0); SODIUM 134 mmol/L (135-145); TOTAL PROTEIN 8.2 g/dL (6.7-8.2)
--- NOTE | 2020-09-28 17:33 | ED Physician Documentation ---
History of Present Illness - Stated complaint Stated Complaint: VOMITING,NAUSEA - Chief complaint Chief Complaint: Abd Pain - Additonal information Additional information: 29-year-old female who is a type I diabetic presents to the emergency department for concerns that she may be in DKA. She does have a continuous glucose monitor/insulin pump. At 5 AM she was changing her insulin site. However at around 1230 she began to notice that she was feeling lightheaded nauseated and began vomiting. She looked at her insulin site and noted that the needle was not correctly inserted. She checked her CGM and noted that her blood glucose was in the 380s. She reinserted the insulin needle and came to the ER. On presentation here her blood glucose was initially 326. She reports that now that the insulin pump is infusing properly her sy mptoms are improving. Typically it runs at a basal rate of around 1 unit an hour. She denies any recent fevers, cough, cold, congestion. No abdominal pain, no dysuria urgency or frequency. Review of Systems Constitutional: denies: Fever Eyes: reports: Reviewed and negative Nose: reports: Reviewed and negative Throat: reports: Reviewed and negative Cardiac: reports: Reviewed and negative Respiratory: reports: Reviewed and negative GI: reports: Nausea, Vomiting. 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 : None HEENT: None Psych: Depression, Anxiety Musculoskeletal: None Derm: None - Past Surgical History Past Surgical History: No - Present Medications Home Medications: Ambulatory Orders Medication Instructions Recorded Confirmed Insulin Aspart [NovoLOG] See Protocol SQ TITR 12/22/16 09/28/20 Levonorgestrel-Ethin Estradiol 1 tab PO DAILY 12/22/16 09/28/20 [Marlissa-28 Tablet] Liothyronine [Cytomel] 5 mcg PO BID 12/22/16 09/28/20 buPROPion [Wellbutrin Xl] 300 mg PO DAILY 12/22/16 09/28/20 Duloxetine HCl [Cymbalta] 60 mg PO DAILY 09/28/20 09/28/20 - Allergies Allergies/Adverse Reactions: Allergies Allergy/AdvReac Type Severity Reaction Status Date / Time No Known Drug Allergies Allergy Verified 09/28/20 16:21 - Social History Does the pt smoke?: No Smoking Status: Never smoker Does the pt drink ETOH?: No Does the pt have substance abuse?: No - Immunizations Immunizations are current?: Yes - POLST Patient has POLST: No PD ED PE EXPANDED - General General: Alert, No acute distress, Well developed/nourished - Cardiac Cardiac: Regular Rate - Respiratory Respiratory: Clear to ausultation stefanie. No: Distress, Labored - Abdomen Abdomen: Normal Bowel sounds. No: Tender to palpation - Derm Derm: Normal color, Warm and dry. No: Rash - Extremities Extremities: Normal. No: Deformity, Tenderness - Neuro Neuro: Alert and Oriented X 3, CNII-XII intact - GCS Eye Opening: Spontaneous Motor: Obeys Commands Verbal: Oriented Total: 15 Results - Vitals Vitals: Vital Signs - 24 hr 09/28/20 09/28/20 09/28/20 16:22 17:43 18:00 Temperature 36.5 C Heart Rate 103 H 101 H 97 Respiratory 18 18 16 Rate Blood Pressure 133/72 H 122/73 126/70 O2 Saturation 100 99 99 09/28/20 18:30 Temperature Heart Rate 99 Respiratory 16 Rate Blood Pressure 126/67 O2 Saturation 99 Oxygen O2 Source Room air - Labs Labs: Laboratory Tests 09/28/20 09/28/20 09/28/20 16:51 16:58 16:58 WBC 5.9 RBC 4.42 Hgb 12.8 Hct 39.5 MCV 89.4 MCH 29.0 MCHC 32.4 RDW 12.7 Plt Count 346 MPV 9.4 Neut # (Auto) 4.5 Lymph # (Auto) 1.2 L [place] # (Auto) 0.2 Eos # (Auto) 0.0 Baso # (Auto) 0.0 Absolute Nucleated RBC 0.00 Nucleated RBC % 0.0 VBG pH VBG pCO2 VBG pO2 VBG HCO3 VBG Total CO2 VBG O2 Saturation VBG Base Excess Sodium 134 L Potassium 4.1 Chloride 99 L Carbon Dioxide 23 Anion Gap 12.0 BUN 15 Creatinine 1.0 Estimated GFR (MDRD) 66 L Glucose 330 H Lactic Acid Calcium 9.2 Total Bilirubin 1.1 H AST 18 ALT 17 Alkaline Phosphatase 83 Total Protein 8.2 Albumin 4.4 Globulin 3.8 Albumin/Globulin Ratio 1.2 Urine Color YELLOW Urine Clarity CLEAR Urine pH 5.5 Ur Specific [place] 1.025 Urine Protein NEGATIVE Urine Glucose (UA) >=1000 H Urine Ketones >=80 H Urine Occult Blood TRACE-LYSE Urine Nitrite NEGATIVE Urine Bilirubin NEGATIVE Urine Urobilinogen 0.2 (NORMAL) Ur Leukocyte Esterase NEGATIVE Urine RBC 0-5 Urine WBC 0-3 Ur Squamous Epith Cells FEW Squamous Urine Bacteria Few Urine Culture Comments NOT INDICATED Serum Ketones SMALL H 09/28/20 09/28/20 09/28/20 16:58 17:31 18:48 WBC RBC Hgb Hct MCV MCH MCHC RDW Plt Count MPV Neut # (Auto) Lymph # (Auto) [place] # (Auto) Eos # (Auto) Baso # (Auto) Absolute Nucleated RBC Nucleated RBC % VBG pH 7.358 VBG pCO2 40.3 L VBG pO2 29.6 VBG HCO3 22.2 L VBG Total CO2 23.4 L VBG O2 Saturation 61.0 VBG Base Excess -3.1 L Sodium 137 Potassium 4.3 Chloride 103 Carbon Dioxide 21 Anion Gap 13.0 BUN 13 Creatinine 0.8 Estimated GFR (MDRD) 85 L Glucose 255 H Lactic Acid 1.4 Calcium 8.5 Total Bilirubin AST ALT Alkaline Phosphatase Total Protein Albumin Globulin Albumin/Globulin Ratio Urine Color Urine Clarity Urine pH Ur Specific [place] Urine Protein Urine Glucose (UA) Urine Ketones Urine Occult Blood Urine Nitrite Urine Bilirubin Urine Urobilinogen Ur Leukocyte Esterase Urine RBC Urine WBC Ur Squamous Epith Cells Urine Bacteria Urine Culture Comments Serum Ketones SMALL H PD MEDICAL DECISION MAKING - ED course Complexity details: reviewed results, re-evaluated patient, d/w patient ED course: 29-year-old female who is a type I diabetic presents the emergency department for evaluation of nausea and vomiting. She is concerned she may have DKA. She unfortunately mis-inserted her insulin needle and was without her basal insulin for about 9 hours. She corrected this about 3 hours ago. On presentation she appears well is mildly tachycardic with a heart rate in the low 100s. Her basal insulin has now been infusing for about 3 hours and the nausea and vomiting is improving. She does have mild to small positive blood ketones and a blood glucose greater than 300. Reassuringly she is not excessively dehydrated. BUN and creatinine are appropriate. Her potassium is normal. I will administer her IV fluids and reevaluate now that her insulin is being delivered at her typical basal rate of 1 unit an hour. 1900: Patient has been in the ER for just over 2 hours. She is received a liter of fluids. Screening labs do show mild ketones. Her VBG did show not show significant acidosis. There was no anion gap. Potassium and renal function were normal. On reassessment her blood sugars have started to decline with the use of her insulin pump at baseline. I did repeat her BMP that again showed no acute worrisome findings. Her ketones do remain positive but she is no longer vomiting and feels ready for discharge home. Departure - Departure Disposition: , Self Care Clinical Impression: DKA, type 1 Qualifiers: Diabetes mellitus complication detail: without coma Qualified Code(s): E10.10 - Type 1 diabetes mellitus with ketoacidosis without coma Condition: Stable Record reviewed to determine appropriate education?: Yes Follow-Up: Devorah Gunn MD [Primary Care Provider] - Comments: Alda you were seen in the emergency department today for nausea and vomiting after your insulin was not being delivered appropriately. You did enter into a mild form of DKA. This has resolved here in the emergency department after we gave you IV fluids as well as with the administration of insulin which you reconnected. Continue to monitor your sugars at home. If at any point you feel that your symptoms are not improving, you have uncontrolled vomiting fevers feel faint weak or dizzy then please return immediately to the ER. Please discuss this ED visit with your primary care provider as soon as possible.
[2020-09-28 17:37] LABS: VBG BASE EXCESS -3.1 mmol/L (-2 - +2); VBG HCO3 22.2 mmol/L (23-28); VBG PCO2 40.3 mmHg (41-51); VBG PH 7.358 (7.31-7.41); VBG PO2 29.6 mmHg (25-47); VBG TOTAL CO2 23.4 mmol/L (24-29)
[2020-09-28] MEDS: ONDANSETRON 4 MG/2 ML VIAL IVP STA (17:42)
[2020-09-28] MEDS: SODIUM CHLORIDE 0.9% 1,000 ML IV STA (17:43)
[2020-09-28 18:58] LABS: KETONES, SERUM (ACETEST) SMALL (NEGATIVE)
[2020-09-28 19:01] LABS: BUN - BLOOD UREA NITROGEN 13 mg/dL (6-20); CALCIUM 8.5 mg/dL (8.5-10.3); CARBON DIOXIDE - CO2 21 mmol/L (21-32); CHLORIDE 103 mmol/L (101-111); CREATININE 0.8 mg/dL (0.4-1.0); GFR - MDRD 85 (>89); GLUCOSE 255 mg/dL (70-100); POTASSIUM 4.3 mmol/L (3.5-5.0); SODIUM 137 mmol/L (135-145)
[2020-09-28 19:38] VITALS: BP 139/76
== END 2020-09-28 19:51 | disposition home or self-care (01) ==
LOC: ED 16:07
DX: E10.10 Type 1 diabetes mellitus with ketoacidosis without coma (principal); Z96.41 Presence of insulin pump (external) (internal); Z79.4 Long term (current) use of insulin
CPT/HCPCS: 36415; 80048; 80053; 81001; 82009; 82803; 83605; 85025; 87086; 96361; 96374; 99281

== ENCOUNTER 2021-12-28 11:10 | Outpatient (CLI) | payer MEDICAID | END 2021-12-28 11:11 | disposition EMS.NT | LOC: EMS 11:10 | DX: E11.649 Type 2 diabetes mellitus with hypoglycemia without coma (principal); Z79.4 Long term (current) use of insulin ==

== ENCOUNTER 2022-02-27 03:36 | Outpatient (CLI) | payer MEDICAID | END 2022-02-27 03:37 | disposition critical access hospital (66) | LOC: EMS 03:36 | DX: R45.89 Other symptoms and signs involving emotional state (principal) | CPT/HCPCS: A0425; A0429; A0999 ==

== ENCOUNTER 2022-02-27 04:55 | Emergency (ER) | payer MEDICAID ==
--- NOTE | 2022-02-27 05:58 | ED Physician Documentation ---
History of Present Illness - Stated complaint Stated Complaint: MHE - Chief complaint Chief Complaint: MHE - History obtained from History obtained from: Patient, EMS - Additonal information Additional information: 31yF with pmh dm1, depression, ptsd, p/w "mental health crisis" prompting her to call ems. patient denies si/hi/avh, and denies drug or alcohol use but is acting bizarrely, slow to answer questions. history limited by patient being a difficult historian. 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 : None HEENT: None Psych: Depression, Anxiety Musculoskeletal: None Derm: None - Past Surgical History Past Surgical History: No - Present Medications Home Medications: Ambulatory Orders Medication Instructions Recorded Confirmed Insulin Aspart [NovoLOG] See Protocol SQ TITR 12/22/16 09/28/20 Levonorgestrel-Ethin Estradiol 1 tab PO DAILY 12/22/16 09/28/20 [Marlissa-28 Tablet] Liothyronine [Cytomel] 5 mcg PO BID 12/22/16 09/28/20 buPROPion [Wellbutrin Xl] 300 mg PO DAILY 12/22/16 09/28/20 Duloxetine HCl [Cymbalta] 60 mg PO DAILY 09/28/20 09/28/20 - Allergies Allergies/Adverse Reactions: Allergies Allergy/AdvReac Type Severity Reaction Status Date / Time No Known Drug Allergies Allergy Verified 02/27/22 05:26 - Social History Does the pt smoke?: No Smoking Status: Never smoker Does the pt drink ETOH?: No Does the pt have substance abuse?: No - Immunizations Immunizations are current?: Yes - POLST Patient has POLST: No PD ED PE NORMAL - Vitals Vital signs reviewed: Yes - General General: Alert and oriented X 3, No acute distress, Well developed/nourished, Other (limited eye contact) - HEENT HEENT: Atraumatic, PERRL, EOMI, Moist mucous membranes, Pharynx benign - Neck Neck: Supple, no meningeal sign - Cardiac Cardiac: RRR - Respiratory Respiratory: No respiratory distress, Clear bilaterally - Abdomen Abdomen: Non tender, Non distended - Derm Derm: Normal color, Warm and dry - Extremities Extremities: No deformity - Neuro Neuro: No motor deficit, No sensory deficit - Psych Psych: Other (psychomotor retardation. limited eye contact. bizarre affect.) Results - Vitals Vitals: Vital Signs - 24 hr 02/27/22 05:16 Temperature 37.3 C Heart Rate 81 Respiratory 16 Rate Blood Pressure 144/72 H O2 Saturation 100 Oxygen O2 Source Room air - Labs Labs: Laboratory Tests 02/27/22 02/27/22 02/27/22 05:55 05:55 05:55 WBC 6.3 RBC 4.42 Hgb 12.9 Hct 38.8 MCV 87.8 MCH 29.2 MCHC 33.2 RDW 12.9 Plt Count 279 MPV 9.5 Neut # (Auto) 2.2 Lymph # (Auto) 3.1 [place] # (Auto) 0.8 Eos # (Auto) 0.1 Baso # (Auto) 0.0 Absolute Nucleated RBC 0.00 Nucleated RBC % 0.0 VBG pH VBG pCO2 VBG pO2 VBG HCO3 VBG Total CO2 VBG O2 Saturation VBG Base Excess Sodium 140 Potassium 3.3 L Chloride 102 Carbon Dioxide 26 Anion Gap 12.0 BUN 15 Creatinine 0.7 Estimated GFR (MDRD) 98 Glucose 211 H Calcium 9.3 Total Bilirubin 0.6 AST 16 ALT 14 Alkaline Phosphatase 64 Total Protein 7.3 Albumin 3.9 Globulin 3.4 Albumin/Globulin Ratio 1.1 Lipase 35 TSH 1.94 Salicylates < 6.0 Acetaminophen < 10 L Ethyl Alcohol < 5.0 Serum Ketones SMALL H 02/27/22 05:55 WBC RBC Hgb Hct MCV MCH MCHC RDW Plt Count MPV Neut # (Auto) Lymph # (Auto) [place] # (Auto) Eos # (Auto) Baso # (Auto) Absolute Nucleated RBC Nucleated RBC % VBG pH 7.413 H VBG pCO2 44.2 VBG pO2 53.0 H VBG HCO3 27.6 VBG Total CO2 28.9 VBG O2 Saturation 88.1 H VBG Base Excess 2.5 H Sodium Potassium Chloride Carbon Dioxide Anion Gap BUN Creatinine Estimated GFR (MDRD) Glucose Calcium Total Bilirubin AST ALT Alkaline Phosphatase Total Protein Albumin Globulin Albumin/Globulin Ratio Lipase TSH Salicylates Acetaminophen Ethyl Alcohol Serum Ketones PD Medical Decision Making - ED course ED course: 31yF p/w "mental health crisis". unable to obtain much information from her but she did allow me to look at her notes/journal which discussed alcoholism and drug abuse as "trauma triggers" and mentioned her ptsd multiple times. mental health counselor is named Emerald Hughes per her report. will obtain labwork, reevaluate. patient endorsed to incoming daytime ED MD Dr. Shen at 7am shift change.
[2022-02-27 06:03] LABS: VBG BASE EXCESS 2.5 mmol/L (-2 - +2); VBG HCO3 27.6 mmol/L (23-28); VBG PCO2 44.2 mmHg (41-51); VBG PH 7.413 (7.31-7.41); VBG TOTAL CO2 28.9 mmol/L (24-29)
[2022-02-27 06:04] LABS: VBG OXYGEN SATURATION 88.1 % (60-80)
[2022-02-27 06:05] LABS: BASOPHILS % (AUTO) 0.5 %; EOSINOPHILS # (AUTO) 0.1 10^3/uL (0.0-0.7); EOSINOPHILS % (AUTO) 1.4 %; HCT - HEMATOCRIT 38.8 % (37.0-47.0); HGB - HEMOGLOBIN 12.9 g/dL (12.0-16.0); LYMPHOCYTES # (AUTO) 3.1 10^3/uL (1.5-3.5); LYMPHOCYTES % (AUTO) 50.2 %; MEAN CORPUSCULAR HEMOGLOBIN 29.2 pg (27.0-31.0); MEAN CORPUSCULAR HGB CONC 33.2 g/dL (32.0-36.0); MEAN CORPUSCULAR VOLUME 87.8 fL (81.0-99.0); MEAN PLATELET VOLUME 9.5 fL (7.9-10.8); MONOCYTES # (AUTO) 0.8 10^3/uL (0.0-1.0); MONOCYTES % (AUTO) 12.6 %; NEUTROPHILS # (AUTO) 2.2 10^3/uL (1.5-6.6); NEUTROPHILS % (AUTO) 35.1 %; PLT - PLATELET COUNT 279 10^3/uL (130-450); RED BLOOD COUNT 4.42 10^6/uL (4.20-5.40); RED CELL DISTRIBUTION WIDTH 12.9 % (12.0-15.0); WHITE BLOOD COUNT 6.3 x10^3/uL (4.8-10.8)
[2022-02-27 06:14] LABS: ACETAMINOPHEN < 10 ug/mL (10-30); ALBUMIN 3.9 g/dL (3.2-5.5); ALBUMIN/GLOBULIN RATIO 1.1 (1.0-2.2); ALKALINE PHOSPHATASE 64 IU/L (42-121); ALT ALANINE AMINOTRANSFERASE 14 IU/L (10-60); AST ASPARTATE AMINOTRANSFERASE 16 IU/L (10-42); BILIRUBIN,TOTAL 0.6 mg/dL (0.2-1.0); BUN - BLOOD UREA NITROGEN 15 mg/dL (6-20); CALCIUM 9.3 mg/dL (8.5-10.3); CARBON DIOXIDE - CO2 26 mmol/L (21-32); CHLORIDE 102 mmol/L (101-111); CREATININE 0.7 mg/dL (0.4-1.0); ETOH - ETHANOL < 5.0 mg/dL; GFR - MDRD 98 (>89); GLUCOSE 211 mg/dL (70-100); LIPASE 35 U/L (22-51); POTASSIUM 3.3 mmol/L (3.5-5.0); SALICYLATE < 6.0 mg/dL; SODIUM 140 mmol/L (135-145); TOTAL PROTEIN 7.3 g/dL (6.7-8.2)
[2022-02-27 06:38] LABS: KETONES, SERUM (ACETEST) SMALL (NEGATIVE)
[2022-02-27] MEDS ORDERED: ACETAMINOPHEN 325 MG TABLET PO STA (06:49)
--- NOTE | 2022-02-27 10:06 | TELEPSYCH PHYS NOTE ---
Telepsych Consultation Note Consult: Array Name: BARBARA AREVALO : 1990 Date and Time: 02/27/2022 12:29:49 PM Location of the patient: [facility] ED Location of the doctor: [place] Length of consult: 25 min This evaluation was conducted via video telepsychiatry with the assistance of onsite staff Reason for consult: psychosis Requested by: Dr. tea Moses History of Present Illness: ? Parts of this note were dictated using voice recognition software and may contain small irregularities and grammatical errors which are unintentional ? . The identity of the patient was verified. The patient was then informed about the process of utilizing telemedicine for evaluation and treatment. Discussed the ability to Opt-out of the tele medicine encounter, ask questions, security issues, and sharing information. The patient consented to proceed with the tele medicine encounter. This evaluation was conducted via video telepsychiatry with assistance of onsite staff ? 31 year old female with a history of OCD and depression who presented to the hospital with a mental health crisis. She denies suicidal or homicidal ideations and tensor plans. The patient has significant cognitive slowing making it difficult to concentrate and verbalize what she's experiencing. The patient reports that over the last 48 hours she's had a lot of confusion. She's been depressed for a long time period she reports that she's been having flashbacks to traumatic events in childhood. However she can't distinguish if it happened to her or someone else. She reports that energy and motivation are decreased. She denies suicidal or homicidal medications and tents are plans. Denies auditory visual hallucinations. She can't even concentrate to be able to have a conversation because there's other conversations around her at this time Collateral Contacted: No Reason for not contacting the collateral:None available Sleep issues?: Yes Sleep Quantity: Sleep Quality: Psychiatric History/Treatment History: Past diagnoses: OCD , deprssion Hospitalizations: No Current Treatment:Yes Medication management: Yes Medications: Therapy: Yes TherapyDesc: therapist Suicide Assessment: PSS-3: 1) Over the past 2 weeks have you felt down, depressed or hopeless? Yes 2) Over the past 2 weeks have you had thoughts of killing yourself? No 3) Have you ever in your life attempted to kill yourself? No Within the past 6 months? JCAHO-based Safety Assessment: Risk Factors Stressors: mental illness Attempts/Self-injury: Yes Description: 2-3 suicide attempts cut Impulsivity:No Drug/Alcohol History:Yes Description: denies smoking, rarely drinks no drugs Trauma History:No Access to firearms:No HI/Violence/Property destruction:No Legal: Yes Description: had a dog who attacked [place] Family Psych History:Yes Description: father -addiction , depression, Family History of suicide:No Protective Factors: Can handle stress well? No Druze? No External: Social supports/ Therapeutic relationships: Yes Description: counselor Relationship history: single Living situation: [place] Employment: Yes Description: Education: graduated HS Responsibility to family/children/work: No Future orientation:Yes Description: Health History: Medical History: DM type 1 Medications & Freq: insulin tiiodothrynin wellbutrin XL 300mg po q daily duloxetine 60mg po q daily Allergies: NKda Mental Status Exam: Appearance and Attire: Good eye contact Psychomotor agitation: Psychomotor retardation Attitude and behavior: Cooperative Speech: Slow Mood: Depressed Affect: Restricted Thought process: Coherent Thought content: No suicidal ideation, No homicidal ideation, confusion , re ports flash backs , does not know if reality based or not Perception: No hallucinations Intel: Average Abstract: [place] Language: No abnormality Orientation: Oriented x 4 Sense: Distractible, Delirious Knowledge: Appropriate for education and socioeconomic status Memory: Intact Insight: Mild impairment Judgement: Severe impairment, Impaired in response and decision making, Impaired in self care Gait: laying in bed Impression/Risk Assessment: Current Suicide Risk Elevated? No Current Violence Risk Elevated? No Issues with ability to care for self? Yes Summary: 31 year old female with the history of OCD and depression who presented to the emergency room with decreased ability to function increased confusion over the last 48 hours depressed mood. Decreased sleep period decreased energy and motivation no suicidal homicidal ideations and tensor plans she denies auditory visual hallucinations but report flashbacks that she doesn't know if it happened to her or someone else. She's very unclear about what is going on at this moment in time period confused with delayed processing speed. No previous psychosis in her history is noted. And she denies this. Recommend a CT head to rule out any other neurological changes on this patient. And medical workup. If negative then patient definitely would benefit from inpatient psychiatric hospitalization reevaluation of her medications at this time. The patient is voluntary Diagnosis: CPT Codes: 41378 - Psychiatric Diagnostic Evaluation with Medical Services Treatment Plan: General: Level of Care: inpatient Psychiatric Clearance: No Observation level 1:1 needed?: Yes Notes: close observation per ED protocol Pharmacological: continue home meds Patient psychotic?No Therapy: supportive Follow up needed while in the hospital?: Yes Number of times: as needed Discussed plan with onsite steam conditioning operator: Yes Who Dr. Shen Other: List names and roles of persons who participated in consult: Dr. Shen
[2022-02-27 10:16] LABS: MUDS CUTOFF CONCENTRATIONS CUTOFF CONC BELOW:
[2022-02-27 10:22] LABS: B. PARAPERTUSSIS- RESP PCR PAN NOT DETECTED; B. PERTUSSIS- RESP PCR PANEL NOT DETECTED; C. PNEUMONIAE- RESP PCR PANEL NOT DETECTED; CORONAVIRUS 229E-RESP PCR NOT DETECTED; CORONAVIRUS HKU1-RESP PCR NOT DETECTED; CORONAVIRUS NL63-RESP PCR NOT DETECTED; CORONAVIRUS OC43-RESP PCR NOT DETECTED; HUMAN METAPNEUMOVIRUS NOT DETECTED; INFLUENZA A- RESP PCR PANEL NOT DETECTED; INFLUENZA B - RESP PCR PANEL NOT DETECTED; M. PNEUMONIAE- RESP PCR PANEL NOT DETECTED; PARAINFLUENZA VIRUS 1 NOT DETECTED; PARAINFLUENZA VIRUS 2 NOT DETECTED; PARAINFLUENZA VIRUS 3 NOT DETECTED; PARAINFLUENZA VIRUS 4 NOT DETECTED; RHINOVIRUS/ENTEROVIRUS NOT DETECTED; RSV- RESP PCR PANEL NOT DETECTED; SARS-CoV-2 -RESP PCR PANEL NOT DETECTED
--- NOTE | 2022-02-27 10:25 | CT Report ---
PROCEDURE: HEAD WO INDICATIONS: ams TECHNIQUE: Noncontrast 4.5 mm thick angled axial sections acquired from the foramen magnum to the vertex. For r adiation dose reduction, the following was used: automated exposure control, adjustment of mA and/or kV according to patient size. COMPARISON: None. FINDINGS: Image quality: Excellent. CSF spaces: Basal cisterns are patent. No extra-axial fluid collections. Ventricles are normal in size and shape. Brain: No midline shift. No intracranial masses or hemorrhage. Lantigua-white matter interface is norm al. Skull and face: Calvarium and visualized facial bones are intact, without suspicious lesions. Sinuses: Visualized sinuses and mastoids are clear. IMPRESSION: No CT evidence of acute intracranial abnormalities. Reviewed by: Bacilio Thrasher MD on 02/27/2022 10:24 AM [facility] Approved by: Bacilio Thrasher MD on 02/27/2022 10:24 AM [facility] Station ID: [id number]
[2022-02-27 10:32] LABS: BILIRUBIN,URINE NEGATIVE (NEGATIVE); CLARITY,URINE HAZY (CLEAR); GLUCOSE, URINE (UA) 500 mg/dL (NEGATIVE); KETONES,URINE (UA) >=80 mg/dL (NEGATIVE); LEUKOCYTE ESTERASE, URINE NEGATIVE (NEGATIVE); NITRITE,URINE NEGATIVE (NEGATIVE); OCCULT BLOOD,URINE LARGE (NEGATIVE); PH,URINE 6.5 PH (5.0-7.5); PROTEIN,URINE NEGATIVE (NEGATIVE); UROBILINOGEN,URINE 0.2 (NORMAL) E.U./dL (NORMAL)
[2022-02-27] MEDS ORDERED: LORazepam 1 MG TABLET PO STA (10:35)
[2022-02-27 10:40] LABS: AMPHETAMINE SCREEN,URINE POSITIVE (NEGATIVE); BARBITURATE SCREEN,UR NEGATIVE (NEGATIVE); BENZODIAZEPINES SCREEN, URINE NEGATIVE (NEGATIVE); COCAINE SCREEN URINE NEGATIVE (NEGATIVE); METHADONE SCREEN, URINE NEGATIVE (NEGATIVE); METHAMPHETAMINES SCREEN, URINE NEGATIVE (NEGATIVE); OPIATE SCREEN, URINE NEGATIVE (NEGATIVE); OXYCODONE SCREEN, URINE NEGATIVE (NEGATIVE); PROPOXYPHENE SCREEN, URINE NEGATIVE (NEGATIVE); THC CANNABINOID SCREEN, URINE NEGATIVE (NEGATIVE); TRICYCLIC ANTIDEPRESSANT,URINE NEGATIVE (NEGATIVE)
[2022-02-27 10:54] LABS: BACTERIA,URINE Few /HPF (None Seen); CRYSTALS,URINE 11-25 Ca Oxalate /LPF; RBC,URINE TNTC /HPF (0-5); SQUAMOUS EPITHELIAL CELL,UR FEW Squamous (<= Few); WBC,URINE 0-3 /HPF (0-5)
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
[2022-02-27] MEDS: LIOTHYRONINE 5 MCG TABLET PO SCH (20:53)
[2022-02-28] MEDS: LIOTHYRONINE 5 MCG TABLET PO SCH (08:28)
--- NOTE | 2022-02-28 08:40 | ED Physician Documentation ---
ED Addendum - Addendum Addendum: 02/28/22 0840 Patient is boarding in the emergency department pending social work consultation and possible psychiatric placement. She is voluntary. No events overnight. She is currently sleeping.I will check on her later in the morning. 02/28/22 13:01 Patient is feeling better today. She was seen by social work. They have come up with a safety plan and she feels comfortable with plan for discharge home. She never had any suicidality. As she is answering questions appropriately. She was given a number of resources from the psychologist social.She did state that she did feel somewhat better after receiving Ativan yesterday. She understands we can only give a small amounts but I will send a small prescription to [facility] in [place]. Departure - Departure Disposition: Home, Self Care Clinical Impression: Psychiatric symptoms Condition: Stable Instructions: ED Stress React, ED Depression Prescriptions: LORazepam [Ativan] 1 mg PO TID PRN #8 tablet PRN Reason: Anxiety Comments: Please utilize the resources given to you by social work. If it anytime you have any worsening symptoms and have thoughts of hurting yourself or feel unsafe please call 911 and return to the emergency department. I have sent a small prescription of Ativan which may help with some of your symptoms to [facility] in [place]. Please use only as directed.
[2022-02-28] MEDS ORDERED: buPROPion XL 150 MG TABLET PO SCH (09:00)
[2022-02-28] MEDS ORDERED: DULoxetine 30 MG CAPSULE PO SCH (09:00)
[2022-02-28] MEDS ORDERED: lisinopriL 5 MG TABLET PO SCH (09:00)
[2022-02-28 13:36] VITALS: BP 126/61
== END 2022-02-28 13:30 | disposition home or self-care (01) ==
LOC: EDUNIT# → ED 04:55
DX: Z00.8 Encounter for other general examination (principal); R46.89 Other symptoms and signs involving appearance and behavior; Z20.822 Contact with and (suspected) exposure to COVID-19; Z76.4 Other boarder to healthcare facility
CPT/HCPCS: 36415; 70450; 80053; 80306; 80307; 80320; 80329; 81001; 82009; 82803; 83690; 84443; 85025; 87633; 93005; 99281; 99284; A9270; G0425; J8499; Q3014; 81003; 87086

== ENCOUNTER 2022-03-27 17:52 | Inpatient (IN) | payer MEDICAID ==
[2022-03-27] MEDS ORDERED: SODIUM CHLORIDE 0.9% 1,000 ML IV STA ×2 (18:27→20:00)
--- OUTSIDE RECORDS SUMMARY | 2022-03-27 18:34 | EXTERNAL MEDICAL SUMMARY RPT | Continuity of Care Document ---
:1990 Author Organization [facility] Address [address] [place] [address] Phone Care Team Providers Name Role Phone Unavailable Unavailable Unavailable Boogie Aaron-CIsi Unavailable Unavailable Allergies No information. Encounters No information. Functional Status No information. Immunizations No information. Medications date description facility 2022-03-07 00:00 glucagon [facility] 2022-03-08 00:00 glucagon [facility] 2022-03-07 00:00 nirmatrelvir-ritonavir [facility] 2022-03-07 00:00 insulin aspart (niacinamide) [facility] 2022-03-08 00:00 insulin aspart (niacinamide) [facility] 2022-03-07 00:00 lorazepam [facility] 2022-03-08 00:00 lorazepam [facility] 2022-03-07 00:00 dextroamphetamine-amphetamine [facility] 2022-03-08 00:00 dextroamphetamine-amphetamine [facility] 2022-03-07 00:00 lisinopril [facility] 2022-03-08 00:00 lisinopril [facility] 2022-03-07 00:00 bupropion hcl [facility] 2022-03-08 00:00 bupropion hcl [facility] 2022-03-07 00:00 lorazepam [facility] 2022-03-08 00:00 lorazepam [facility] 2022-03-07 00:00 nirmatrelvir-ritonavir [facility] 2022-03-07 00:00 lorazepam [facility] 2022-03-08 00:00 [facility]orazepam [facility] insulin [facility]niacinamide[facility]:00 insulin aspart (niacinamide) [facility]:00 insulin aspart (niacinamide) [facility] 00:00 insulin aspart (niacinamide) [facility] 00:00 nirmatrelvir-ritonavir [facility] 00:00 dextroamphetamine-amphetamine [facility] 2022-03-08 00:00 dextroamphetamine-amphetamine [facility] 2022-03-07 00:00 insulin aspart (niacinamide) [facility] 00:00 insulin aspart (niacinamide) [facility] 2022-03-07 00:00 glucagon [facility] 2022-03-08 00:00 glucagon [facility] 2022-03-07 00:00 liothyronine [facility] 2022-03-08 00:00 liothyronine [facility] 2022-03-07 00:00 liothyronine [facility] 2022-03-08 00:00 liothyronine [facility] 2022-03-07 00:00 lisinopril [facility] 2022-03-08 00:00 lisinopril [facility] 2022-03-07 00:00 glucagon [facility] 2022-03-08 00:00 glucagon [facility] 2022-03-07 00:00 lisinopril [facility] 2022-03-08 00:00 lisinopril [facility] 2022-03-07 00:00 lisinopril [facility] 2022-03-08 00:00 lisinopril [facility] 2022-03-07 00:00 liothyronine [facility] 2022-03-08 00:00 liothyronine [facility] 2022-03-07 00:00 dextroamphetamine-amphetamine [facility] 2022-03-08 00:00 dextroamphetamine-amphetamine [facility] 2022-03-07 00:00 dextroamphetamine-amphetamine [facility] 2022-03-08 00:00 dextroamphetamine-amphetamine [facility] 2022-03-07 00:00 lorazepam [facility] 2022-03-08 00:00 lorazepam [facility] 2022-03-07 00:00 duloxetine [facility] 2022-03-08 00:00 duloxetine [facility] 2022-03-07 00:00 bupropion hcl [facility] 2022-03-08 00:00 bupropion hcl [facility] 2022-03-07 00:00 duloxetine [facility] 2022-03-08 00:00 duloxetine [facility] 2022-03-07 00:00 glucagon [facility] 2022-03-08 00:00 glucagon [facility] 2022-03-07 00:00 dextroamphetamine-amphetamine [facility] 2022-03-08 00:00 dextroamphetamine-amphetamine [facility] 2022-03-07 00:00 dextroamphetamine-amphetamine [facility] 2022-03-08 00:00 dextroamphetamine-amphetamine [facility] 2022-03-07 00:00 duloxetine [facility] 2022-03-08 00:00 duloxetine [facility] 2022-03-07 00:00 dextroamphetamine-amphetamine [facility] 2022-03-08 00:00 dextroamphetamine-amphetamine [facility] 2022-03-07 00:00 bupropion hcl [facility] 2022-03-08 00:00 bupropion hcl [facility] 2022-03-07 00:00 dextroamphetamine-amphetamine [facility] 2022-03-08 00:00 dextroamphetamine-amphetamine [facility] 2022-03-07 00:00 duloxetine [facility] 2022-03-08 00:00 duloxetine [facility] 2022-03-07 00:00 liothyronine [facility] 2022-03-08 00:00 liothyronine [facility] 2022-03-07 00:00 bupropion hcl [facility] 2022-03-08 00:00 bupropion hcl [facility] Problems date description facility 2022-03-07 00:00 Other specified viral infection [facility] 2022-03-07 00:00 Diabetes mellitus without mention [facility] of complication, type I [facility]], not stated as uncontrolled 2022-03-07 00:00 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 1 diabetes [facility] mellitus [facility] 2022-03-07 00:00 Pulmonary congestion [facility] Pr [facility] 2022-03-07 00:00 Other symptoms involving [facility] & respiratory system and chest Ancillary S ervices [facility] 2022-03-07 00:00 Type 1 diabetes mellitus with [facility] hyperglycemia [facility] 2022-03-07 00:00 Other specified symptoms and signs [facility] & involving the circulatory and [facility] respiratory systems 2022-03-07 00:00 COVID-19 [facility] Procedures date description facility 2022-03-07 00:00 Visit Code Hold [facility] 2022-03-07 00:00 COVID, FLU A+B Antigen (In Clinic [facility] Free Test) [facility] Results/Labs No information. Social History date description facility 2022-03-07 00:00 Never smoker [facility] Vital Signs date measurement value units 2022-03-07 00:00 BMI 24.98 kg/m2 2022-03-07 00:00 BP_diastolic 78 mmHg 2022-03-07 00:00 BP_systolic 122 mmHg 2022-03-07 00:00 heart_rate 110 /min 2022-03-07 00:00 height_metric 162.56 cm 2022-03-07 00:00 height_standard 64 in 2022-03-07 00:00 respiration_rate 16 /min 2022-03-07 00:00 temperature_metric 37 C 2022-03-07 00:00 temperature_standard 98.6 F 2022-03-07 00:00 weight_metric 65.77 kg 2022-03-07 00:00 weight_standard 145 lb
--- NOTE | 2022-03-27 18:38 | ED Physician Documentation ---
History of Present Illness - Stated complaint Stated Complaint: AMS/REMOVED INSULIN PUMP - Chief complaint Chief Complaint: Neuro - Additonal information Additional information: History limited due to patient condition and altered mental status. History obtained from chart. Patient was reportedly found with altered mental status at home mom called 911. She does have a known history of type 1 diabetes, depression, PTSD as well as mental health issues. Patient had reportedly removed her insulin pump. On presentation here to the emergency department her initial blood glucose was 132. Further history provided by mom and is that she had a difficult time reaching her today and she would not answer her phone for mom went to the patient's known residence and gained entry. She found her sitting on the chair and altered. Her insulin pump was on the ground. Mom had reported that over the last 24 hours the patient had stated that her insulin pump was acting up. Mom also found that there was a new open protein bar/wrapper in the room and she found some protein bar In her mouth. Mom thinks that she may have had a hypoglycemic event. She does report the patient has a history of anxiety and depression and is on Adderall though she has low suspicion that her daughter would have to attempted self-harm. She is localizing pain only. She is unable to open her eyes. I did get her to grunt to extremely noxious stimuli. She does appear to be protecting her airway Review of Systems Unable to obtain: Unresponsive, AMS PD PAST MEDICAL HISTORY - Past Medical History Cardiovascular: None Respiratory: None Neuro: Headaches Endocrine/Autoimmune: Type 1 diabetes GI: None HOP STRAINER: None : None HEENT: None Psych: Depression, Anxiety Musculoskeletal: None Derm: None - Past Surgical History Past Surgical History: No - Present Medications Home Medications: Ambulatory Orders Medication Instructions Recorded Confirmed Insulin Aspart [NovoLOG] See Protocol SQ TITR 12/22/16 02/27/22 Liothyronine [Cytomel] 5 mcg PO BID 12/22/16 02/27/22 buPROPion [Wellbutrin Xl] 300 mg PO DAILY 12/22/16 02/27/22 Duloxetine HCl [Cymbalta] 60 mg PO DAILY 09/28/20 02/27/22 lisinopriL [Zestril] 5 mg PO DAILY 02/27/22 02/27/22 LORazepam [Ativan] 1 mg PO TID PRN #8 tablet 02/28/22 - Allergies Allergies/Adverse Reactions: Allergies Allergy/AdvReac Type Severity Reaction Status Date / Time No Known Drug Allergies Allergy Verified 02/27/22 05:26 - Social History Does the pt smoke?: No Smoking Status: Never smoker Does the pt drink ETOH?: No Does the pt have substance abuse?: No - Immunizations Immunizations are current?: Yes - POLST Patient has POLST: No PD ED PE EXPANDED - General General: Lethargic, Unresponsive - Cardiac Cardiac: Tachy, Regular Rhythm, Radial strong equal, Pedal strong equal, Cap refill < 2 sec. No: Murmur Present - Respiratory Respiratory: Clear to ausultation stefanie. No: Distress, Labored - Abdomen Abdomen: Normal Bowel sounds. No: Tender to palpation - Derm Derm: Normal color, Warm and dry. No: Rash - Neuro Neuro: Obtunded, Unresponsive - GCS Eye Opening: None Motor: Localizes to Pain Verbal: Incomprehensible Total: 8 Results - Vitals Vitals: Vital Signs - 24 hr 03/27/22 03/27/22 03/27/22 17:54 18:16 18:48 Temperature 37.2 C Heart Rate 101 H 102 H 114 H Respiratory 14 18 32 H Rate Blood Pressure 140/66 H 147/92 H O2 Saturation 100 99 100 03/27/22 03/27/22 03/27/22 21:44 22:00 22:30 Temperature 37.3 C Heart Rate 128 H 112 H 118 H Respiratory 27 H 24 24 Rate Blood Pressure 117/62 112/67 112/67 O2 Saturation 100 99 95 03/27/22 23:00 Temperature Heart Rate 135 H Respiratory 23 Rate Blood Pressure 116/67 O2 Saturation 97 Oxygen O2 Source Room air - Labs Labs: Laboratory Tests 03/27/22 03/27/22 03/27/22 18:57 19:00 19:00 WBC 7.7 RBC 4.56 Hgb 12.9 Hct 40.7 MCV 89.3 MCH 28.3 MCHC 31.7 L RDW 13.0 Plt Count 375 MPV 9.8 Neut # (Auto) 4.9 Lymph # (Auto) 1.9 [place] # (Auto) 0.4 Eos # (Auto) 0.5 Baso # (Auto) 0.0 Absolute Nucleated RBC 0.00 Nucleated RBC % 0.0 Bld Gas Analysis Time Sample Site ABG pH ABG pCO2 ABG pO2 ABG HCO3 ABG Total CO2 ABG O2 Saturation ABG Base Excess Alek Test Room Air Sodium 134 L Potassium 3.9 Chloride 95 L Carbon Dioxide 23 Anion Gap 16.0 H BUN 11 Creatinine 0.8 Estimated GFR (MDRD) 84 L Glucose 263 H Calcium 8.8 Total Bilirubin 1.0 AST 18 ALT 15 Alkaline Phosphatase 65 Ammonia Total Protein 7.7 Albumin 4.1 Globulin 3.6 Albumin/Globulin Ratio 1.1 Lipase 35 TSH Free T4 Urine Color LIGHT YELLOW Urine Clarity CLOUDY Urine pH 5.5 Ur Specific [place] >=1.030 H Urine Protein TRACE Urine Glucose (UA) NEGATIVE Urine Ketones TRACE Urine Occult Blood SMALL H Urine Nitrite NEGATIVE Urine Bilirubin NEGATIVE Urine Urobilinogen 0.2 (NORMAL) Ur Leukocyte Esterase NEGATIVE Urine RBC 6-10 H Urine WBC 4-5 Ur Squamous Epith Cells MANY Squamous H Urine Bacteria Many H Ur Microscopic Review INDICATED Urine Culture Comments NOT INDICATED Urine HCG, Qual NEGATIVE Nasal Adenovirus (PCR) Nasal B. parapertussis DNA (PCR) Nasal Coronavir 229E PCR Nasal Coronavir HKU1 PCR Nasal Coronavir NL63 PCR Nasal Coronavir OC43 PCR Nasal Enterovir/Rhinovir PCR Nasal Influenza B PCR Nasal Influenza A PCR Nasal Parainfluen 1 PCR Nasal Parainfluen 2 PCR Nasal Parainfluen 3 PCR Nasal Parainfluen 4 PCR Nasal RSV (PCR) Nasal B.pertussis DNA PCR Nasal C.pneumoniae (PCR) Lionel Human Metapneumo PCR Nasal M.pneumoniae (PCR) Nasal SARS-CoV-2 (PCR) Salicylates < 6.0 Urine Opiates Screen NEGATIVE Ur Oxycodone Screen NEGATIVE Urine Methadone Screen NEGATIVE Ur Propoxyphene Screen NEGATIVE Acetaminophen < 10 L Ur Barbiturates Screen NEGATIVE Ur Tricyclics Screen NEGATIVE Ur Phencyclidine Scrn NEGATIVE Ur Amphetamine Screen POSITIVE H U Methamphetamines Scrn NEGATIVE U Benzodiazepines Scrn NEGATIVE Urine Cocaine Screen NEGATIVE U Cannabinoids Screen NEGATIVE Ethyl Alcohol 03/27/22 03/27/22 03/27/22 19:00 19:00 19:56 WBC RBC Hgb Hct MCV MCH MCHC RDW Plt Count MPV Neut # (Auto) Lymph # (Auto) [place] # (Auto) Eos # (Auto) Baso # (Auto) Absolute Nucleated RBC Nucleated RBC % Bld Gas Analysis Time Sample Site ABG pH ABG pCO2 ABG pO2 ABG HCO3 ABG Total CO2 ABG O2 Saturation ABG Base Excess Alek Test Room Air Sodium Potassium Chloride Carbon Dioxide Anion Gap BUN Creatinine Estimated GFR (MDRD) Glucose Calcium Total Bilirubin AST ALT Alkaline Phosphatase Ammonia < 10.0 Total Protein Albumin Globulin Albumin/Globulin Ratio Lipase TSH 0.22 L Free T4 Urine Color Urine Clarity Urine pH Ur Specific [place] Urine Protein Urine Glucose (UA) Urine Ketones Urine Occult Blood Urine Nitrite Urine Bilirubin Urine Urobilinogen Ur Leukocyte Esterase Urine RBC Urine WBC Ur Squamous Epith Cells Urine Bacteria Ur Microscopic Review Urine Culture Comments Urine HCG, Qual Nasal Adenovirus (PCR) Nasal B. parapertussis DNA (PCR) Nasal Coronavir 229E PCR Nasal Coronavir HKU1 PCR Nasal Coronavir NL63 PCR Nasal Coronavir OC43 PCR Nasal Enterovir/Rhinovir PCR Nasal Influenza B PCR Nasal Influenza A PCR Nasal Parainfluen 1 PCR Nasal Parainfluen 2 PCR Nasal Parainfluen 3 PCR Nasal Parainfluen 4 PCR Nasal RSV (PCR) Nasal B.pertussis DNA PCR Nasal C.pneumoniae (PCR) Lionel Human Metapneumo PCR Nasal M.pneumoniae (PCR) Nasal SARS-CoV-2 (PCR) Salicylates Urine Opiates Screen Ur Oxycodone Screen Urine Methadone Screen Ur Propoxyphene Screen Acetaminophen Ur Barbiturates Screen Ur Tricyclics Screen Ur Phencyclidine Scrn Ur Amphetamine Screen U Methamphetamines Scrn U Benzodiazepines Scrn Urine Cocaine Screen U Cannabinoids Screen Ethyl Alcohol < 5.0 03/27/22 03/27/22 03/27/22 19:56 21:04 21:45 WBC RBC Hgb Hct MCV MCH MCHC RDW Plt Count MPV Neut # (Auto) Lymph # (Auto) [place] # (Auto) Eos # (Auto) Baso # (Auto) Absolute Nucleated RBC Nucleated RBC % Bld Gas Analysis Time 210 Sample Site RIGHT RADIAL ABG pH 7.39 ABG pCO2 30 L ABG pO2 117 H ABG HCO3 17.9 L ABG Total CO2 18.8 L ABG O2 Saturation 98 ABG Base Excess -5.9 L Alek Test POSITIVE Room Air YES Sodium Potassium Chloride Carbon Dioxide Anion Gap BUN Creatinine Estimated GFR (MDRD) Glucose Calcium Total Bilirubin AST ALT Alkaline Phosphatase Ammonia Total Protein Albumin Globulin Albumin/Globulin Ratio Lipase TSH Free T4 0.87 Urine Color Urine Clarity Urine pH Ur Specific [place] Urine Protein Urine Glucose (UA) Urine Ketones Urine Occult Blood Urine Nitrite Urine Bilirubin Urine Urobilinogen Ur Leukocyte Esterase Urine RBC Urine WBC Ur Squamous Epith Cells Urine Bacteria Ur Microscopic Review Urine Culture Comments Urine HCG, Qual Nasal Adenovirus (PCR) NOT DETECTED Nasal B. parapertussis DNA (PCR) NOT DETECTED Nasal Coronavir 229E PCR NOT DETECTED Nasal Coronavir HKU1 PCR NOT DETECTED Nasal Coronavir NL63 PCR NOT DETECTED Nasal Coronavir OC43 PCR NOT DETECTED Nasal Enterovir/Rhinovir PCR NOT DETECTED Nasal Influenza B PCR NOT DETECTED Nasal Influenza A PCR NOT DETECTED Nasal Parainfluen 1 PCR NOT DETECTED Nasal Parainfluen 2 PCR NOT DETECTED Nasal Parainfluen 3 PCR NOT DETECTED Nasal Parainfluen 4 PCR NOT DETECTED Nasal RSV (PCR) NOT DETECTED Nasal B.pertussis DNA PCR NOT DETECTED Nasal C.pneumoniae (PCR) NOT DETECTED Lionel Human Metapneumo PCR NOT DETECTED Nasal M.pneumoniae (PCR) NOT DETECTED Nasal SARS-CoV-2 (PCR) DETECTED A Salicylates Urine Opiates Screen Ur Oxycodone Screen Urine Methadone Screen Ur Propoxyphene Screen Acetaminophen Ur Barbiturates Screen Ur Tricyclics Screen Ur Phencyclidine Scrn Ur Amphetamine Screen U Methamphetamines Scrn U Benzodiazepines Scrn Urine Cocaine Screen U Cannabinoids Screen Ethyl Alcohol - Rads (name of study) CT head Radiology: Final report received (Limited intracranial study without acute abnormality identified) cxr Radiology: Final report received (no acute cardiopulmonary process) PD Medical Decision Making - ED course Complexity details: reviewed results, re-evaluated patient, considered dif ferential, d/w family ED course: 31-year-old female who is a type I diabetic is brought to the emergency department with altered mental status. History is obtained from mom as patient is nonresponsive. Mom reports that she been trying to contact the patient today but had been unable to reach her via phone or text so she went to her residence where she found the patient sitting in a chair but unarousable. It appears that she had tried to eat a protein bar. Her insulin pump had been removed. Initially On arrival to the emergency department she had a blood sugar of 232. She has received some IV fluids. On presentation she has a [place] Coma Scale of 8 localizing only. She will not open her eyes or verbalize. We did obtain a CT of the head that showed no fin dings to suggest bruising or bleeding within the brain. We also obtained a CBC that showed no worrisome anemia. She has not been hypoglycemic on scence or in the ED. No acidosis to suggest DKA. Her TSH was initially 0.2 but the corrected T4 is normal indicating that her altered mental status not likely due to thyroid disorder. Urine drug screen was positive for amphetamines but the patient does take Adderall. Alcohol salicylates and Tylenol were all essentially unremarkable. Though the patient has been hyperglycemic here in the emergency department, mom believes the patient likely was hypoglycemic and try to eat a protein bar explaining her blood sugars. . Clinically patient presents without leukocytosis or fever. Low suspicion for infection. She localizes strongly both arms and legs so I have low suspicion for acute CVA. History and exam is not consistent with serotonin syndrome. TSH values rule out myexdema coma. History does nto suggest seizure, no sequalea of such (bowerl/bladder incontinence, tongue laceration) though a prolonged post ictal state could present as such While she has been in the emergency department she appears to be starting to become more responsive starting to moan independently. Unfortunately no beds are available at this time for admission so she will continue to board in the emergency department overnight. I have ordered frequent blood glucose checks. Patient will be signed out to my nighttime colleague to follow-up on any acute events overnight. Admission pending bed availability in the a.m. Departure - Departure Disposition: 66 [facility] DC/Xfer Clinical Impression: Altered mental status, unspecified Qualifiers: Altered mental status type: coma Coma depth: Viola coma 3-8 Coma timing: in the field (EMT or ambulance) Qualified Code(s): R40.2431 - [place] coma scale score 3-8, in the field [EMT or ambulance] Type 1 diabetes mellitus Qualifiers: Diabetes mellitus complication status: with other specified complication Qualified Code(s): E10.69 - Type 1 diabetes mellitus with other specified complication
[2022-03-27 19:06] LABS: BASOPHILS % (AUTO) 0.3 %; EOSINOPHILS # (AUTO) 0.5 10^3/uL (0.0-0.7); EOSINOPHILS % (AUTO) 6.4 %; HCT - HEMATOCRIT 40.7 % (37.0-47.0); HGB - HEMOGLOBIN 12.9 g/dL (12.0-16.0); LYMPHOCYTES # (AUTO) 1.9 10^3/uL (1.5-3.5); LYMPHOCYTES % (AUTO) 24.9 %; MEAN CORPUSCULAR HEMOGLOBIN 28.3 pg (27.0-31.0); MEAN CORPUSCULAR HGB CONC 31.7 g/dL (32.0-36.0); MEAN CORPUSCULAR VOLUME 89.3 fL (81.0-99.0); MEAN PLATELET VOLUME 9.8 fL (7.9-10.8); MONOCYTES # (AUTO) 0.4 10^3/uL (0.0-1.0); MONOCYTES % (AUTO) 4.7 %; NEUTROPHILS # (AUTO) 4.9 10^3/uL (1.5-6.6); NEUTROPHILS % (AUTO) 63.4 %; PLT - PLATELET COUNT 375 10^3/uL (130-450); RED BLOOD COUNT 4.56 10^6/uL (4.20-5.40); WHITE BLOOD COUNT 7.7 x10^3/uL (4.8-10.8)
--- NOTE | 2022-03-27 19:08 | CT Report ---
PROCEDURE: HEAD WO INDICATIONS: AMS TECHNIQUE: Noncontrast 4.5 mm thick angled axial sections acquired from the foramen magnum to the vertex. For r adiation dose reduction, the following was used: automated exposure control, adjustment of mA and/or kV according to patient size. COMPARISON: 02/27/2022 FINDINGS: Image quality: Motion artifact is noted. There is artifact associated with the metallic earrings C SF spaces: Basal cisterns are patent. No extra-axial fluid collections. Ventricles are normal in s ize and shape. Brain: No midline shift. No intracranial masses or hemorrhage. [place]ig[place]-white matter interface is norm al. Skull and face: Calvarium and visualized facial bones are intact, without suspicious lesions. Sinuses: Visualized sinuses and mastoids are clear. IMPRESSION: Limited intracranial study, without an acute abnormality identified. Reviewed by: Cameron Vanegas MD on 03/27/2022 6:07 PM [place] Approved by: Cameron Vanegas MD on 03/27/2022 6:07 PM [facility] Station ID: [id number]
[2022-03-27 19:11] LABS: BILIRUBIN,URINE NEGATIVE (NEGATIVE); GLUCOSE, URINE (UA) NEGATIVE (NEGATIVE); KETONES,URINE (UA) TRACE mg/dL (NEGATIVE); LEUKOCYTE ESTERASE, URINE NEGATIVE (NEGATIVE); MUDS CUTOFF CONCENTRATIONS CUTOFF CONC BELOW:; NITRITE,URINE NEGATIVE (NEGATIVE); OCCULT BLOOD,URINE SMALL (NEGATIVE); PH,URINE 5.5 PH (5.0-7.5); PROTEIN,URINE TRACE mg/dL (NEGATIVE); UROBILINOGEN,URINE 0.2 (NORMAL) E.U./dL (NORMAL)
[2022-03-27 19:16] LABS: CLARITY,URINE CLOUDY (CLEAR); HCG UR QUAL NEGATIVE
[2022-03-27 19:18] LABS: BACTERIA,URINE Many /HPF (None Seen); SQUAMOUS EPITHELIAL CELL,UR MANY Squamous (<= Few)
[2022-03-27 19:22] LABS: AMPHETAMINE SCREEN,URINE POSITIVE (NEGATIVE); BARBITURATE SCREEN,UR NEGATIVE (NEGATIVE); BENZODIAZEPINES SCREEN, URINE NEGATIVE (NEGATIVE); COCAINE SCREEN URINE NEGATIVE (NEGATIVE); METHADONE SCREEN, URINE NEGATIVE (NEGATIVE); METHAMPHETAMINES SCREEN, URINE NEGATIVE (NEGATIVE); OPIATE SCREEN, URINE NEGATIVE (NEGATIVE); OXYCODONE SCREEN, URINE NEGATIVE (NEGATIVE); PROPOXYPHENE SCREEN, URINE NEGATIVE (NEGATIVE); THC CANNABINOID SCREEN, URINE NEGATIVE (NEGATIVE); TRICYCLIC ANTIDEPRESSANT,URINE NEGATIVE (NEGATIVE)
[2022-03-27 19:26] LABS: ACETAMINOPHEN < 10 ug/mL (10-30); ALBUMIN 4.1 g/dL (3.2-5.5); ALBUMIN/GLOBULIN RATIO 1.1 (1.0-2.2); ALKALINE PHOSPHATASE 65 IU/L (42-121); ALT ALANINE AMINOTRANSFERASE 15 IU/L (10-60); AST ASPARTATE AMINOTRANSFERASE 18 IU/L (10-42); BUN - BLOOD UREA NITROGEN 11 mg/dL (6-20); CALCIUM 8.8 mg/dL (8.5-10.3); CARBON DIOXIDE - CO2 23 mmol/L (21-32); CHLORIDE 95 mmol/L (101-111); CREATININE 0.8 mg/dL (0.4-1.0); GFR - MDRD 84 (>89); GLUCOSE 263 mg/dL (70-100); LIPASE 35 U/L (22-51); POTASSIUM 3.9 mmol/L (3.5-5.0); SALICYLATE < 6.0 mg/dL; SODIUM 134 mmol/L (135-145); TOTAL PROTEIN 7.7 g/dL (6.7-8.2)
[2022-03-27] MEDS ORDERED: cefTRIAXone 1 GM VIAL IVP STA (19:34)
[2022-03-27] MEDS ORDERED: INSULIN REGULAR HUMAN 100 UNIT/1 ML 10 ML MDV IVP STA ×2 (20:00→20:37)
[2022-03-27 21:07] LABS: ABG BASE EXCESS -5.9 mmol/L (-2.0-3.0); ABG HCO3 17.9 mmol/L (22.0-26.0); ABG OXYGEN SATURATION 98 % (94-98); ABG PCO2 30 mmHg (34-45); ABG PH 7.39 (7.35-7.45); ABG PO2 117 mmHg (80-100); ABG TCO2 18.8 MMOL/L (21.0-29.0); ALLEN TEST POSITIVE
--- NOTE | 2022-03-27 21:07 | XRAY Report ---
PROCEDURE: Chest 1 View X-Ray INDICATIONS: ams TECHNIQUE: One view of the chest was acquired. COMPARISON: None. FINDINGS: Surgical changes and devices: None. Lungs and pleura: No pleural effusions or pneumothorax. Lungs are clear. Mediastinum: Mediastinal contours appear normal. Heart size is normal. Bones and chest wall: No suspicious bony lesions. Overlying soft tissues appear unremarkable. IMPRESSION: 1. No acute cardiopulmonary disease. Reviewed by: Eduardo Urias MD on 03/27/2022 9:05 PM [facility] Approved by: Eduardo Urias MD on 03/27/2022 9:05 PM [facility] Station ID: [id number]
[2022-03-27 22:41] LABS: CORONAVIRUS 229E-RESP PCR NOT DETECTED; CORONAVIRUS HKU1-RESP PCR NOT DETECTED; CORONAVIRUS NL63-RESP PCR NOT DETECTED; CORONAVIRUS OC43-RESP PCR NOT DETECTED
[2022-03-27 22:42] LABS: B. PARAPERTUSSIS- RESP PCR PAN NOT DETECTED; B. PERTUSSIS- RESP PCR PANEL NOT DETECTED; C. PNEUMONIAE- RESP PCR PANEL NOT DETECTED; HUMAN METAPNEUMOVIRUS NOT DETECTED; INFLUENZA A- RESP PCR PANEL NOT DETECTED; INFLUENZA B - RESP PCR PANEL NOT DETECTED; M. PNEUMONIAE- RESP PCR PANEL NOT DETECTED; PARAINFLUENZA VIRUS 1 NOT DETECTED; PARAINFLUENZA VIRUS 2 NOT DETECTED; PARAINFLUENZA VIRUS 3 NOT DETECTED; PARAINFLUENZA VIRUS 4 NOT DETECTED; RHINOVIRUS/ENTEROVIRUS NOT DETECTED; RSV- RESP PCR PANEL NOT DETECTED; SARS-CoV-2 -RESP PCR PANEL DETECTED
[2022-03-27] MEDS ORDERED: ACETAMINOPHEN 650 MG SUPP PR STA (22:57)
[2022-03-27] MEDS ORDERED: LORazepam 2 MG/ML VIAL IVP STA (23:28)
[2022-03-27] MEDS ORDERED: ONDANSETRON 4 MG/2 ML VIAL IVP STA (23:32)
--- NOTE | 2022-03-27 23:35 | ED Physician Documentation ---
ED Addendum - Addendum Addendum: 03/27/22 23:33 patient endorsed to me by MOO Hall. Patient is now conversant with mother in short sentences, stating she has to use the bathroom and feels nauseous. Anxious appearing therefore will provide her home ativan via IV as well as antinausea medication. Plan to continue to monitor. 03/28/22 04:20 Patient still intermittently conversant. Persistent tachycardia. d/w mother - she had been apparently under a lot of stress, arguing with roommate and has note on her forearm concerning for possible overdose attempt. patient takes fluoxetine, bupropion and adderall at home in addition to her insulin for type I DM. suspect possible overdose. d/w poison control - recommend 24h monitoring prior to medical clearance. additional fluids, ativan, repeat ekg ordered. EKG @04:20 sinus tach at 133, normal intervals, no st or t wave changes. 03/28/22 04:25 No inpatient beds available. plan to endorse to incoming daytime ED MD for further care.
[2022-03-28] MEDS ORDERED: INSULIN REGULAR HUMAN 100 UNIT/1 ML 10 ML MDV IVP STA ×4 (00:24→14:17)
[2022-03-28] MEDS ORDERED: INSULIN REGULAR HUMAN 100 UNIT in SODIUM CHLORIDE 0.9% 100ML 99 ML IV STA (00:24)
[2022-03-28] MEDS: SODIUM CHLORIDE 0.9% 1,000 ML IV STA ×2 (00:27→00:30)
[2022-03-28] MEDS ORDERED: SODIUM CHLORIDE 0.9% 1,000 ML IV STA ×3 (04:09→14:13)
[2022-03-28] MEDS ORDERED: LORazepam 2 MG/ML VIAL IVP STA (04:10)
[2022-03-28] MEDS ORDERED: ACETAMINOPHEN 500 MG TABLET PO PRN (04:27)
[2022-03-28] MEDS ORDERED: ONDANSETRON 4 MG/2 ML VIAL IVP PRN ×2 (04:27→15:14)
[2022-03-28] MEDS: SODIUM CHLORIDE 0.9% 1,000 ML IV SCH ×4 (05:01→21:43)
[2022-03-28 05:15] LABS: BASOPHILS % (AUTO) 0.2 %; EOSINOPHILS % (AUTO) 0.1 %; HCT - HEMATOCRIT 36.9 % (37.0-47.0); HGB - HEMOGLOBIN 11.6 g/dL (12.0-16.0); LYMPHOCYTES # (AUTO) 1.8 10^3/uL (1.5-3.5); LYMPHOCYTES % (AUTO) 18.2 %; MEAN CORPUSCULAR HEMOGLOBIN 28.9 pg (27.0-31.0); MEAN CORPUSCULAR HGB CONC 31.4 g/dL (32.0-36.0); MEAN PLATELET VOLUME 10.1 fL (7.9-10.8); MONOCYTES % (AUTO) 10.4 %; NEUTROPHILS # (AUTO) 6.9 10^3/uL (1.5-6.6); NEUTROPHILS % (AUTO) 70.7 %; PLT - PLATELET COUNT 305 10^3/uL (130-450); RED BLOOD COUNT 4.01 10^6/uL (4.20-5.40); RED CELL DISTRIBUTION WIDTH 13.2 % (12.0-15.0); WHITE BLOOD COUNT 9.7 x10^3/uL (4.8-10.8)
[2022-03-28 05:24] LABS: CALCIUM 8.2 mg/dL (8.5-10.3); CREATININE 0.9 mg/dL (0.4-1.0); POTASSIUM 4.5 mmol/L (3.5-5.0)
[2022-03-28] MEDS: PANTOPRAZOLE 40 MG TABLET PO SCH ×2 (06:05→06:33)
[2022-03-28] MEDS ORDERED: PANTOPRAZOLE 40 MG VIAL IVP SCH (07:00)
--- NOTE | 2022-03-28 11:24 | ED Physician Documentation ---
ED Addendum - Addendum Addendum: 03/28/22 11:21 I have personally seen and evaluated patient at the bedside. I reviewed her vital signs over the last 24 hours. She continues to board in the emergency department for altered mental status pending inpatient bed availability. At this time her Glascow coma score is a 9. She will not follow commands but has briefly stated to her mom she had the need to urinate. She has not yet been eating. She remains on every 2 hour insulin checks. The etiology of her altered mental status is not clear. Mom is concerned she May have had a severe hypoglycemic event at home though there is no evidence to suggest this. There is also some writing on her left forearm that could indicate anxiety, stressors and/or possible suicide attempt. She is known to have been recently prescribed fluoxetine. Poison control was contacted yesterday and they recommended 24-hour observation. Her mental status has improved since yesterday though she is certainly not yet at a point to verbalize with us what her care needs are. Objective she remains without hypotension tachycardia persist. We will continue with IV fluids. Due to our blood sugar checks insulin as appropriate. She has not yet able to tolerate a diet. She may need to be seen by social work once more awake. Assessment and plan 31-year-old female known to be a type I diabetic continues to board in the emergency department with altered mental status due to unclear etiology. Will be placed inpatient once a bed is available. She is incidentally COVID-positive. Mom reports that she tested positive for COVID just after [place]. A rapid home test was recently negative. This PCR test may reflect Recent illness though certainly patient has no signs to suggest acute infection or pneumonia
[2022-03-28] MEDS ORDERED: oxyCODONE 5 MG TABLET PO PRN (15:14)
[2022-03-28] MEDS ORDERED: ACETAMINOPHEN 325 MG TABLET PO PRN (15:14)
[2022-03-28] MEDS ORDERED: ONDANSETRON ODT 4 MG TABLET TL PRN (15:14)
[2022-03-28] MEDS ORDERED: SODIUM CHLORIDE FLUSH 0.9% 10 ML SYRINGE IVP PRN (15:14)
--- NOTE | 2022-03-28 15:16 | XRAY Report ---
PROCEDURE: Chest 1 View X-Ray INDICATIONS: Hypotension TECHNIQUE: One view of the chest was acquired. COMPARISON: None. FINDINGS: Surgical changes and devices: None. Lungs and pleura: No pleural effusions or pneumothorax. Lungs are clear. Mediastinum: Mediastinal contours appear normal. Heart size is normal. Bones and chest wall: No suspicious bony lesions. Overlying soft tissues appear unremarkable. IMPRESSION: No acute cardiopulmonary process demonstrated radiographically. Reviewed by: Sandeep Menard MD on 03/28/2022 3:15 PM PST Approved by: Sandeep Menard MD on 03/28/2022 3:15 PM PST Station ID: [id number]
--- NOTE | 2022-03-28 15:29 | ED Physician Documentation ---
ED Addendum - Addendum Addendum: 03/28/22 15:25 While boarding in the emergency department pending inpatient bed availability patient has been persistently tachycardic despite IV fluids. Nursing staff is notified me that she has also begun to have some soft blood pressures in the 90s over 50s. I have ordered blood cultures repeat CBC and CMP. A repeat chest x- ray shows no new findings of pneumonia or obvious infectious etiology. She remains a Glascow of 9 localizing pain and occasionally mumbling or saying 1-2 word sentences. At this time the cause of her altered mental status is unclear though we suspect its an overdose attempt as the patient had recently been in a new living environment and is stressed. Unfortunately we do not have the ability to test for SSRI or SSRI overdose. However the AMS and tachycardia would be consistent with this. My suspicion for an infectious etiology such as a meningitis or encephalitis is rather low. Patient's had no fevers or leukocytosis. The patient is COVID-19 positive on PCR. Patient's mom reports to me that she tested positive for COVID just after [place] and had recently tested negative at home a few days ago. I suspected that the positive status is simply lingering PCR. I do not believe that this is an COVID encephalitis I spoke with Dr. Navarro who will bring the patient into the ICU given her labile blood pressures and persistent tachycardia. Further care and disposition according to the inpatient hospitalist team
[2022-03-28 15:32] LABS: ABG PH 7.23 (7.35-7.45); ABG PO2 107 mmHg (80-100)
[2022-03-28 15:33] LABS: ABG BASE EXCESS -15.8 mmol/L (-2.0-3.0); ABG OXYGEN SATURATION 97 % (94-98)
[2022-03-28 15:35] LABS: ABG PCO2 25 mmHg (34-45); ABG TCO2 10.8 MMOL/L (21.0-29.0)
--- NOTE | 2022-03-28 15:42 | HISTORY & PHYSICAL EXAMINATION ---
Chief Complaint - Chief Complaint Chief Complaint: AMS, and DKA History of Present Illness - Admitted From Admitted From:: chart - History Obtained From Records Reviewed: earlier admission from 12/01/18 History obtained from: EMR - History of Present Illness HPI Comment/Other: History obtained from chart due to AMSRashmi Lizama is a 31 yo female with PMH of type 1 diabetes with insulin pump, mental health issues, depression, PTSD. Found by her mom at her home with AMS Saturday afternoon 03/26/22, 911 called and she was taken to the ED and has been been obtunded largely non verbal state since her arrival. She is being admitted for AMS and DKA, BG 281, Anion GAP 17. She has had multiple ED visits for hypoglycemia. She was most recently in the ED 02/28/22 for mental health issue and possible psychiatric placement. She was discharged with a safety plan, no suicidality a that time. Received a Rx for ativan. On entering the room Alda presents as a sleeping, obese woman who will not open her eyes or engage with me. She withdraws all extremities equally to painful stimuli. Her mother, Gladys, is at bedside and provides all background information. She states Alda has not been ill other then recovering from COVID recently, she has had multiple issues with hypoglycemia. Was on the phone with her Saturday evening and when Alda did not respond Saturday she went to check on her. She reports Alda has been in a bad living situation and this has caused her a lot of stress. History - Past Medical History Cardiovascular: reports: None Respiratory: reports: None Neuro: reports: Headaches Endocrine/Autoimmune: reports: Type 1 diabetes GI: reports: None C[employer]IED [employer]: reports: None : reports: None HEENT: reports: None Psych: reports: Depression, Anxiety Musculoskeletal: reports: None Derm: reports: None MRSA Hx?: No Other Past Medical History: all history was obtained by chart review - Past Surgical History Other past surgical history: no surgical history found on chart review - Family & Social History Family History: Other family: Alive and Well (both parents have HTN) Family History Comment/Other: Her paternal grandfather had type 2 diabetes. Both of her parents have hypertension. Living arrangement: Unknown Social History Notes: She lives on [facility] with her mother. She is not currently employed. She does not smoke. Occasionalyl drinks alcohol. - Substance History Use: Uses substance without health or social issues: NONE - POLST Patient has POLST: No Meds/Allgy - Home Medications Home Medications: Ambulatory Orders Medication Instructions Recorded Confirmed Insulin Aspart [NovoLOG] See Protocol SQ TITR 12/22/16 02/27/22 Liothyronine [Cytomel] 5 mcg PO BID 12/22/16 02/27/22 buPROPion [Wellbutrin Xl] 300 mg PO DAILY 12/22/16 02/27/22 Duloxetine HCl [Cymbalta] 60 mg PO DAILY 09/28/20 02/27/22 lisinopriL [Zestril] 5 mg PO DAILY 02/27/22 02/27/22 LORazepam [Ativan] 1 mg PO TID PRN #8 tablet 02/28/22 - Allergies Allergies/Adverse Reactions: Allergies Allergy/AdvReac Type Severity Reaction Status Date / Time No Known Drug Allergies Allergy Verified 02/27/22 05:26 Review of Systems - All Other Systems All Other Systems: reports: Other (ROS unobtainable to go low GCS) Exam - Vital Signs Vital Signs: Vital Signs x48h Pulse Resp BP Pulse Ox O2 Flow Rate 03/28/22 15:10 124 H 32 H 105/46 L 100 03/28/22 14:59 125 H 20 93/45 L 100 03/28/22 14:11 125 H 18 94/46 L 100 03/28/22 13:46 124 H 18 95/38 L 100 03/28/22 13:11 127 H 18 97/51 L 100 03/28/22 12:45 124 H 18 95/44 L 100 03/28/22 12:03 124 H 20 90/51 L 100 03/28/22 11:30 126 H 94/40 L 100 03/28/22 11:09 128 H 18 100/40 L 100 03/28/22 10:33 127 H 24 110/56 L 100 03/28/22 09:30 121 H 21 97/70 100 2 03/28/22 09:00 119 H 20 100/59 L 100 2 03/28/22 08:00 120 H 10 L 91/52 L 100 2 - Physical Exam General Appearance: positive: Other (obtunded, rolling around on bed appears uncomfortable) Eyes Bilateral: positive: Other (attempts to keep eyes closed, I have to pry the m open, eyes moving laterally back and forth, bilateral pupils mid dilated minimally reactive) ENT: positive: ENT inspection nml Neck: positive: Nml inspection Respiratory: positive: Breath sounds nml, Other (tachypnic) Cardiovascular: positive: Other (S1S2, tachycardia) Peripheral Pulses: positive: 2+ Abdomen: positive: Non-tender (diminisehd bowel sounds) Back: positive: Nml inspection Skin: positive: Warm (damp) Extremities: positive: Non-tender, No pedal edema Neurologic/Psychiatric: positive: Other (obtunded not participating on exam) Conclusion/Plan - Problem List (1) DKA, type 1 Conclusion/Plan: BG 281, Anion GAP 17, K+ 4.5, AMS Plan: IV hydration, K+ replacement, insulin drip Qualifiers: Diabetes mellitus complication detail: without coma Qualified Code(s): E10.10 - Type 1 diabetes mellitus with ketoacidosis without coma (2) Altered mental status, unspecified Conclusion/Plan: Has been altered since admission, Plan: Wide differential Infection/ Sepsis: Temp 38.4 this afternoon, WBC 11.1 this afternoon and Lactic 2.4 blood cultures pending, urine specimen is cloudy, contaminated with squamous cells, meningitis possible, viral syndrome, Medication: nothing found on urine tox screen, possible overdose on her home medication, labs sent, Neuro: CT head negative, no tumor, hydrocephalus, no trauma, no hemorrhage, seizure and post ictal state? possible no seizure witnessed, Metabolic: Thyroid TSH .22, free T4 0.87, No hyponatremia, no hypoglycemia since admission, being treated for DKA, metabolic encephalopathy possible Psychiatric disorder: unknown Qualifiers: Altered mental status type: coma Coma depth: [place] coma 3-8 Coma timing: in the field (EMT or ambulance) Qualified Code(s): R40.2431 - [place] coma scale score 3-8, in the field [EMT or ambulance] (4) OCD (obsessive compulsive disorder) Conclusion/Plan: currently obtunded Plan: resume home meds when she wakes up Qualifiers: Obsessive-compulsive disorder type: unspecified Qualified Code(s): F42.9 - Obsessive-compulsive disorder, unspecified - Lab Results Lab results reviewed: Yes Fish Bones: 03/28/22 16:00 03/28/22 15:47 - Diagnostic Imaging Results Diagnostic Imaging Results: positive: Final report reviewed Diagnostic Imaging Results Comments: 03/27/22 CXR Impression: No acute cardiopulmonary process demonstrated radiographically. 03/27/22 CT head Findings: Image quality: Motion artifact is noted. There is artifact associated with the metallic earrings CSF Spaces: Basal cisterns are patent. No extra-axial fluid collections. Ventricles are normal in size and shape. Brain: No midline shift. No intracranial masses or hemorrage. [place]-white matter interface is normal. Skull and face: Calvarium and visualized facial bones are intact, without suspicious lesions. Sinuses: Visualized sinuses and mastoids are clear. Impression: Limited intracranial study, without an acute abnormality identified. - EKG Results EKG Interpreted Independently: Yes EKG Comparison: No prior EKG Core Measures - Anticipated LOS I expect patient to be DC'd or transferred within 96 hours.: Yes - DVT/VTE - Prophylaxis VTE/DVT Device ordered at admit?: No VTE/DVT Prophylaxis med ordered at admit?: Yes
[2022-03-28 16:05] LABS: ALBUMIN 3.2 g/dL (3.2-5.5); ALBUMIN/GLOBULIN RATIO 1.1 (1.0-2.2); ALKALINE PHOSPHATASE 55 IU/L (42-121); ALT ALANINE AMINOTRANSFERASE 15 IU/L (10-60); AST ASPARTATE AMINOTRANSFERASE 20 IU/L (10-42); BILIRUBIN,TOTAL 1.5 mg/dL (0.2-1.0); BUN - BLOOD UREA NITROGEN 17 mg/dL (6-20); CALCIUM 8.1 mg/dL (8.5-10.3); CHLORIDE 110 mmol/L (101-111); CREATININE 1.1 mg/dL (0.4-1.0); GFR - MDRD 58 (>89); GLUCOSE 281 mg/dL (70-100); LIPASE 22 U/L (22-51); POTASSIUM 4.5 mmol/L (3.5-5.0); SODIUM 138 mmol/L (135-145)
[2022-03-28 16:08] LABS: CARBON DIOXIDE - CO2 11 mmol/L (21-32)
[2022-03-28 16:10] LABS: BASOPHILS % (AUTO) 0.2 %; EOSINOPHILS % (AUTO) 74.7 %; HCT - HEMATOCRIT 37.2 % (37.0-47.0); HGB - HEMOGLOBIN 11.3 g/dL (12.0-16.0); LYMPHOCYTES % (AUTO) 6.4 %; MEAN CORPUSCULAR HEMOGLOBIN 28.7 pg (27.0-31.0); MEAN CORPUSCULAR HGB CONC 30.4 g/dL (32.0-36.0); MEAN CORPUSCULAR VOLUME 94.4 fL (81.0-99.0); MEAN PLATELET VOLUME 10.2 fL (7.9-10.8); MONOCYTES % (AUTO) 10.2 %; NEUTROPHILS % (AUTO) 7.7 %; PLT - PLATELET COUNT 331 10^3/uL (130-450); RED BLOOD COUNT 3.94 10^6/uL (4.20-5.40); RED CELL DISTRIBUTION WIDTH 13.4 % (12.0-15.0); WHITE BLOOD COUNT 11.1 x10^3/uL (4.8-10.8)
[2022-03-28 16:18] LABS: ABNORMAL LYMPHS % (MANUAL) 0 %; BAND NEUTROPHILS % (MANUAL) 0 %
[2022-03-28] MEDS ORDERED: ACETAMINOPHEN 1,000 MG/100 ML 1,000 MG/100 ML BAG IV ONE (16:18)
[2022-03-28 16:45] LABS: KETONES, SERUM (ACETEST) MODERATE (NEGATIVE)
[2022-03-28 17:19] LABS: EOSINOPHILS # (MANUAL) 0.2 10^3/uL (0-0.7); LYMPHOCYTES # (MANUAL) 0.4 10^3/uL (1.5-3.5); LYMPHOCYTES % (MANUAL) 4 %; MONOCYTES # (MANUAL) 0.9 10^3/uL (0.0-1.0); NEUTROPHILS # (MANUAL) 9.5 10^3/uL (1.5-6.6)
[2022-03-28 17:20] LABS: DIFFERENTIAL COMMENT MANUAL DIFFERENTIAL; PLATELET ESTIMATE, MANUAL NORMAL (130-450,000) (NORMAL); PLATELET MORPHOLOGY NORMAL APPEARANCE (NORMAL); RBC MORPHOLOGY (MULTIPLE) NORMAL APPEARANCE (NORMAL)
[2022-03-28] MEDS: DEXTROSE 5%-0.9% NACL 1,000 ML IV SCH (19:30)
[2022-03-28] MEDS: SODIUM CHLORIDE FLUSH 0.9% 10 ML SYRINGE IVP SCH (19:30)
[2022-03-28] MEDS ORDERED: INSULIN REGULAR HUMAN 100 UNIT/1 ML 10 ML MDV ONE (20:09)
[2022-03-28] MEDS: INSULIN REGULAR HUMAN 100 UNIT in SODIUM CHLORIDE 0.9% 100ML 99 ML IV SCH (20:40)
[2022-03-28] MEDS ORDERED: ACETAMINOPHEN 1,000 MG/100 ML 1,000 MG/100 ML BAG IV PRN (21:14)
[2022-03-28] MEDS: LORazepam 2 MG/ML VIAL IVP PRN ×2 (21:55→23:38)
[2022-03-28 22:36] LABS: HCG UR QUAL NEGATIVE
[2022-03-28] MEDS ORDERED: SODIUM CHLORIDE 0.9% 1,000 ML IV ONE (22:59)
[2022-03-29 00:39] LABS: CALCIUM, IONIZED 1.19 mmol/L (1.15-1.33); VBG PH 7.217 (7.31-7.41)
[2022-03-29 00:48] LABS: CALCIUM 8.1 mg/dL (8.5-10.3); CREATININE 1.3 mg/dL (0.4-1.0); MAGNESIUM 1.6 mg/dL (1.7-2.8); PHOSPHORUS 2.3 mg/dL (2.5-4.6); POTASSIUM 3.4 mmol/L (3.5-5.0)
[2022-03-29] MEDS: SODIUM CHLORIDE FLUSH 0.9% 10 ML SYRINGE IVP SCH ×3 (00:59→17:44)
[2022-03-29] MEDS: DEXTROSE 5%-0.9% NACL 1,000 ML IV SCH ×3 (01:03→17:45)
[2022-03-29] MEDS: SODIUM CHLORIDE 0.9% 1,000 ML IV SCH ×3 (01:24→09:18)
[2022-03-29] MEDS ORDERED: MAGNESIUM SULFATE 2 GRAM 2 GM/50 ML BAG IV ONE ×2 (01:26→16:58)
[2022-03-29] MEDS ORDERED: INSULIN REGULAR HUMAN 100 UNIT/1 ML 10 ML MDV ONE (02:23)
[2022-03-29] MEDS: POTASSIUM CHLOR 10 MEQ/100 ML 10 MEQ/100 ML BAG IV SCH ×4 (02:28→06:19)
[2022-03-29] MEDS: LORazepam 2 MG/ML VIAL IVP PRN (02:40)
[2022-03-29] MEDS: INSULIN REGULAR HUMAN 100 UNIT in SODIUM CHLORIDE 0.9% 100ML 99 ML IV SCH ×2 (04:11→22:49)
[2022-03-29] MEDS ORDERED: DEXTROSE 50% ABBOJECT 25 GM/50 ML SYRINGE ONE (04:30)
[2022-03-29] MEDS ORDERED: DEXTROSE 50% ABBOJECT 25 GM/50 ML SYRINGE IVP ONE (04:33)
[2022-03-29 05:18] LABS: BASOPHILS % (AUTO) 0.2 %; HGB - HEMOGLOBIN 9.3 g/dL (12.0-16.0); LYMPHOCYTES % (AUTO) 27.8 %; MEAN CORPUSCULAR HEMOGLOBIN 28.7 pg (27.0-31.0); MEAN CORPUSCULAR VOLUME 92.6 fL (81.0-99.0); MEAN PLATELET VOLUME 10.1 fL (7.9-10.8); MONOCYTES % (AUTO) 19.4 %; NEUTROPHILS % (AUTO) 52.2 %; PLT - PLATELET COUNT 261 10^3/uL (130-450); RED BLOOD COUNT 3.24 10^6/uL (4.20-5.40); RED CELL DISTRIBUTION WIDTH 13.8 % (12.0-15.0); WHITE BLOOD COUNT 13.9 x10^3/uL (4.8-10.8)
[2022-03-29 05:20] LABS: VBG BASE EXCESS -8.7 mmol/L (-2 - +2); VBG HCO3 17.8 mmol/L (23-28); VBG OXYGEN SATURATION 89.5 % (60-80); VBG PCO2 40.6 mmHg (41-51); VBG PH 7.26 (7.31-7.41); VBG PO2 58.3 mmHg (25-47); VBG TOTAL CO2 19.1 mmol/L (24-29)
[2022-03-29 05:26] LABS: ABNORMAL LYMPHS % (MANUAL) 0 %; BAND NEUTROPHILS % (MANUAL) 0 %
[2022-03-29 05:31] LABS: BUN - BLOOD UREA NITROGEN 19 mg/dL (6-20); CALCIUM 8.1 mg/dL (8.5-10.3); CARBON DIOXIDE - CO2 19 mmol/L (21-32); CHLORIDE 115 mmol/L (101-111); CREATININE 1.1 mg/dL (0.4-1.0); GFR - MDRD 58 (>89); GLUCOSE 126 mg/dL (70-100); MAGNESIUM 2.2 mg/dL (1.7-2.8); POTASSIUM 3.5 mmol/L (3.5-5.0); SODIUM 140 mmol/L (135-145)
[2022-03-29 05:35] LABS: KETONES, SERUM (ACETEST) SMALL (NEGATIVE)
[2022-03-29 05:40] LABS: LYMPHOCYTES # (MANUAL) 4.2 10^3/uL (1.5-3.5); LYMPHOCYTES % (MANUAL) 30 %; MONOCYTES # (MANUAL) 1.4 10^3/uL (0.0-1.0); NEUTROPHILS # (MANUAL) 8.3 10^3/uL (1.5-6.6); PLATELET ESTIMATE, MANUAL NORMAL (130-450,000) (NORMAL); PLATELET MORPHOLOGY NORMAL APPEARANCE (NORMAL); RBC MORPHOLOGY (MULTIPLE) NORMAL APPEARANCE (NORMAL); WBC MORPHOLOGY (MULTIPLE) NORMAL APPEARANCE (NORMAL)
[2022-03-29 05:41] LABS: DIFFERENTIAL COMMENT MANUAL DIFFERENTIAL
[2022-03-29] MEDS: PANTOPRAZOLE 40 MG TABLET PO SCH ×2 (06:19)
--- NOTE | 2022-03-29 07:25 | PROVIDER PROGRESS NOTE ---
<Zack Castro - Last Filed: 03/29/22 12:11> Subjective - Prog Note Date Prog Note Date: 03/29/22 Prog Note Time: 07:23 - Subjective Pt reports feeling: No change Subjective: History obtained from chart due to AMS. Alda is a 31 yo female with PMH of type 1 diabetes with insulin pump, mental health issues, depression, PTSD. Today I encounter Alda lying in bed, her eyes are closed, she stirs to voice but does not follow commands. Withdraws x4 extremities, negative Krenig sign. Eyes are mid dilation reactive to light, must be pried open. Her mother is at bedside. Current Medications - Current Medications Current Medications: Acetaminophen (Acetaminophen 500 Mg Tablet) 1,000 mg PO Q6H PRN PRN Reason: Mild Pain Or Fever>38c(100.4f) Acetaminophen (Acetaminophen 325 Mg Tablet) 650 mg PO Q4HR PRN PRN Reason: Pain 1 to 4, or Fever Enoxaparin Sodium (Enoxaparin 40 Mg/0.4 Ml Syringe) 40 mg SUBQ DAILY [facility] Sodium Chloride (Normal Saline 0.9%) 1,000 mls @ 125 mls/hr IV .Q8H [place] Last Admin: 03/29/22 02:50 Dose: Not Given Sodium Chloride (Normal Saline 0.9%) 1,000 mls @ 125 mls/hr IV .Q8H [place] Last Admin: 03/29/22 01:24 Dose: Not Given Dextrose/Sodium Chloride (D5ns) 1,000 mls @ 125 mls/hr IV .Q8H [place] Last Admin: 03/29/22 01:03 Dose: 125 mls/hr Insulin Human Regular 100 unit (/ Sodium Chloride) 100 mls @ 7 mls/hr IV .[id number] [place]; Protocol Last Titration: 03/29/22 04:12 Dose: 0 unit/hr, 0 mls/hr Acetaminophen (Acetaminophen) 1,000 mg in 100 mls @ 400 mls/hr IV Q6HR PRN PRN Reason: PAIN Last Infusion: 03/28/22 22:05 Dose: Infused Lorazepam (Lorazepam 2 Mg/Ml Vial) 1 mg IVP Q2H PRN PRN Reason: Agitation Last Admin: 03/29/22 02:40 Dose: 1 mg Ondansetron HCl (Ondansetron 4 Mg/2 Ml Vial) 4 mg IVP Q6HR PRN PRN Reason: Nausea / Vomiting Ondansetron HCl (Ondansetron Odt 4 Mg Tablet) 4 mg TL Q6HR PRN PRN Reason: Nausea / Vomiting Ondansetron HCl (Ondansetron 4 Mg/2 Ml Vial) 4 mg IVP Q6HR PRN PRN Reason: Nausea / Vomiting Oxycodone HCl (Oxycodone 5 Mg Tablet) 5 mg PO Q4HR PRN PRN Reason: Pain 5 to 7 Pantoprazole Sodium (Pantoprazole 40 Mg Tablet) 40 mg PO QDAC [facility] Last Admin: 03/29/22 06:19 Dose: Not Given Pantoprazole Sodium (Pantoprazole 40 Mg Tablet) 40 mg PO QDAC [facility] Last Admin: 03/29/22 06:19 Dose: Not Given Sodium Chloride (Sodium Chloride Flush 0.9% 10 Ml Syringe) 10 ml IVP 0100,0900,1700 [facility] Last Admin: 03/29/22 00:59 Dose: 10 ml Sodium Chloride (Sodium Chloride Flush 0.9% 10 Ml Syringe) 10 ml IVP PRN PRN PRN Reason: NEEDED PER PROVIDER ORDERS Last Admin: 03/28/22 23:38 Dose: 10 ml Objective - Vital Signs/Intake & Output Vital Signs: Vital Signs x48h Temp Pulse Resp BP Pulse Ox 03/29/22 07:00 98 16 111/67 99 03/29/22 06:00 98 17 106/72 99 03/29/22 05:00 98 17 110/69 98 03/29/22 04:00 36.7 C 99 19 103/61 99 03/29/22 03:00 102 H 17 97/59 L 100 03/29/22 02:30 108 H 13 110/51 L 95 03/29/22 02:00 109 H 21 108/48 L 99 03/29/22 01:00 114 H 21 100/47 L 100 03/29/22 00:10 37.3 C 03/29/22 00:00 119 H 25 H 104/49 L 98 Intake & Output: Intake & Output 03/26/22 03/27/22 03/28/22 03/29/22 23:59 23:59 23:59 23:59 Intake Total 1999 6167.083 1963.925 Output Total 1646 257 Balance 1999 4521.083 1706.925 - Objective General Appearance: positive: Mild distress (lying in bed, obtunded does not follow commands or open eyes to painful stimuli) Eyes Bilateral: positive: PERRL (must be pried open to examine), Other ENT: positive: No signs of dehydration Neck: positive: Nml inspection, Other (negative Kernig's sign) Respiratory: positive: Chest non-tender, No respiratory distress, Breath sounds nml Cardiovascular: positive: Regular rate & rhythm Peripheral Pulses: 1+ Dorsalis pedis (R), 1+ Dorsalis pedis (L), 2+ Radial (R), 2+ Radial (L) Abdomen: positive: Non-tender, Nml bowel sounds Back: positive: Nml inspection Skin: positive: Color nml, No rash, Warm Extremities: positive: Non-tender, Nml appearance Neurologic/Psychiatric: positive: Other (obtunded not participating in exam) - Lab Results Fish Bones: 03/29/22 04:38 03/29/22 09:33 Other Labs: Lab Results x24hrs 03/29/22 03/29/22 03/29/22 Range/Units 04:38 04:38 04:38 WBC 13.9 H (4.8-10.8) x10^3/uL RBC 3.24 L (4.20-5.40) 10^6/uL Hgb 9.3 L (12.0-16.0) g/dL Hct 30.0 L (37.0-47.0) % MCV 92.6 (81.0-99.0) fL MCH 28.7 (27.0-31.0) pg MCHC 31.0 L (32.0-36.0) g/dL RDW 13.8 (12.0-15.0) % Plt Count 261 (130-450) 10^3/uL MPV 10.1 (7.9-10.8) fL Neut # (Auto) Not Reportable Lymph # (Auto) Not Reportable Hinds # (Auto) Not Reportable Eos # (Auto) Not Reportable Baso # (Auto) Not Reportable Absolute Nucleated RBC Not Reportable Total Counted 100 Band Neuts % (Manual) 0 (0 - 10) % Abnorm Lymph % (Manual) 0 % Nucleated RBC % Not Reportable Neutrophils # (Manual) 8.3 H (1.5-6.6) 10^3/uL Lymphocytes # (Manual) 4.2 H (1.5-3.5) 10^3/uL Monocytes # (Manual) 1.4 H (0.0-1.0) 10^3/uL Eosinophils # (Manual) 0.0 (0-0.7) 10^3/uL Basophils # (Manual) 0.0 (0-0.1) 10^3/uL Differential Comment MANUAL DIFFERENTIAL WBC Morphology NORMAL APPEARANCE (NORMAL) Platelet Estimate NORMAL (130-450,000) (NORMAL) Platelet Morphology NORMAL APPEARANCE (NORMAL) RBC Morph Micro Appear NORMAL APPEARANCE (NORMAL) Bld Gas Analysis Time Sample Site ABG pH (7.35-7.45) ABG pCO2 (34-45) mmHg ABG pO2 (80-100) mmHg ABG HCO3 (22.0-26.0) mmol/L ABG Total CO2 (21.0-29.0) MMOL/L ABG O2 Saturation (94-98) % ABG Base Excess (-2.0-3.0) mmol/L Alek Test VBG pH 7.260 L (7.31-7.41) VBG pCO2 40.6 L (41-51) mmHg VBG pO2 58.3 H (25-47) mmHg VBG HCO3 17.8 L (23-28) mmol/L VBG Total CO2 19.1 L (24-29) mmol/L VBG O2 Saturation 89.5 H (60-80) % VBG Base Excess -8.7 L (-2 - +2) mmol/L Ionized Calcium (1.15-1.33) mmol/L O2 Delivery Device Sodium 140 (135-145) mmol/L Potassium 3.5 (3.5-5.0) mmol/L Chloride 115 H (101-111) mmol/L Carbon Dioxide 19 L (21-32) mmol/L Anion Gap 6.0 (6-13) BUN 19 (6-20) mg/dL Creatinine 1.1 H (0.4-1.0) mg/dL Estimated GFR (MDRD) 58 L (>89) Glucose 126 H (70-100) mg/dL Lactic Acid (0.5-2.2) mmol/L Calcium 8.1 L (8.5-10.3) mg/dL Phosphorus (2.5-4.6) mg/dL Magnesium 2.2 (1.7-2.8) mg/dL Total Bilirubin (0.2-1.0) mg/dL AST (10-42) IU/L ALT (10-60) IU/L Alkaline Phosphatase (42-121) IU/L Total Creatine Kinase (22-269) IU/L Troponin I High Sens (2.3-14.8) ng/L Total Protein (6.7-8.2) g/dL Albumin (3.2-5.5) g/dL Globulin (2.1-4.2) g/dL Albumin/Globulin Ratio (1.0-2.2) Lipase (22-51) U/L Free T3 pg/mL (2.5-3.9) pg/mL Urine HCG, Qual Nasal Screen MRSA (PCR) (NEGATIVE) Serum Ketones SMALL H (NEGATIVE) 03/29/22 03/29/22 03/28/22 Range/Units 00:27 00:27 20:00 WBC (4.8-10.8) x10^3/uL RBC (4.20-5.40) 10^6/uL Hgb (12.0-16.0) g/dL Hct (37.0-47.0) % MCV (81.0-99.0) fL MCH (27.0-31.0) pg MCHC (32.0-36.0) g/dL RDW (12.0-15.0) % Plt Count (130-450) 10^3/uL MPV (7.9-10.8) fL Neut # (Auto) Lymph # (Auto) Hinds # (Auto) Eos # (Auto) Baso # (Auto) Absolute Nucleated RBC Total Counted Band Neuts % (Manual) (0 - 10) % Abnorm Lymph % (Manual) % Nucleated RBC % Neutrophils # (Manual) (1.5-6.6) 10^3/uL Lymphocytes # (Manual) (1.5-3.5) 10^3/uL Monocytes # (Manual) (0.0-1.0) 10^3/uL Eosinophils # (Manual) (0-0.7) 10^3/uL Basophils # (Manual) (0-0.1) 10^3/uL Differential Comment WBC Morphology (NORMAL) Platelet Estimate (NORMAL) Platelet Morphology (NORMAL) RBC Morph Micro Appear (NORMAL) Bld Gas Analysis Time Sample Site ABG pH (7.35-7.45) ABG pCO2 (34-45) mmHg ABG pO2 (80-100) mmHg ABG HCO3 (22.0-26.0) mmol/L ABG Total CO2 (21.0-29.0) MMOL/L ABG O2 Saturation (94-98) % ABG Base Excess (-2.0-3.0) mmol/L Alek Test VBG pH 7.217 L (7.31-7.41) VBG pCO2 (41-51) mmHg VBG pO2 (25-47) mmHg VBG HCO3 (23-28) mmol/L VBG Total CO2 (24-29) mmol/L VBG O2 Saturation (60-80) % VBG Base Excess (-2 - +2) mmol/L Ionized Calcium 1.19 (1.15-1.33) mmol/L O2 Delivery Device Sodium 140 (135-145) mmol/L Potassium 3.4 L (3.5-5.0) mmol/L Chloride 113 H (101-111) mmol/L Carbon Dioxide 15 L (21-32) mmol/L Anion Gap 12.0 (6-13) BUN 20 (6-20) mg/dL Creatinine 1.3 H (0.4-1.0) mg/dL Estimated GFR (MDRD) 48 L (>89) Glucose 210 H (70-100) mg/dL Lactic Acid (0.5-2.2) mmol/L Calcium 8.1 L (8.5-10.3) mg/dL Phosphorus 2.3 L (2.5-4.6) mg/dL Magnesium 1.6 L (1.7-2.8) mg/dL Total Bilirubin (0.2-1.0) mg/dL AST (10-42) IU/L ALT (10-60) IU/L Alkaline Phosphatase (42-121) IU/L Total Creatine Kinase (22-269) IU/L Troponin I High Sens (2.3-14.8) ng/L Total Protein (6.7-8.2) g/dL Albumin (3.2-5.5) g/dL Globulin (2.1-4.2) g/dL Albumin/Globulin Ratio (1.0-2.2) Lipase (22-51) U/L Free T3 pg/mL (2.5-3.9) pg/mL Urine HCG, Qual Nasal Screen MRSA (PCR) NEGATIVE (NEGATIVE) Serum Ketones (NEGATIVE) 03/28/22 03/28/22 03/28/22 Range/Units 20:00 16:00 16:00 WBC 11.1 H (4.8-10.8) x10^3/uL RBC 3.94 L (4.20-5.40) 10^6/uL Hgb 11.3 L (12.0-16.0) g/dL Hct 37.2 (37.0-47.0) % MCV 94.4 (81.0-99.0) fL MCH 28.7 (27.0-31.0) pg MCHC 30.4 L (32.0-36.0) g/dL RDW 13.4 (12.0-15.0) % Plt Count 331 (130-450) 10^3/uL MPV 10.2 (7.9-10.8) fL Neut # (Auto) Not Reportable Lymph # (Auto) Not Reportable Hinds # (Auto) Not Reportable Eos # (Auto) Not Reportable Baso # (Auto) Not Reportable Absolute Nucleated RBC Not Reportable Total Counted 100 Band Neuts % (Manual) 0 (0 - 10) % Abnorm Lymph % (Manual) 0 % Nucleated RBC % Not Reportable Neutrophils # (Manual) 9.5 H (1.5-6.6) 10^3/uL Lymphocytes # (Manual) 0.4 L (1.5-3.5) 10^3/uL Monocytes # (Manual) 0.9 (0.0-1.0) 10^3/uL Eosinophils # (Manual) 0.2 (0-0.7) 10^3/uL Basophils # (Manual) 0.0 (0-0.1) 10^3/uL Differential Comment MANUAL DIFFERENTIAL WBC Morphology (NORMAL) Platelet Estimate NORMAL (130-450,000) (NORMAL) Platelet Morphology NORMAL APPEARANCE (NORMAL) RBC Morph Micro Appear NORMAL APPEARANCE (NORMAL) Bld Gas Analysis Time Sample Site ABG pH (7.35-7.45) ABG pCO2 (34-45) mmHg ABG pO2 (80-100) mmHg ABG HCO3 (22.0-26.0) mmol/L ABG Total CO2 (21.0-29.0) MMOL/L ABG O2 Saturation (94-98) % ABG Base Excess (-2.0-3.0) mmol/L Alek Test VBG pH (7.31-7.41) VBG pCO2 (41-51) mmHg VBG pO2 (25-47) mmHg VBG HCO3 (23-28) mmol/L VBG Total CO2 (24-29) mmol/L VBG O2 Saturation (60-80) % VBG Base Excess (-2 - +2) mmol/L Ionized Calcium (1.15-1.33) mmol/L O2 Delivery Device Sodium (135-145) mmol/L Potassium (3.5-5.0) mmol/L Chloride (101-111) mmol/L Carbon Dioxide (21-32) mmol/L Anion Gap (6-13) BUN (6-20) mg/dL Creatinine (0.4-1.0) mg/dL Estimated GFR (MDRD) (>89) Glucose (70-100) mg/dL Lactic Acid (0.5-2.2) mmol/L Calcium (8.5-10.3) mg/dL Phosphorus (2.5-4.6) mg/dL Magnesium (1.7-2.8) mg/dL Total Bilirubin (0.2-1.0) mg/dL AST (10-42) IU/L ALT (10-60) IU/L Alkaline Phosphatase (42-121) IU/L Total Creatine Kinase 204 (22-269) IU/L Troponin I High Sens (2.3-14.8) ng/L Total Protein (6.7-8.2) g/dL Albumin (3.2-5.5) g/dL Globulin (2.1-4.2) g/dL Albumin/Globulin Ratio (1.0-2.2) Lipase (22-51) U/L Free T3 pg/mL (2.5-3.9) pg/mL Urine HCG, Qual NEGATIVE Nasal Screen MRSA (PCR) (NEGATIVE) Serum Ketones (NEGATIVE) 03/28/22 03/28/22 03/28/22 Range/Units 16:00 16:00 16:00 WBC (4.8-10.8) x10^3/uL RBC (4.20-5.40) 10^6/uL Hgb (12.0-16.0) g/dL Hct (37.0-47.0) % MCV (81.0-99.0) fL MCH (27.0-31.0) pg MCHC (32.0-36.0) g/dL RDW (12.0-15.0) % Plt Count (130-450) 10^3/uL MPV (7.9-10.8) fL Neut # (Auto) Lymph # (Auto) Hinds # (Auto) Eos # (Auto) Baso # (Auto) Absolute Nucleated RBC Total Counted Band Neuts % (Manual) (0 - 10) % Abnorm Lymph % (Manual) % Nucleated RBC % Neutrophils # (Manual) (1.5-6.6) 10^3/uL Lymphocytes # (Manual) (1.5-3.5) 10^3/uL Monocytes # (Manual) (0.0-1.0) 10^3/uL Eosinophils # (Manual) (0-0.7) 10^3/uL Basophils # (Manual) (0-0.1) 10^3/uL Differential Comment WBC Morphology (NORMAL) Platelet Estimate (NORMAL) Platelet Morphology (NORMAL) RBC Morph Micro Appear (NORMAL) Bld Gas Analysis Time Sample Site ABG pH (7.35-7.45) ABG pCO2 (34-45) mmHg ABG pO2 (80-100) mmHg ABG HCO3 (22.0-26.0) mmol/L ABG Total CO2 (21.0-29.0) MMOL/L ABG O2 Saturation (94-98) % ABG Base Excess (-2.0-3.0) mmol/L Alek Test VBG pH (7.31-7.41) VBG pCO2 (41-51) mmHg VBG pO2 (25-47) mmHg VBG HCO3 (23-28) mmol/L VBG Total CO2 (24-29) mmol/L VBG O2 Saturation (60-80) % VBG Base Excess (-2 - +2) mmol/L Ionized Calcium (1.15-1.33) mmol/L O2 Delivery Device Sodium (135-145) mmol/L Potassium (3.5-5.0) mmol/L Chloride (101-111) mmol/L Carbon Dioxide (21-32) mmol/L Anion Gap (6-13) BUN (6-20) mg/dL Creatinine (0.4-1.0) mg/dL Estimated GFR (MDRD) (>89) Glucose (70-100) mg/dL Lactic Acid 2.4 H (0.5-2.2) mmol/L Calcium (8.5-10.3) mg/dL Phosphorus (2.5-4.6) mg/dL Magnesium (1.7-2.8) mg/dL Total Bilirubin (0.2-1.0) mg/dL AST (10-42) IU/L ALT (10-60) IU/L Alkaline Phosphatase (42-121) IU/L Total Creatine Kinase (22-269) IU/L Troponin I High Sens 28.3 H* (2.3-14.8) ng/L Total Protein (6.7-8.2) g/dL Albumin (3.2-5.5) g/dL Globulin (2.1-4.2) g/dL Albumin/Globulin Ratio (1.0-2.2) Lipase (22-51) U/L Free T3 pg/mL 2.25 L (2.5-3.9) pg/mL Urine HCG, Qual Nasal Screen MRSA (PCR) (NEGATIVE) Serum Ketones (NEGATIVE) 03/28/22 03/28/22 Range/Units 15:47 15:15 WBC (4.8-10.8) x10^3/uL RBC (4.20-5.40) 10^6/uL Hgb (12.0-16.0) g/dL Hct (37.0-47.0) % MCV (81.0-99.0) fL MCH (27.0-31.0) pg MCHC (32.0-36.0) g/dL RDW (12.0-15.0) % Plt Count (130-450) 10^3/uL MPV (7.9-10.8) fL Neut # (Auto) Lymph # (Auto) Hinds # (Auto) Eos # (Auto) Baso # (Auto) Absolute Nucleated RBC Total Counted Band Neuts % (Manual) (0 - 10) % Abnorm Lymph % (Manual) % Nucleated RBC % Neutrophils # (Manual) (1.5-6.6) 10^3/uL Lymphocytes # (Manual) (1.5-3.5) 10^3/uL Monocytes # (Manual) (0.0-1.0) 10^3/uL Eosinophils # (Manual) (0-0.7) 10^3/uL Basophils # (Manual) (0-0.1) 10^3/uL Differential Comment WBC Morphology (NORMAL) Platelet Estimate (NORMAL) Platelet Morphology (NORMAL) RBC Morph Micro Appear (NORMAL) Bld Gas Analysis Time 1528 Sample Site RIGHT BRACHIAL ABG pH 7.23 L (7.35-7.45) ABG pCO2 25 L* (34-45) mmHg ABG pO2 107 H (80-100) mmHg ABG HCO3 10.0 L (22.0-26.0) mmol/L ABG Total CO2 10.8 L* (21.0-29.0) MMOL/L ABG O2 Saturation 97 (94-98) % ABG Base Excess -15.8 L (-2.0-3.0) mmol/L Aelk Test NOT APPLICABLE VBG pH (7.31-7.41) VBG pCO2 (41-51) mmHg VBG pO2 (25-47) mmHg VBG HCO3 (23-28) mmol/L VBG Total CO2 (24-29) mmol/L VBG O2 Saturation (60-80) % VBG Base Excess (-2 - +2) mmol/L Ionized Calcium (1.15-1.33) mmol/L O2 Delivery Device ROOM AIR Sodium 138 (135-145) mmol/L Potassium 4.5 (3.5-5.0) mmol/L Chloride 110 (101-111) mmol/L Carbon Dioxide 11 L* (21-32) mmol/L Anion Gap 17.0 H (6-13) BUN 17 (6-20) mg/dL Creatinine 1.1 H (0.4-1.0) mg/dL Estimated GFR (MDRD) 58 L (>89) Glucose 281 H (70-100) mg/dL Lactic Acid (0.5-2.2) mmol/L Calcium 8.1 L (8.5-10.3) mg/dL Phosphorus (2.5-4.6) mg/dL Magnesium (1.7-2.8) mg/dL Total Bilirubin 1.5 H (0.2-1.0) mg/dL AST 20 (10-42) IU/L ALT 15 (10-60) IU/L Alkaline Phosphatase 55 (42-121) IU/L Total Creatine Kinase (22-269) IU/L Troponin I High Sens (2.3-14.8) ng/L Total Protein 6.0 L (6.7-8.2) g/dL Albumin 3.2 (3.2-5.5) g/dL Globulin 2.8 (2.1-4.2) g/dL Albumin/Globulin Ratio 1.1 (1.0-2.2) Lipase 22 (22-51) U/L Free T3 pg/mL (2.5-3.9) pg/mL Urine HCG, Qual Nasal Screen MRSA (PCR) (NEGATIVE) Serum Ketones MODERATE H (NEGATIVE) - Diagnostic Imaging Diagnostic Imaging Results: positive: Final report reviewed Diagnostic Imaging Comments: 03/27/22 CXR Impression: No acute cardiopulmonary process demonstrated radiographically. 03/27/22 CT head Findings: Image quality: Motion artifact is noted. There is artifact associated with the metallic earrings CSF Spaces: Basal cisterns are patent. No extra-axial fluid collections. Ventricles are normal in size and shape. Brain: No midline shift. No intracranial masses or hemorrage. [place]-white matter interface is normal. Skull and face: Calvarium and visualized facial bones are intact, without suspicious lesions. Sinuses: Visualized sinuses and mastoids are clear. Impression: Limited intracranial study, without an acute abnormality identified. ABX Reporting Has patient been on IV antibiotics over the past 48 hours?: No Assessment/Plan - Problem List (1) DKA, type 1 Impression: BG 126, Anion GAP 6, K+ 4.3, AMS Plan: IV hydration, K+ replacement, insulin drip off not receiving sub q Qualifiers: Diabetes mellitus complication detail: without coma Qualified Code(s): E10.10 - Type 1 diabetes mellitus with ketoacidosis without coma (2) Altered mental status, unspecified Impression: Has been altered since admission, Plan: Wide differential Infection/ Sepsis: No temperature today, WBC 13.9 today, blood cultures pending, urine specimen is cloudy, contaminated with squamous cells, meningitis possible, viral syndrome, Medication: nothing found on urine tox screen, possible overdose on her home medication, EKG today normal QT, NSR HR93 QT 350 and QTc 436 Neuro: CT head negative, no tumor, hydrocephalus, no trauma, no hemorrhage, seizure and post ictal state? possible no seizure witnessed, Metabolic: Thyroid TSH .22, free T4 0.87, No hyponatremia, no hypoglycemia since admission, being treated for DKA, metabolic encephalopathy possible Psychiatric disorder: unknown Qualifiers: Altered mental status type: coma Coma depth: [place] coma 3-8 Coma timing: in the field (EMT or ambulance) Qualified Code(s): R40.2431 - [place] coma scale score 3-8, in the field [EMT or ambulance] (3) OCD (obsessive compulsive disorder) Impression: currently obtunded Plan: resume home meds when she wakes up Qualifiers: Obsessive-compulsive disorder type: unspecified Qualified Code(s): F42.9 - Obsessive-compulsive disorder, unspecified <Delfina Kellogg - Last Filed: 03/29/22 15:32> Objective - Vital Signs/Intake & Output Vital Signs: Vital Signs x48h Temp Pulse Resp BP Pulse Ox 03/29/22 15:00 114 H 20 123/71 95 03/29/22 14:00 101 H 21 126/65 94 03/29/22 13:00 112 H 22 122/65 100 03/29/22 12:00 37.2 C 104 H 17 122/63 99 03/29/22 11:00 100 20 119/67 100 03/29/22 10:00 98 16 119/66 100 03/29/22 09:00 103 H 19 123/63 99 03/29/22 08:00 36.6 C 101 H 20 112/63 100 Intake & Output: Intake & Output 03/26/22 03/27/22 03/28/22 03/29/22 23:59 23:59 23:59 23:59 Intake Total 1999 5867.083 3063.925 Output Total 1640 752 Balance 1999 4521.083 2311.925 - Lab Results Fish Bones: 03/29/22 04:38 03/29/22 09:33 Other Labs: Lab Results x24hrs 03/29/22 03/29/22 03/29/22 Range/Units 09:33 09:33 04:38 WBC (4.8-10.8) x10^3/uL RBC (4.20-5.40) 10^6/uL Hgb (12.0-16.0) g/dL Hct (37.0-47.0) % MCV (81.0-99.0) fL MCH (27.0-31.0) pg MCHC (32.0-36.0) g/dL RDW (12.0-15.0) % Plt Count (130-450) 10^3/uL MPV (7.9-10.8) fL Neut # (Auto) Lymph # (Auto) Hinds # (Auto) Eos # (Auto) Baso # (Auto) Absolute Nucleated RBC Total Counted Band Neuts % (Manual) (0 - 10) % Abnorm Lymph % (Manual) % Nucleated RBC % Neutrophils # (Manual) (1.5-6.6) 10^3/uL Lymphocytes # (Manual) (1.5-3.5) 10^3/uL Monocytes # (Manual) (0.0-1.0) 10^3/uL Eosinophils # (Manual) (0-0.7) 10^3/uL Basophils # (Manual) (0-0.1) 10^3/uL Differential Comment WBC Morphology (NORMAL) Platelet Estimate (NORMAL) Platelet Morphology (NORMAL) RBC Morph Micro Appear (NORMAL) Bld Gas Analysis Time Sample Site ABG pH (7.35-7.45) ABG pCO2 (34-45) mmHg ABG pO2 (80-100) mmHg ABG HCO3 (22.0-26.0) mmol/L ABG Total CO2 (21.0-29.0) MMOL/L ABG O2 Saturation (94-98) % ABG Base Excess (-2.0-3.0) mmol/L Alek Test VBG pH 7.230 L 7.260 L (7.31-7.41) VBG pCO2 40.6 L (41-51) mmHg VBG pO2 58.3 H (25-47) mmHg VBG HCO3 17.8 L (23-28) mmol/L VBG Total CO2 19.1 L (24-29) mmol/L VBG O2 Saturation 89.5 H (60-80) % VBG Base Excess -8.7 L (-2 - +2) mmol/L Ionized Calcium 1.22 (1.15-1.33) mmol/L O2 Delivery Device Sodium (135-145) mmol/L Potassium 4.3 (3.5-5.0) mmol/L Chloride (101-111) mmol/L Carbon Dioxide (21-32) mmol/L Anion Gap (6-13) BUN (6-20) mg/dL Creatinine (0.4-1.0) mg/dL Estimated GFR (MDRD) (>89) Glucose (70-100) mg/dL Lactic Acid (0.5-2.2) mmol/L Calcium (8.5-10.3) mg/dL Phosphorus 1.7 L (2.5-4.6) mg/dL Magnesium 1.9 (1.7-2.8) mg/dL Total Bilirubin (0.2-1.0) mg/dL AST (10-42) IU/L ALT (10-60) IU/L Alkaline Phosphatase (42-121) IU/L Total Creatine Kinase (22-269) IU/L Troponin I High Sens (2.3-14.8) ng/L Total Protein (6.7-8.2) g/dL Albumin (3.2-5.5) g/dL Globulin (2.1-4.2) g/dL Albumin/Globulin Ratio (1.0-2.2) Lipase (22-51) U/L Free T3 pg/mL (2.5-3.9) pg/mL Urine HCG, Qual Nasal Screen MRSA (PCR) (NEGATIVE) Serum Ketones (NEGATIVE) 03/29/22 03/29/22 03/29/22 Range/Units 04:38 04:38 00:27 WBC 13.9 H (4.8-10.8) x10^3/uL RBC 3.24 L (4.20-5.40) 10^6/uL Hgb 9.3 L (12.0-16.0) g/dL Hct 30.0 L (37.0-47.0) % MCV 92.6 (81.0-99.0) fL MCH 28.7 (27.0-31.0) pg MCHC 31.0 L (32.0-36.0) g/dL RDW 13.8 (12.0-15.0) % Plt Count 261 (130-450) 10^3/uL MPV 10.1 (7.9-10.8) fL Neut # (Auto) Not Reportable Lymph # (Auto) Not Reportable Hinds # (Auto) Not Reportable Eos # (Auto) Not Reportable Baso # (Auto) Not Reportable Absolute Nucleated RBC Not Reportable Total Counted 100 Band Neuts % (Manual) 0 (0 - 10) % Abnorm Lymph % (Manual) 0 % Nucleated RBC % Not Reportable Neutrophils # (Manual) 8.3 H (1.5-6.6) 10^3/uL Lymphocytes # (Manual) 4.2 H (1.5-3.5) 10^3/uL Monocytes # (Manual) 1.4 H (0.0-1.0) 10^3/uL Eosinophils # (Manual) 0.0 (0-0.7) 10^3/uL Basophils # (Manual) 0.0 (0-0.1) 10^3/uL Differential Comment MANUAL DIFFERENTIAL WBC Morphology NORMAL APPEARANCE (NORMAL) Platelet Estimate NORMAL (130-450,000) (NORMAL) Platelet Morphology NORMAL APPEARANCE (NORMAL) RBC Morph Micro Appear NORMAL APPEARANCE (NORMAL) Bld Gas Analysis Time Sample Site ABG pH (7.35-7.45) ABG pCO2 (34-45) mmHg ABG pO2 (80-100) mmHg ABG HCO3 (22.0-26.0) mmol/L ABG Total CO2 (21.0-29.0) MMOL/L ABG O2 Saturation (94-98) % ABG Base Excess (-2.0-3.0) mmol/L Alek Test VBG pH 7.217 L (7.31-7.41) VBG pCO2 (41-51) mmHg VBG pO2 (25-47) mmHg VBG HCO3 (23-28) mmol/L VBG Total CO2 (24-29) mmol/L VBG O2 Saturation (60-80) % VBG Base Excess (-2 - +2) mmol/L Ionized Calcium 1.19 (1.15-1.33) mmol/L O2 Delivery Device Sodium 140 (135-145) mmol/L Potassium 3.5 (3.5-5.0) mmol/L Chloride 115 H (101-111) mmol/L Carbon Dioxide 19 L (21-32) mmol/L Anion Gap 6.0 (6-13) BUN 19 (6-20) mg/dL Creatinine 1.1 H (0.4-1.0) mg/dL Estimated GFR (MDRD) 58 L (>89) Glucose 126 H (70-100) mg/dL Lactic Acid (0.5-2.2) mmol/L Calcium 8.1 L (8.5-10.3) mg/dL Phosphorus (2.5-4.6) mg/dL Magnesium 2.2 (1.7-2.8) mg/dL Total Bilirubin (0.2-1.0) mg/dL AST (10-42) IU/L ALT (10-60) IU/L Alkaline Phosphatase (42-121) IU/L Total Creatine Kinase (22-269) IU/L Troponin I High Sens (2.3-14.8) ng/L Total Protein (6.7-8.2) g/dL Albumin (3.2-5.5) g/dL Globulin (2.1-4.2) g/dL Albumin/Globulin Ratio (1.0-2.2) Lipase (22-51) U/L Free T3 pg/mL (2.5-3.9) pg/mL Urine HCG, Qual Nasal Screen MRSA (PCR) (NEGATIVE) Serum Ketones SMALL H (NEGATIVE) 03/29/22 03/28/22 03/28/22 Range/Units 00:27 20:00 20:00 WBC (4.8-10.8) x10^3/uL RBC (4.20-5.40) 10^6/uL Hgb (12.0-16.0) g/dL Hct (37.0-47.0) % MCV (81.0-99.0) fL MCH (27.0-31.0) pg MCHC (32.0-36.0) g/dL RDW (12.0-15.0) % Plt Count (130-450) 10^3/uL MPV (7.9-10.8) fL Neut # (Auto) Lymph # (Auto) Hinds # (Auto) Eos # (Auto) Baso # (Auto) Absolute Nucleated RBC Total Counted Band Neuts % (Manual) (0 - 10) % Abnorm Lymph % (Manual) % Nucleated RBC % Neutrophils # (Manual) (1.5-6.6) 10^3/uL Lymphocytes # (Manual) (1.5-3.5) 10^3/uL Monocytes # (Manual) (0.0-1.0) 10^3/uL Eosinophils # (Manual) (0-0.7) 10^3/uL Basophils # (Manual) (0-0.1) 10^3/uL Differential Comment WBC Morphology (NORMAL) Platelet Estimate (NORMAL) Platelet Morphology (NORMAL) RBC Morph Micro Appear (NORMAL) Bld Gas Analysis Time Sample Site ABG pH (7.35-7.45) ABG pCO2 (34-45) mmHg ABG pO2 (80-100) mmHg ABG HCO3 (22.0-26.0) mmol/L ABG Total CO2 (21.0-29.0) MMOL/L ABG O2 Saturation (94-98) % ABG Base Excess (-2.0-3.0) mmol/L Alek Test VBG pH (7.31-7.41) VBG pCO2 (41-51) mmHg VBG pO2 (25-47) mmHg VBG HCO3 (23-28) mmol/L VBG Total CO2 (24-29) mmol/L VBG O2 Saturation (60-80) % VBG Base Excess (-2 - +2) mmol/L Ionized Calcium (1.15-1.33) mmol/L O2 Delivery Device Sodium 140 (135-145) mmol/L Potassium 3.4 L (3.5-5.0) mmol/L Chloride 113 H (101-111) mmol/L Carbon Dioxide 15 L (21-32) mmol/L Anion Gap 12.0 (6-13) BUN 20 (6-20) mg/dL Creatinine 1.3 H (0.4-1.0) mg/dL Estimated GFR (MDRD) 48 L (>89) Glucose 210 H (70-100) mg/dL Lactic Acid (0.5-2.2) mmol/L Calcium 8.1 L (8.5-10.3) mg/dL Phosphorus 2.3 L (2.5-4.6) mg/dL Magnesium 1.6 L (1.7-2.8) mg/dL Total Bilirubin (0.2-1.0) mg/dL AST (10-42) IU/L ALT (10-60) IU/L Alkaline Phosphatase (42-121) IU/L Total Creatine Kinase (22-269) IU/L Troponin I High Sens (2.3-14.8) ng/L Total Protein (6.7-8.2) g/dL Albumin (3.2-5.5) g/dL Globulin (2.1-4.2) g/dL Albumin/Globulin Ratio (1.0-2.2) Lipase (22-51) U/L Free T3 pg/mL (2.5-3.9) pg/mL Urine HCG, Qual NEGATIVE Nasal Screen MRSA (PCR) NEGATIVE (NEGATIVE) Serum Ketones (NEGATIVE) 03/28/22 03/28/22 03/28/22 Range/Units 16:00 16:00 16:00 WBC 11.1 H (4.8-10.8) x10^3/uL RBC 3.94 L (4.20-5.40) 10^6/uL Hgb 11.3 L (12.0-16.0) g/dL Hct 37.2 (37.0-47.0) % MCV 94.4 (81.0-99.0) fL MCH 28.7 (27.0-31.0) pg MCHC 30.4 L (32.0-36.0) g/dL RDW 13.4 (12.0-15.0) % Plt Count 331 (130-450) 10^3/uL MPV 10.2 (7.9-10.8) fL Neut # (Auto) Not Reportable Lymph # (Auto) Not Reportable [place] # (Auto) Not Reportable Eos # (Auto) Not Reportable Baso # (Auto) Not Reportable Absolute Nucleated RBC Not Reportable Total Counted 100 Band Neuts % (Manual) 0 (0 - 10) % Abnorm Lymph % (Manual) 0 % Nucleated RBC % Not Reportable Neutrophils # (Manual) 9.5 H (1.5-6.6) 10^3/uL Lymphocytes # (Manual) 0.4 L (1.5-3.5) 10^3/uL Monocytes # (Manual) 0.9 (0.0-1.0) 10^3/uL Eosinophils # (Manual) 0.2 (0-0.7) 10^3/uL Basophils # (Manual) 0.0 (0-0.1) 10^3/uL Differential Comment MANUAL DIFFERENTIAL WBC Morphology (NORMAL) Platelet Estimate NORMAL (130-450,000) (NORMAL) Platelet Morphology NORMAL APPEARANCE (NORMAL) RBC Morph Micro Appear NORMAL APPEARANCE (NORMAL) Bld Gas Analysis Time Sample Site ABG pH (7.35-7.45) ABG pCO2 (34-45) mmHg ABG pO2 (80-100) mmHg ABG HCO3 (22.0-26.0) mmol/L ABG Total CO2 (21.0-29.0) MMOL/L ABG O2 Saturation (94-98) % ABG Base Excess (-2.0-3.0) mmol/L Alek Test VBG pH (7.31-7.41) VBG pCO2 (41-51) mmHg VBG pO2 (25-47) mmHg VBG HCO3 (23-28) mmol/L VBG Total CO2 (24-29) mmol/L VBG O2 Saturation (60-80) % VBG Base Excess (-2 - +2) mmol/L Ionized Calcium (1.15-1.33) mmol/L O2 Delivery Device Sodium (135-145) mmol/L Potassium (3.5-5.0) mmol/L Chloride (101-111) mmol/L Carbon Dioxide (21-32) mmol/L Anion Gap (6-13) BUN (6-20) mg/dL Creatinine (0.4-1.0) mg/dL Estimated GFR (MDRD) (>89) Glucose (70-100) mg/dL Lactic Acid (0.5-2.2) mmol/L Calcium (8.5-10.3) mg/dL Phosphorus (2.5-4.6) mg/dL Magnesium (1.7-2.8) mg/dL Total Bilirubin (0.2-1.0) mg/dL AST (10-42) IU/L ALT (10-60) IU/L Alkaline Phosphatase (42-121) IU/L Total Creatine Kinase 204 (22-269) IU/L Troponin I High Sens (2.3-14.8) ng/L Total Protein (6.7-8.2) g/dL Albumin (3.2-5.5) g/dL Globulin (2.1-4.2) g/dL Albumin/Globulin Ratio (1.0-2.2) Lipase (22-51) U/L Free T3 pg/mL 2.25 L (2.5-3.9) pg/mL Urine HCG, Qual Nasal Screen MRSA (PCR) (NEGATIVE) Serum Ketones (NEGATIVE) 03/28/22 03/28/22 03/28/22 Range/Units 16:00 16:00 15:47 WBC (4.8-10.8) x10^3/uL RBC (4.20-5.40) 10^6/uL Hgb (12.0-16.0) g/dL Hct (37.0-47.0) % MCV (81.0-99.0) fL MCH (27.0-31.0) pg MCHC (32.0-36.0) g/dL RDW (12.0-15.0) % Plt Count (130-450) 10^3/uL MPV (7.9-10.8) fL Neut # (Auto) Lymph # (Auto) [place] # (Auto) Eos # (Auto) Baso # (Auto) Absolute Nucleated RBC Total Counted Band Neuts % (Manual) (0 - 10) % Abnorm Lymph % (Manual) % Nucleated RBC % Neutrophils # (Manual) (1.5-6.6) 10^3/uL Lymphocytes # (Manual) (1.5-3.5) 10^3/uL Monocytes # (Manual) (0.0-1.0) 10^3/uL Eosinophils # (Manual) (0-0.7) 10^3/uL Basophils # (Manual) (0-0.1) 10^3/uL Differential Comment WBC Morphology (NORMAL) Platelet Estimate (NORMAL) Platelet Morphology (NORMAL) RBC Morph Micro Appear (NORMAL) Bld Gas Analysis Time Sample Site ABG pH (7.35-7.45) ABG pCO2 (34-45) mmHg ABG pO2 (80-100) mmHg ABG HCO3 (22.0-26.0) mmol/L ABG Total CO2 (21.0-29.0) MMOL/L ABG O2 Saturation (94-98) % ABG Base Excess (-2.0-3.0) mmol/L Alek Test VBG pH (7.31-7.41) VBG pCO2 (41-51) mmHg VBG pO2 (25-47) mmHg VBG HCO3 (23-28) mmol/L VBG Total CO2 (24-29) mmol/L VBG O2 Saturation (60-80) % VBG Base Excess (-2 - +2) mmol/L Ionized Calcium (1.15-1.33) mmol/L O2 Delivery Device Sodium 138 (135-145) mmol/L Potassium 4.5 (3.5-5.0) mmol/L Chloride 110 (101-111) mmol/L Carbon Dioxide 11 L* (21-32) mmol/L Anion Gap 17.0 H (6-13) BUN 17 (6-20) mg/dL Creatinine 1.1 H (0.4-1.0) mg/dL Estimated GFR (MDRD) 58 L (>89) Glucose 281 H (70-100) mg/dL Lactic Acid 2.4 H (0.5-2.2) mmol/L Calcium 8.1 L (8.5-10.3) mg/dL Phosphorus (2.5-4.6) mg/dL Magnesium (1.7-2.8) mg/dL Total Bilirubin 1.5 H (0.2-1.0) mg/dL AST 20 (10-42) IU/L ALT 15 (10-60) IU/L Alkaline Phosphatase 55 (42-121) IU/L Total Creatine Kinase (22-269) IU/L Troponin I High Sens 28.3 H* (2.3-14.8) ng/L Total Protein 6.0 L (6.7-8.2) g/dL Albumin 3.2 (3.2-5.5) g/dL Globulin 2.8 (2.1-4.2) g/dL Albumin/Globulin Ratio 1.1 (1.0-2.2) Lipase 22 (22-51) U/L Free T3 pg/mL (2.5-3.9) pg/mL Urine HCG, Qual Nasal Screen MRSA (PCR) (NEGATIVE) Serum Ketones MODERATE H (NEGATIVE) 03/28/22 Range/Units 15:15 WBC (4.8-10.8) x10^3/uL RBC (4.20-5.40) 10^6/uL Hgb (12.0-16.0) g/dL Hct (37.0-47.0) % MCV (81.0-99.0) fL MCH (27.0-31.0) pg MCHC (32.0-36.0) g/dL RDW (12.0-15.0) % Plt Count (130-450) 10^3/uL MPV (7.9-10.8) fL Neut # (Auto) Lymph # (Auto) [place] # (Auto) Eos # (Auto) Baso # (Auto) Absolute Nucleated RBC Total Counted Band Neuts % (Manual) (0 - 10) % Abnorm Lymph % (Manual) % Nucleated RBC % Neutrophils # (Manual) (1.5-6.6) 10^3/uL Lymphocytes # (Manual) (1.5-3.5) 10^3/uL Monocytes # (Manual) (0.0-1.0) 10^3/uL Eosinophils # (Manual) (0-0.7) 10^3/uL Basophils # (Manual) (0-0.1) 10^3/uL Differential Comment WBC Morphology (NORMAL) Platelet Estimate (NORMAL) Platelet Morphology (NORMAL) RBC Morph Micro Appear (NORMAL) Bld Gas Analysis Time 1528 Sample Site RIGHT BRACHIAL ABG pH 7.23 L (7.35-7.45) ABG pCO2 25 L* (34-45) mmHg ABG pO2 107 H (80-100) mmHg ABG HCO3 10.0 L (22.0-26.0) mmol/L ABG Total CO2 10.8 L* (21.0-29.0) MMOL/L ABG O2 Saturation 97 (94-98) % ABG Base Excess -15.8 L (-2.0-3.0) mmol/L Alek Test NOT APPLICABLE VBG pH (7.31-7.41) VBG pCO2 (41-51) mmHg VBG pO2 (25-47) mmHg VBG HCO3 (23-28) mmol/L VBG Total CO2 (24-29) mmol/L VBG O2 Saturation (60-80) % VBG Base Excess (-2 - +2) mmol/L Ionized Calcium (1.15-1.33) mmol/L O2 Delivery Device ROOM AIR Sodium (135-145) mmol/L Potassium (3.5-5.0) mmol/L Chloride (101-111) mmol/L Carbon Dioxide (21-32) mmol/L Anion Gap (6-13) BUN (6-20) mg/dL Creatinine (0.4-1.0) mg/dL Estimated GFR (MDRD) (>89) Glucose (70-100) mg/dL Lactic Acid (0.5-2.2) mmol/L Calcium (8.5-10.3) mg/dL Phosphorus (2.5-4.6) mg/dL Magnesium (1.7-2.8) mg/dL Total Bilirubin (0.2-1.0) mg/dL AST (10-42) IU/L ALT (10-60) IU/L Alkaline Phosphatase (42-121) IU/L Total Creatine Kinase (22-269) IU/L Troponin I High Sens (2.3-14.8) ng/L Total Protein (6.7-8.2) g/dL Albumin (3.2-5.5) g/dL Globulin (2.1-4.2) g/dL Albumin/Globulin Ratio (1.0-2.2) Lipase (22-51) U/L Free T3 pg/mL (2.5-3.9) pg/mL Urine HCG, Qual Nasal Screen MRSA (PCR) (NEGATIVE) Serum Ketones (NEGATIVE)
[2022-03-29] MEDS: CHOLECALCIFEROL 25 MCG TABLET PO SCH (09:19)
[2022-03-29] MEDS: ENOXAPARIN 40 MG/0.4 ML SYRINGE SUBQ SCH (09:23)
[2022-03-29 09:40] LABS: CALCIUM, IONIZED 1.22 mmol/L (1.15-1.33); VBG PH 7.23 (7.31-7.41)
[2022-03-29 09:56] LABS: MAGNESIUM 1.9 mg/dL (1.7-2.8); PHOSPHORUS 1.7 mg/dL (2.5-4.6); POTASSIUM 4.3 mmol/L (3.5-5.0)
[2022-03-29] MEDS: INSULIN GLARGINE-YFGN 300 UNIT/3 ML PEN SUBQ SCH ×2 (10:23→20:12)
[2022-03-29] MEDS ORDERED: SODIUM PHOSPHATE 15 MMOL in SODIUM CHLORIDE 0.9% 250 ML IV ONE (11:00)
[2022-03-29] MEDS: INSULIN REGULAR HUMAN 300 UNIT/3 ML VIAL SUBQ SCH ×2 (12:11→17:53)
[2022-03-29 13:25] LABS: ESTIMATED AVERAGE GLUCOSE 192 mg/dL (70-100); HEMOGLOBIN A1c% 8.3 % (4.27-6.07)
--- NOTE | 2022-03-29 14:24 | PHARMACY PROGRESS NOTE ---
- Best Possible Medication History Admit Date and Time: 03/28/22 1514 Processed by: Pharmacy Medication History completed: Yes Patient Interview: Pt unable to participate Secondary Source(s): Pharmacy records, Insurance records As the person ultimately responsible for medication therapy, providers are able to order a medication from an existing home medication list in [facility] via the "Reconcile Routine" prior to Confirmation of that medication by personal support worker. Such practice is discouraged except when the physician, in their clinical judgment, deems that a medical need exists for a medication without regard to previous use.
[2022-03-29 16:38] LABS: CALCIUM, IONIZED 1.17 mmol/L (1.15-1.33); VBG PH 7.371 (7.31-7.41)
[2022-03-29 16:49] LABS: MAGNESIUM 1.7 mg/dL (1.7-2.8); PHOSPHORUS 1.9 mg/dL (2.5-4.6); POTASSIUM 3.7 mmol/L (3.5-5.0)
[2022-03-29] MEDS ORDERED: POTASSIUM PHOSPHATE 15 MMOL in SODIUM CHLORIDE 0.9% 250 ML IV ONE (18:00)
[2022-03-30] MEDS: INSULIN REGULAR HUMAN 300 UNIT/3 ML VIAL SUBQ SCH ×4 (00:09→17:57)
[2022-03-30] MEDS: DEXTROSE 5%-0.9% NACL 1,000 ML IV SCH ×3 (02:34→19:01)
[2022-03-30] MEDS: SODIUM CHLORIDE FLUSH 0.9% 10 ML SYRINGE IVP SCH ×3 (02:34→17:20)
[2022-03-30 04:42] LABS: BASOPHILS % (AUTO) 0.4 %; EOSINOPHILS % (AUTO) 0.7 %; HCT - HEMATOCRIT 31.6 % (37.0-47.0); HGB - HEMOGLOBIN 10.2 g/dL (12.0-16.0); LYMPHOCYTES # (AUTO) 2.5 10^3/uL (1.5-3.5); LYMPHOCYTES % (AUTO) 46.6 %; MEAN CORPUSCULAR HEMOGLOBIN 29.1 pg (27.0-31.0); MEAN CORPUSCULAR HGB CONC 32.3 g/dL (32.0-36.0); MEAN CORPUSCULAR VOLUME 90.3 fL (81.0-99.0); MEAN PLATELET VOLUME 9.8 fL (7.9-10.8); MONOCYTES # (AUTO) 0.5 10^3/uL (0.0-1.0); MONOCYTES % (AUTO) 9.7 %; NEUTROPHILS # (AUTO) 2.3 10^3/uL (1.5-6.6); NEUTROPHILS % (AUTO) 42.4 %; PLT - PLATELET COUNT 239 10^3/uL (130-450); RED CELL DISTRIBUTION WIDTH 13.9 % (12.0-15.0); WHITE BLOOD COUNT 5.4 x10^3/uL (4.8-10.8)
[2022-03-30 04:44] LABS: CALCIUM, IONIZED 1.14 mmol/L (1.15-1.33); VBG BASE EXCESS -4.9 mmol/L (-2 - +2); VBG HCO3 19.3 mmol/L (23-28); VBG OXYGEN SATURATION 97.6 % (60-80); VBG PCO2 33.2 mmHg (41-51); VBG PH 7.383 (7.31-7.41); VBG PO2 100.6 mmHg (25-47); VBG TOTAL CO2 20.4 mmol/L (24-29)
[2022-03-30 05:01] LABS: CREATININE 0.8 mg/dL (0.4-1.0); POTASSIUM 3.5 mmol/L (3.5-5.0)
[2022-03-30] MEDS: PANTOPRAZOLE 40 MG TABLET PO SCH (06:21)
[2022-03-30] MEDS: POTASSIUM CHLOR 10 MEQ/100 ML 10 MEQ/100 ML BAG IV SCH ×8 (06:21→21:26)
[2022-03-30] MEDS: ENOXAPARIN 40 MG/0.4 ML SYRINGE SUBQ SCH (08:27)
[2022-03-30] MEDS: CHOLECALCIFEROL 25 MCG TABLET PO SCH (08:27)
[2022-03-30] MEDS: INSULIN GLARGINE-YFGN 300 UNIT/3 ML PEN SUBQ SCH ×2 (08:39→21:32)
--- NOTE | 2022-03-30 10:15 | PROVIDER PROGRESS NOTE ---
Subjective - Prog Note Date Prog Note Date: 03/30/22 Prog Note Time: 10:14 - Subjective Pt reports feeling: Improved Subjective: History obtained from chart due to AMS. Alda is a 31 yo female with PMH of type 1 diabetes with insulin pump, mental health issues, depression, PTSD. Today I encounter Alda lying in bed, her eyes are closed, she stirs to voice and does intermittently follow commands. Withdraws x4 extremities, negative Krenig sign. Eyes are mid dilation reactive to light, must be pried open. Her mother is at bedside. Current Medications - Current Medications Current Medications: Acetaminophen (Acetaminophen 500 Mg Tablet) 1,000 mg PO Q6H PRN PRN Reason: Mild Pain Or Fever>38c(100.4f) Acetaminophen (Acetaminophen 325 Mg Tablet) 650 mg PO Q4HR PRN PRN Reason: Pain 1 to 4, or Fever Cholecalciferol (Cholecalciferol 25 Mcg Tablet) 50 mcg PO DAILY [facility] Last Admin: 03/30/22 08:27 Dose: Not Given Enoxaparin Sodium (Enoxaparin 40 Mg/0.4 Ml Syringe) 40 mg SUBQ DAILY [facility] Last Admin: 03/30/22 08:27 Dose: 40 mg Dextrose/Sodium Chloride (D5ns) 1,000 mls @ 125 mls/hr IV .Q8H [facility] Last Admin: 03/30/22 08:27 Dose: 125 mls/hr Insulin Human Regular 100 unit (/ Sodium Chloride) 100 mls @ 7 mls/hr IV .[id number] [facility]; Protocol Last Admin: 03/29/22 22:49 Dose: Not Given Acetaminophen (Acetaminophen) 1,000 mg in 100 mls @ 400 mls/hr IV Q6HR PRN PRN Reason: PAIN Last Infusion: 03/28/22 22:05 Dose: Infused Insulin Glargine-yfgn (Insulin Glargine-Yfgn 300 Unit/3 Ml Pen) 10 unit SUBQ BID [facility] Last Admin: 03/30/22 08:39 Dose: 10 unit Insulin Human Regular (Insulin Regular Human 300 Unit/3 Ml Vial) 3 - 11 unit SUBQ Q6HR [facility]; Protocol Last Admin: 03/30/22 05:46 Dose: Not Given Lorazepam (Lorazepam 2 Mg/Ml Vial) 1 mg IVP Q2H PRN PRN Reason: Agitation Last Admin: 03/29/22 02:40 Dose: 1 mg Ondansetron HCl (Ondansetron Odt 4 Mg Tablet) 4 mg TL Q6HR PRN PRN Reason: Nausea / Vomiting Ondansetron HCl (Ondansetron 4 Mg/2 Ml Vial) 4 mg IVP Q6HR PRN PRN Reason: Nausea / Vomiting Oxycodone HCl (Oxycodone 5 Mg Tablet) 5 mg PO Q4HR PRN PRN Reason: Pain 5 to 7 Pantoprazole Sodium (Pantoprazole 40 Mg Tablet) 40 mg PO QDAC [facility] Last Admin: 03/30/22 06:21 Dose: Not Given Sodium Chloride (Sodium Chloride Flush 0.9% 10 Ml Syringe) 10 ml IVP 0100,0900,1700 [facility] Last Admin: 03/30/22 08:28 Dose: 10 ml Sodium Chloride (Sodium Chloride Flush 0.9% 10 Ml Syringe) 10 ml IVP PRN PRN PRN Reason: NEEDED PER PROVIDER ORDERS Last Admin: 03/28/22 23:38 Dose: 10 ml Objective - Vital Signs/Intake & Output Vital Signs: Vital Signs x48h Temp Pulse Resp BP Pulse Ox 03/30/22 10:00 82 15 146/90 H 97 03/30/22 09:00 86 20 146/90 H 98 03/30/22 08:15 37.0 C 03/30/22 08:00 69 16 158/90 H 98 03/30/22 07:00 85 18 128/81 H 98 03/30/22 06:00 79 17 139/90 H 97 03/30/22 05:00 91 15 134/94 H 97 03/30/22 04:00 83 13 146/81 H 96 03/30/22 03:00 91 15 134/94 H 97 Intake & Output: Intake & Output 03/27/22 03/28/22 03/29/22 03/30/22 23:59 23:59 23:59 23:59 Intake Total 1999 6167.083 4623.925 1935.417 Output Total 5565 1128 685 Balance 1999 4521.083 3495.925 1250.417 - Objective General Appearance: positive: No acute distress (lying in bed appears to be asleep, occasional stiring.) Eyes: OU Abnormal pupil (both eyes mid dilated, PERRL) Neck: positive: Nml inspection Respiratory: positive: Chest non-tender, Breath sounds nml Cardiovascular: positive: Regular rate & rhythm Peripheral Pulses: 2+ Radial (R), 2+ Radial (L) Abdomen: positive: Non-tender, Abnml bowel sounds (hypoactive) Skin: positive: Color nml Extremities: positive: Non-tender Neurologic/Psychiatric: positive: Other (obtunded, minimal interaction) - Lab Results Fish Bones: 03/30/22 04:30 03/30/22 04:30 Other Labs: Lab Results x24hrs 03/30/22 03/30/22 03/30/22 Range/Units 04:30 04:30 04:30 WBC (4.8-10.8) x10^3/uL RBC (4.20-5.40) 10^6/uL Hgb (12.0-16.0) g/dL Hct (37.0-47.0) % MCV (81.0-99.0) fL MCH (27.0-31.0) pg MCHC (32.0-36.0) g/dL RDW (12.0-15.0) % Plt Count (130-450) 10^3/uL MPV (7.9-10.8) fL Neut # (Auto) (1.5-6.6) 10^3/uL Lymph # (Auto) (1.5-3.5) 10^3/uL [place] # (Auto) (0.0-1.0) 10^3/uL Eos # (Auto) (0.0-0.7) 10^3/uL Baso # (Auto) (0.0-0.1) 10^3/uL Absolute Nucleated RBC x10^3/uL Nucleated RBC % /100WBC VBG pH 7.383 7.383 (7.31-7.41) VBG pCO2 33.2 L (41-51) mmHg VBG pO2 100.6 H (25-47) mmHg VBG HCO3 19.3 L (23-28) mmol/L VBG Total CO2 20.4 L (24-29) mmol/L VBG O2 Saturation 97.6 H (60-80) % VBG Base Excess -4.9 L (-2 - +2) mmol/L Ionized Calcium 1.14 L (1.15-1.33) mmol/L Sodium (135-145) mmol/L Potassium (3.5-5.0) mmol/L Chloride (101-111) mmol/L Carbon Dioxide (21-32) mmol/L Anion Gap (6-13) BUN (6-20) mg/dL Creatinine (0.4-1.0) mg/dL Estimated GFR (MDRD) (>89) Glucose (70-100) mg/dL Estimat Average Glucose (70-100) mg/dL Hemoglobin A1c % (4.27-6.07) % Calcium (8.5-10.3) mg/dL Phosphorus 3.0 (2.5-4.6) mg/dL Magnesium 2.0 (1.7-2.8) mg/dL Vitamin D 25-Hydroxy (30.0-100.0) ng/mL 03/30/22 03/30/22 03/29/22 Range/Units 04:30 04:30 Unknown WBC 5.4 (4.8-10.8) x10^3/uL RBC 3.50 L (4.20-5.40) 10^6/uL Hgb 10.2 L (12.0-16.0) g/dL Hct 31.6 L (37.0-47.0) % MCV 90.3 (81.0-99.0) fL MCH 29.1 (27.0-31.0) pg MCHC 32.3 (32.0-36.0) g/dL RDW 13.9 (12.0-15.0) % Plt Count 239 (130-450) 10^3/uL MPV 9.8 (7.9-10.8) fL Neut # (Auto) 2.3 (1.5-6.6) 10^3/uL Lymph # (Auto) 2.5 (1.5-3.5) 10^3/uL [place] # (Auto) 0.5 (0.0-1.0) 10^3/uL Eos # (Auto) 0.0 (0.0-0.7) 10^3/uL Baso # (Auto) 0.0 (0.0-0.1) 10^3/uL Absolute Nucleated RBC 0.00 x10^3/uL Nucleated RBC % 0.0 /100WBC VBG pH (7.31-7.41) VBG pCO2 (41-51) mmHg VBG pO2 (25-47) mmHg VBG HCO3 (23-28) mmol/L VBG Total CO2 (24-29) mmol/L VBG O2 Saturation (60-80) % VBG Base Excess (-2 - +2) mmol/L Ionized Calcium (1.15-1.33) mmol/L Sodium 142 (135-145) mmol/L Potassium 3.5 (3.5-5.0) mmol/L Chloride 116 H (101-111) mmol/L Carbon Dioxide 21 (21-32) mmol/L Anion Gap 5.0 L (6-13) BUN 12 (6-20) mg/dL Creatinine 0.8 (0.4-1.0) mg/dL Estimated GFR (MDRD) 84 L (>89) Glucose 120 H (70-100) mg/dL Estimat Average Glucose (70-100) mg/dL Hemoglobin A1c % (4.27-6.07) % Calcium 8.0 L (8.5-10.3) mg/dL Phosphorus (2.5-4.6) mg/dL Magnesium (1.7-2.8) mg/dL Vitamin D 25-Hydroxy 87.0 (30.0-100.0) ng/mL 03/29/22 03/29/22 03/29/22 Range/Units 16:31 16:31 04:38 WBC (4.8-10.8) x10^3/uL RBC (4.20-5.40) 10^6/uL Hgb (12.0-16.0) g/dL Hct (37.0-47.0) % MCV (81.0-99.0) fL MCH (27.0-31.0) pg MCHC (32.0-36.0) g/dL RDW (12.0-15.0) % Plt Count (130-450) 10^3/uL MPV (7.9-10.8) fL Neut # (Auto) (1.5-6.6) 10^3/uL Lymph # (Auto) (1.5-3.5) 10^3/uL [place] # (Auto) (0.0-1.0) 10^3/uL Eos # (Auto) (0.0-0.7) 10^3/uL Baso # (Auto) (0.0-0.1) 10^3/uL Absolute Nucleated RBC x10^3/uL Nucleated RBC % /100WBC VBG pH 7.371 (7.31-7.41) VBG pCO2 (41-51) mmHg VBG pO2 (25-47) mmHg VBG HCO3 (23-28) mmol/L VBG Total CO2 (24-29) mmol/L VBG O2 Saturation (60-80) % VBG Base Excess (-2 - +2) mmol/L Ionized Calcium 1.17 (1.15-1.33) mmol/L Sodium (135-145) mmol/L Potassium 3.7 (3.5-5.0) mmol/L Chloride (101-111) mmol/L Carbon Dioxide (21-32) mmol/L Anion Gap (6-13) BUN (6-20) mg/dL Creatinine (0.4-1.0) mg/dL Estimated GFR (MDRD) (>89) Glucose (70-100) mg/dL Estimat Average Glucose 192 H (70-100) mg/dL Hemoglobin A1c % 8.3 H (4.27-6.07) % Calcium (8.5-10.3) mg/dL Phosphorus 1.9 L (2.5-4.6) mg/dL Magnesium 1.7 (1.7-2.8) mg/dL Vitamin D 25-Hydroxy (30.0-100.0) ng/mL Assessment/Plan - Problem List (1) Altered mental status, unspecified Impression: Has been altered since admission, still altered today, does open eyes and squeezed hand to command so small improvement Plan: Wide differential Infection/ Sepsis: No temperature today, WBC normal today, blood cultures pending, urine specimen is cloudy, contaminated with squamous cells, meningitis less likely negative brudzinski sign, viral syndrome, Medication: nothing found on urine tox screen, possible overdose on her home medication, EKG today normal QT, NSR HR93 QT 350 and QTc 436 Neuro: CT head negative, no tumor, hydrocephalus, no trauma, no hemorrhage, seizure and post ictal state? possible no seizure witnessed, Metabolic: Thyroid TSH .22, free T4 0.87, No hyponatremia, no hypoglycemia since admission, being treated for DKA, metabolic encephalopathy possible Psychiatric disorder: unknown Qualifiers: Altered mental status type: coma Coma depth: [place] coma 9-12 Coma timing: in the field (EMT or ambulance) Qualified Code(s): R40.2421 - Viola coma scale score 9-12, in the field [EMT or ambulance] (2) DKA, type 1 Impression: Resolved BG 120, Anion GAP 5, K+ normal, receiving IV hydration due to AMS not taking PO, insulin dripp off Plan: BG being managed by sub q insulin Qualifiers: Diabetes mellitus complication detail: without coma Qualified Code(s): E10.10 - Type 1 diabetes mellitus with ketoacidosis without coma (3) OCD (obsessive compulsive disorder) Impression: currently obtunded Plan: resume home meds when she wakes up Qualifiers: Obsessive-compulsive disorder type: unspecified Qualified Code(s): F42.9 - Obsessive-compulsive disorder, unspecified
[2022-03-31] MEDS: INSULIN REGULAR HUMAN 300 UNIT/3 ML VIAL SUBQ SCH ×2 (00:30→06:25)
[2022-03-31] MEDS: DEXTROSE 5%-0.9% NACL 1,000 ML IV SCH ×2 (03:39→11:04)
[2022-03-31] MEDS: SODIUM CHLORIDE FLUSH 0.9% 10 ML SYRINGE IVP SCH ×3 (03:39→17:40)
[2022-03-31 04:52] LABS: BASOPHILS % (AUTO) 0.3 %; EOSINOPHILS # (AUTO) 0.1 10^3/uL (0.0-0.7); EOSINOPHILS % (AUTO) 1.9 %; LYMPHOCYTES # (AUTO) 2.2 10^3/uL (1.5-3.5); LYMPHOCYTES % (AUTO) 59.6 %; MEAN CORPUSCULAR HGB CONC 32.3 g/dL (32.0-36.0); MEAN CORPUSCULAR VOLUME 89.9 fL (81.0-99.0); MEAN PLATELET VOLUME 9.7 fL (7.9-10.8); MONOCYTES # (AUTO) 0.4 10^3/uL (0.0-1.0); MONOCYTES % (AUTO) 11.5 %; NEUTROPHILS % (AUTO) 26.4 %; PLT - PLATELET COUNT 187 10^3/uL (130-450); RED BLOOD COUNT 3.45 10^6/uL (4.20-5.40); RED CELL DISTRIBUTION WIDTH 13.8 % (12.0-15.0); WHITE BLOOD COUNT 3.7 x10^3/uL (4.8-10.8)
[2022-03-31 04:54] LABS: VBG HCO3 22.1 mmol/L (23-28); VBG PCO2 34.8 mmHg (41-51); VBG PH 7.42 (7.31-7.41); VBG PO2 101.3 mmHg (25-47)
[2022-03-31 04:55] LABS: VBG BASE EXCESS -1.9 mmol/L (-2 - +2); VBG OXYGEN SATURATION 97.7 % (60-80); VBG TOTAL CO2 23.1 mmol/L (24-29)
[2022-03-31 05:00] LABS: CALCIUM 8.2 mg/dL (8.5-10.3); CREATININE 0.7 mg/dL (0.4-1.0)
[2022-03-31] MEDS: PANTOPRAZOLE 40 MG TABLET PO SCH (06:28)
--- NOTE | 2022-03-31 08:09 | PROVIDER PROGRESS NOTE ---
Subjective - Prog Note Date Prog Note Date: 03/31/22 Prog Note Time: 08:08 - Subjective Pt reports feeling: Improved Subjective: Alda was admited for AMS and DKA. Today she is awake and interactive. Her mother who was in the room all night reports that she woke up around 2am this morning. She appears tired and a bit withdrawn. She was not oriented this morning and I informed her of the date. She awakes and interacts appropriately no focal deficits, speech and thoughts are fluid and coherent. Dr. Kellogg asked if she was attempting to drug overdose this morning and she denied. Current Medications - Current Medications Current Medications: Acetaminophen (Acetaminophen 500 Mg Tablet) 1,000 mg PO Q6H PRN PRN Reason: Mild Pain Or Fever>38c(100.4f) Acetaminophen (Acetaminophen 325 Mg Tablet) 650 mg PO Q4HR PRN PRN Reason: Pain 1 to 4, or Fever Cholecalciferol (Cholecalciferol 25 Mcg Tablet) 50 mcg PO DAILY [facility] Last Admin: 03/30/22 08:27 Dose: Not Given Enoxaparin Sodium (Enoxaparin 40 Mg/0.4 Ml Syringe) 40 mg SUBQ DAILY [facility] Last Admin: 03/30/22 08:27 Dose: 40 mg Dextrose/Sodium Chloride (D5ns) 1,000 mls @ 125 mls/hr IV .Q8H [facility] Last Admin: 03/31/22 03:39 Dose: 125 mls/hr Acetaminophen (Acetaminophen) 1,000 mg in 100 mls @ 400 mls/hr IV Q6HR PRN PRN Reason: PAIN Last Infusion: 03/28/22 22:05 Dose: Infused Insulin Glargine-yfgn (Insulin Glargine-Yfgn 300 Unit/3 Ml Pen) 14 unit SUBQ BID [place] Insulin Human Regular (Insulin Regular Human 300 Unit/3 Ml Vial) 3 - 11 unit SUBQ Q6HR [facility]; Protocol Last Admin: 03/31/22 06:25 Dose: 7 unit Lorazepam (Lorazepam 2 Mg/Ml Vial) 1 mg IVP Q2H PRN PRN Reason: Agitation Last Admin: 03/29/22 02:40 Dose: 1 mg Ondansetron HCl (Ondansetron Odt 4 Mg Tablet) 4 mg TL Q6HR PRN PRN Reason: Nausea / Vomiting Ondansetron HCl (Ondansetron 4 Mg/2 Ml Vial) 4 mg IVP Q6HR PRN PRN Reason: Nausea / Vomiting Oxycodone HCl (Oxycodone 5 Mg Tablet) 5 mg PO Q4HR PRN PRN Reason: Pain 5 to 7 Pantoprazole Sodium (Pantoprazole 40 Mg Tablet) 40 mg PO QDAC [facility] Last Admin: 03/31/22 06:28 Dose: 40 mg Sodium Chloride (Sodium Chloride Flush 0.9% 10 Ml Syringe) 10 ml IVP 0100,0900,1700 [facility] Last Admin: 03/31/22 03:39 Dose: 10 ml Sodium Chloride (Sodium Chloride Flush 0.9% 10 Ml Syringe) 10 ml IVP PRN PRN PRN Reason: NEEDED PER PROVIDER ORDERS Last Admin: 03/28/22 23:38 Dose: 10 ml Objective - Vital Signs/Intake & Output Reviewed Vital Signs: Yes Vital Signs: Vital Signs x48h Temp Pulse Resp BP Pulse Ox 03/31/22 07:42 36.5 C 60 18 143/84 H 99 03/31/22 00:18 36.9 C 77 16 148/91 H 98 Intake & Output: Intake & Output 03/28/22 03/29/22 03/30/22 03/31/22 23:59 23:59 23:59 23:59 Intake Total 6167.083 4623.925 3918.750 1356.667 Output Total 1646 1128 1385 850 Balance 4521.083 3495.925 2533.750 506.667 - Objective General Appearance: positive: No acute distress (well nourished female sleeping in bed with blond matteed hair, awakes when I say her name, a bit withdrawn but interacts.) Eyes Bilateral: positive: Normal inspection, PERRL ENT: positive: No signs of dehydration Neck: positive: Nml inspection Respiratory: positive: Chest non-tender, Breath sounds nml Cardiovascular: positive: Regular rate & rhythm Peripheral Pulses: 2+ Radial (R), 2+ Radial (L) Abdomen: positive: Non-tender, Abnml bowel sounds (diminished bowel sounds) Rectal: positive: Non-tender Back: positive: Nml inspection Skin: positive: Color nml, Diaphoresis (hair matted,) Extremities: positive: Non-tender Neurologic/Psychiatric: positive: Oriented x3 (required orientation this morning) - Lab Results Fish Bones: 03/31/22 04:46 03/31/22 04:46 Other Labs: Lab Results x24hrs 03/31/22 03/31/22 03/31/22 Range/Units 04:46 04:46 04:46 WBC 3.7 L (4.8-10.8) x10^3/uL RBC 3.45 L (4.20-5.40) 10^6/uL Hgb 10.0 L (12.0-16.0) g/dL Hct 31.0 L (37.0-47.0) % MCV 89.9 (81.0-99.0) fL MCH 29.0 (27.0-31.0) pg MCHC 32.3 (32.0-36.0) g/dL RDW 13.8 (12.0-15.0) % Plt Count 187 (130-450) 10^3/uL MPV 9.7 (7.9-10.8) fL Neut # (Auto) 1.0 L (1.5-6.6) 10^3/uL Lymph # (Auto) 2.2 (1.5-3.5) 10^3/uL [place] # (Auto) 0.4 (0.0-1.0) 10^3/uL Eos # (Auto) 0.1 (0.0-0.7) 10^3/uL Baso # (Auto) 0.0 (0.0-0.1) 10^3/uL Absolute Nucleated RBC 0.00 x10^3/uL Nucleated RBC % 0.0 /100WBC VBG pH 7.420 H (7.31-7.41) VBG pCO2 34.8 L (41-51) mmHg VBG pO2 101.3 H (25-47) mmHg VBG HCO3 22.1 L (23-28) mmol/L VBG Total CO2 23.1 L (24-29) mmol/L VBG O2 Saturation 97.7 H (60-80) % VBG Base Excess -1.9 (-2 - +2) mmol/L Sodium 140 (135-145) mmol/L Potassium 4.0 (3.5-5.0) mmol/L Chloride 112 H (101-111) mmol/L Carbon Dioxide 24 (21-32) mmol/L Anion Gap 4.0 L (6-13) BUN 7 (6-20) mg/dL Creatinine 0.7 (0.4-1.0) mg/dL Estimated GFR (MDRD) 98 (>89) Glucose 260 H (70-100) mg/dL Calcium 8.2 L (8.5-10.3) mg/dL 03/30/22 Range/Units 16:02 WBC (4.8-10.8) x10^3/uL RBC (4.20-5.40) 10^6/uL Hgb (12.0-16.0) g/dL Hct (37.0-47.0) % MCV (81.0-99.0) fL MCH (27.0-31.0) pg MCHC (32.0-36.0) g/dL RDW (12.0-15.0) % Plt Count (130-450) 10^3/uL MPV (7.9-10.8) fL Neut # (Auto) (1.5-6.6) 10^3/uL Lymph # (Auto) (1.5-3.5) 10^3/uL [place] # (Auto) (0.0-1.0) 10^3/uL Eos # (Auto) (0.0-0.7) 10^3/uL Baso # (Auto) (0.0-0.1) 10^3/uL Absolute Nucleated RBC x10^3/uL Nucleated RBC % /100WBC VBG pH (7.31-7.41) VBG pCO2 (41-51) mmHg VBG pO2 (25-47) mmHg VBG HCO3 (23-28) mmol/L VBG Total CO2 (24-29) mmol/L VBG O2 Saturation (60-80) % VBG Base Excess (-2 - +2) mmol/L Sodium (135-145) mmol/L Potassium 3.3 L (3.5-5.0) mmol/L Chloride (101-111) mmol/L Carbon Dioxide (21-32) mmol/L Anion Gap (6-13) BUN (6-20) mg/dL Creatinine (0.4-1.0) mg/dL Estimated GFR (MDRD) (>89) Glucose (70-100) mg/dL Calcium (8.5-10.3) mg/dL - Diagnostic Imaging Diagnostic Imaging Results: positive: Final report reviewed Assessment/Plan - Problem List (1) Type 1 diabetes mellitus Impression: Has diagnosis of diabetes type 1. Has been using an insulin pump and continuous glucose monitor. She has been seen in hospital several times over the last year for hypoglycemic events. Dr. Kellogg discussed with her that the insulin pump may not be the right device to manage her BG but she prefers it to sub q insulin. Right now her insulin pump is not connected and is out of batteries. Plan: BG will be managed with sub q insulin while in hospital. We will see if she can get her mother to bring the necessary equipment to get her pump up and running, but if this is does not happen prior to discharge the current plan is to use finger sticks and sub q insulin to manage her BG on discharge. Qualifiers: Diabetes mellitus complication status: with hypoglycemia Qualified Code(s): E10.69 - Type 1 diabetes mellitus with other specified complication (2) Altered mental status, unspecified Impression: Resolved: Has been altered since admission, until today. Now awakes and interacts appropriately, she is not sure what happened but endorses that she was feeling hypoglycemic. She denies planned suicide attempt. Plan: Supportive care, possible discharge tomorrow, see diabetes problem for further on hypoglycemia Qualifiers: Altered mental status type: coma Coma depth: [place] coma 9-12 Coma timing: in the field (EMT or ambulance) Qualified Code(s): R40.2421 - [place] coma scale score 9-12, in the field [EMT or ambulance] (3) DKA, type 1 Impression: Resolved BG fluctuating, Anion GAP closed, K+ normal, She has had multiple hospital visits for hypoglycemia. Plan: BG being managed by sub q insulin, it is uncertain how she will be able to manage BG once discharged, the plan for now is to discharge on sub q insulin until she can get her insulin pump up and running again. Qualifiers: Diabetes mellitus complication detail: without coma Qualified Code(s): E10.10 - Type 1 diabetes mellitus with ketoacidosis without coma (4) OCD (obsessive compulsive disorder) Impression: awake today and interactive, no compulsive behavior. Plan: resume home meds Qualifiers: Obsessive-compulsive disorder type: unspecified Qualified Code(s): F42.9 - Obsessive-compulsive disorder, unspecified
[2022-03-31] MEDS: CHOLECALCIFEROL 25 MCG TABLET PO SCH (09:02)
[2022-03-31] MEDS: ENOXAPARIN 40 MG/0.4 ML SYRINGE SUBQ SCH (09:03)
[2022-03-31] MEDS: INSULIN GLARGINE-YFGN 300 UNIT/3 ML PEN SUBQ SCH ×2 (09:03→20:59)
[2022-03-31] MEDS: INSULIN LISPRO 300 UNIT/3 ML PEN SUBQ SCH ×3 (12:14→21:00)
[2022-04-01] MEDS: SODIUM CHLORIDE FLUSH 0.9% 10 ML SYRINGE IVP SCH ×2 (00:26→09:19)
[2022-04-01] MEDS: PANTOPRAZOLE 40 MG TABLET PO SCH (06:24)
[2022-04-01] MEDS ORDERED: INSULIN LISPRO 300 UNIT/3 ML PEN SUBQ ONE (08:00)
--- NOTE | 2022-04-01 08:03 | Discharge Plan ---
Discharge Plan Problem Reviewed?: Yes Disposition: 01 Home, Self Care Diet: Diabetic Activity Restrictions: Activity as Tolerated Shower Restrictions: No Driving Restrictions: No Health Concerns: You presented to our emergency room after your mother found you partially unconscious sitting up in a chair, parts of a protein bar in your mouth. Your glucose was not low. You were brought into the hospital after a couple of days in the emergency room. The delay was due to the fact that we did not have any beds to admit you to. We monitored your glucose, and at no time did you get a severe low glucose. You had mild DKA as you were without your insulin. We got that under control. You do not have a urinary tract infection, you do not have pneumonia. It took a several days to wake up. Once you are awake you said that you just had several hours of low blood glucose. Your pump was because the batteries had failed. And your reservoir for your insulin was very low. Unfortunately your CGM was taken off of you when you came into the hospital and we do not know where it is Plan of Treatment: You feel that you can go home and resume your pump. You are going to get the batteries for the pump and you have insulin at home to fill the reservoir. While you do not have CGM, you will be able to monitor your glucose with fingersticks and you will adjust your pump accordingly. Please see your electrician station assistant so that you can get another prescription for a new CGM. Care Goals: To maintain control of your diabetes. However there have been several instances of being in the emergency room for you where your glucose is too low. Please talk to your electrician station assistant if the pump is the right thing for you. Assessment: Patient is alert, oriented, ambulating in the room without assist, and eating her food without nausea and vomiting. No Smoking: If you smoke, Please STOP! Call for help.
[2022-04-01 08:50] LABS: BASOPHILS % (AUTO) 0.2 %; EOSINOPHILS # (AUTO) 0.1 10^3/uL (0.0-0.7); EOSINOPHILS % (AUTO) 1.7 %; HCT - HEMATOCRIT 37.1 % (37.0-47.0); HGB - HEMOGLOBIN 12.1 g/dL (12.0-16.0); LYMPHOCYTES # (AUTO) 2.8 10^3/uL (1.5-3.5); LYMPHOCYTES % (AUTO) 52.2 %; MEAN CORPUSCULAR HEMOGLOBIN 28.7 pg (27.0-31.0); MEAN CORPUSCULAR HGB CONC 32.6 g/dL (32.0-36.0); MEAN CORPUSCULAR VOLUME 87.9 fL (81.0-99.0); MEAN PLATELET VOLUME 9.7 fL (7.9-10.8); MONOCYTES # (AUTO) 0.6 10^3/uL (0.0-1.0); NEUTROPHILS # (AUTO) 1.9 10^3/uL (1.5-6.6); NEUTROPHILS % (AUTO) 34.7 %; PLT - PLATELET COUNT 251 10^3/uL (130-450); RED BLOOD COUNT 4.22 10^6/uL (4.20-5.40); WHITE BLOOD COUNT 5.3 x10^3/uL (4.8-10.8)
[2022-04-01 08:55] LABS: CALCIUM 8.6 mg/dL (8.5-10.3); CREATININE 0.7 mg/dL (0.4-1.0); POTASSIUM 3.3 mmol/L (3.5-5.0)
[2022-04-01 09:07] LABS: VBG BASE EXCESS 3.7 mmol/L (-2 - +2); VBG HCO3 29.2 mmol/L (23-28); VBG OXYGEN SATURATION 43.3 % (60-80); VBG PCO2 47.6 mmHg (41-51); VBG PH 7.405 (7.31-7.41); VBG PO2 23.6 mmHg (25-47); VBG TOTAL CO2 30.6 mmol/L (24-29)
[2022-04-01] MEDS: INSULIN LISPRO 300 UNIT/3 ML PEN SUBQ SCH (09:17)
[2022-04-01] MEDS: ENOXAPARIN 40 MG/0.4 ML SYRINGE SUBQ SCH (09:18)
[2022-04-01] MEDS: INSULIN GLARGINE-YFGN 300 UNIT/3 ML PEN SUBQ SCH (09:18)
[2022-04-01] MEDS: CHOLECALCIFEROL 25 MCG TABLET PO SCH (09:18)
[2022-04-01 09:59] VITALS: BP 131/82
--- NOTE | 2022-04-02 07:49 | DISCHARGE SUMMARY ---
Discharge Summary Admit Date: 03/28/22 Discharge Date: 04/01/22 Discharging Provider: Delfina Kellogg MD Primary Care Provider: Devorah Gunn MD Code Status: Attempt Resuscitation Discharge Disposition: Home, Self Care - DIAGNOSES Admission Diagnoses: 1. DKA type I 2. Altered mental status 3. Diabetes type 1 uncontrolled with hypoglycemia 4. Obsessive-compulsive disorder 5. Positive COVID status - HPI History of Present Illness: History obtained from chart due to AMS. Alda is a 31 yo female with PMH of type 1 diabetes with insulin pump, mental health issues, depression, PTSD. Found by her mom at her home with AMS Saturday afternoon 03/26/22, 911 called and she was taken to the ED and has been been obtunded largely non verbal state since her arrival. She is being admitted for AMS and DKA, BG 281, Anion GAP 17. She has had multiple ED visits for hypoglycemia. She was most recently in the ED 02/28/22 for mental health issue and possible psychiatric placement. She was discharged with a safety plan, no suicidality a that time. Received a Rx for ativan. On entering the room Alda presents as a sleeping, obese woman who will not open her eyes or engage with me. She withdraws all extremities equally to painful stimuli. Her mother, Gladys, is at bedside and provides all background information. She states Alda has not been ill other then recovering from COVID recently, she has had multiple issues with hypoglycemia. Was on the phone with her Saturday evening and when Alda did not respond Saturday she went to check on her. She reports Alda has been in a bad living situation and this has caused her a lot of stress. 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 Head CT without acute intracranial abnormality. Calvarium and visualized facial bones intact. Visualized sinuses and mastoids clear. Chest x-ray without acute cardiopulmonary process. Blood cultures negative after 5 days - HOSPITAL COURSE Hospital Course: The patient was initially seen in the emergency room March 27. No beds were available and we admitted her on March 28. She presented as metabolic encephalopathy, with a low [place] Coma Scale. Differential diagnosis included accidental drug overdose, hypoglycemia. She slid into DKA while in the ER, and we placed her in the ICU with insulin drip. DKA gradually resolved. Even with treatment of glucose, patient remained asleep. We assume she was asleep and that she would roll over in bed to make her self comfortable. Pull on sheets to make her self comfortable. And would grimace with discomfort when noxious stimuli were presented to her. But she was nonverbal. On the third day she finally woke up, said she was hungry and asked for food. She says that she remembers being hypoglycemic for hours" stumbling around". Her insulin reservoir was near empty in her pump. Her batteries were in her pump. When in ER, her CGM had been removed and we were unable to find it. As such the patient said that when she went home she would just use fingersticks and still continue to use her pump. She now had a new shipment of insulin in her refrigerator, and new batteries for her pump. Her primary care provider was notified that she was in the hospital and had called the hospital asking for an update. That was given. Mom was a constant advocate at the bedside from day 1. She was at the bedside when patient was discharged. Temperature was 37. Heart rate 70. Blood pressure 131/82. Respirations 18. 97% on room air. She is a 5 feet 4 inches female that is 80.5 kg. Speech is normal, oriented to person place and time. I asked her directly if this was an accidental overdose or delivered overdose with some of her medications and she said no. That it was strictly prolonged hy poglycemia even though there was no hypoglycemia at the scene. Neck was supple. Lungs were clear. Regular rate and rhythm. Abdomen benign. Extremities without edema. Greater than 30. Minutes that coordinating discharge - ALLERGIES Allergies/Adverse Reactions: Allergies Allergy/AdvReac Type Severity Reaction Status Date / Time No Known Drug Allergies Allergy Verified 02/27/22 05:26 - MEDICATIONS Home Medications: Ambulatory Orders Medication Instructions Recorded Confirmed Insulin Aspart [NovoLOG] 25 units SQ TITR 12/22/16 03/29/22 Liothyronine [Cytomel] 10 mcg PO DAILY 12/22/16 03/29/22 buPROPion [Wellbutrin Xl] 300 mg PO DAILY 12/22/16 03/29/22 Duloxetine HCl [Cymbalta] 60 mg PO DAILY 09/28/20 03/29/22 lisinopriL [Zestril] 5 mg PO DAILY 02/27/22 03/29/22 Dextroamphetamine/Amphetamine 20 mg PO BID 03/29/22 03/29/22 [Adderall Xr 10 mg Capsule] Cholecalciferol [Vitamin D3] 50 mcg PO DAILY tab 04/01/22 - LABS Result Diagrams: 04/01/22 08:40 04/01/22 08:40
== END 2022-04-01 11:31 | disposition home or self-care (01) | DRG 637 ==
LOC: EDUNIT# → ED 17:52 → ICU 03-28 15:14 → MS2 03-30 14:00
PROVIDERS: ADMIT Specialist; ATTEND Specialist
DX: E10.11 Type 1 diabetes mellitus with ketoacidosis with coma (principal); G93.41 Metabolic encephalopathy; U07.1 COVID-19; Z96.41 Presence of insulin pump (external) (internal); E10.641 Type 1 diabetes mellitus with hypoglycemia with coma; F42.9 Obsessive-compulsive disorder, unspecified; F32.A Depression, unspecified; F43.10 Post-traumatic stress disorder, unspecified; R00.0 Tachycardia, unspecified; E66.9 Obesity, unspecified; Z68.26 Body mass index [BMI] 26.0-26.9, adult; F41.9 Anxiety disorder, unspecified
CPT/HCPCS: 36415; 36600; 51702; 70450; 71045; 80048; 80053; 80306; 80307; 80320; 80329; 81001; 81025; 82009; 82140; 82306; 82330; 82550; 82803; 83036; 83605; 83690; 83735; 84100; 84132; 84439; 84443; 84481; 84484; 85025; 87040; 87150; 87633; 93005; 93306; 96361; 96374; 96375; 96376; 99284; 99285; A9270; J0131; J1650; J1815; J2060; 81003; 82947; 87086

== ENCOUNTER 2022-08-16 19:47 | Outpatient (CLI) | payer MEDICAID | END 2022-08-16 23:59 | disposition critical access hospital (66) | LOC: EMS 19:47 | DX: R10.32 Left lower quadrant pain (principal); M54.50 Low back pain, unspecified; R11.2 Nausea with vomiting, unspecified | CPT/HCPCS: A0425; A0429 ==

== ENCOUNTER 2022-08-16 20:18 | Emergency (ER) | payer MEDICAID ==
[2022-08-16] MEDS ORDERED: SODIUM CHLORIDE 0.9% 1,000 ML IV STA (20:25)
[2022-08-16] MEDS ORDERED: KETOROLAC 15 MG/ML VIAL IVP STA ×2 (20:25→23:46)
[2022-08-16 20:48] LABS: BASOPHILS % (AUTO) 0.3 %; HCT - HEMATOCRIT 44.3 % (37.0-47.0); HGB - HEMOGLOBIN 14.8 g/dL (12.0-16.0); LYMPHOCYTES # (AUTO) 1.6 10^3/uL (1.5-3.5); LYMPHOCYTES % (AUTO) 16.7 %; MEAN CORPUSCULAR HEMOGLOBIN 28.7 pg (27.0-31.0); MEAN CORPUSCULAR HGB CONC 33.4 g/dL (32.0-36.0); MEAN PLATELET VOLUME 9.3 fL (7.9-10.8); MONOCYTES # (AUTO) 0.7 10^3/uL (0.0-1.0); MONOCYTES % (AUTO) 6.7 %; NEUTROPHILS # (AUTO) 7.4 10^3/uL (1.5-6.6); PLT - PLATELET COUNT 348 10^3/uL (130-450); RED BLOOD COUNT 5.15 10^6/uL (4.20-5.40); RED CELL DISTRIBUTION WIDTH 12.9 % (12.0-15.0); WHITE BLOOD COUNT 9.7 x10^3/uL (4.8-10.8)
[2022-08-16 20:54] LABS: VBG HCO3 18.7 mmol/L (23-28); VBG PCO2 28.1 mmHg (41-51); VBG PH 7.44 (7.31-7.41); VBG PO2 49.6 mmHg (25-47)
[2022-08-16 20:55] LABS: VBG BASE EXCESS -3.8 mmol/L (-2 - +2); VBG OXYGEN SATURATION 88.7 % (60-80); VBG TOTAL CO2 19.5 mmol/L (24-29)
[2022-08-16 21:33] LABS: KETONES, SERUM (ACETEST) SMALL (NEGATIVE)
[2022-08-16 21:41] LABS: HCG UR QUAL NEGATIVE
[2022-08-16 21:43] LABS: BILIRUBIN,URINE NEGATIVE (NEGATIVE); GLUCOSE, URINE (UA) NEGATIVE (NEGATIVE); KETONES,URINE (UA) >=80 mg/dL (NEGATIVE); LEUKOCYTE ESTERASE, URINE NEGATIVE (NEGATIVE); NITRITE,URINE NEGATIVE (NEGATIVE); OCCULT BLOOD,URINE LARGE (NEGATIVE); PH,URINE 5.5 PH (5.0-7.5); PROTEIN,URINE NEGATIVE (NEGATIVE); UROBILINOGEN,URINE 0.2 (NORMAL) E.U./dL (NORMAL)
[2022-08-16 21:44] LABS: ALBUMIN 4.2 g/dL (3.2-5.5); ALBUMIN/GLOBULIN RATIO 1.1 (1.0-2.2); ALKALINE PHOSPHATASE 66 IU/L (42-121); ALT ALANINE AMINOTRANSFERASE 17 IU/L (10-60); AST ASPARTATE AMINOTRANSFERASE 26 IU/L (10-42); BILIRUBIN,TOTAL 1.3 mg/dL (0.2-1.0); BUN - BLOOD UREA NITROGEN 16 mg/dL (6-20); CALCIUM 9.1 mg/dL (8.5-10.3); CARBON DIOXIDE - CO2 19 mmol/L (21-32); CHLORIDE 102 mmol/L (101-111); CREATININE 1.3 mg/dL (0.4-1.0); GFR - MDRD 48 (>89); GLUCOSE 94 mg/dL (70-100); LIPASE 20 U/L (22-51); POTASSIUM 3.6 mmol/L (3.5-5.0); SODIUM 137 mmol/L (135-145); TOTAL PROTEIN 7.9 g/dL (6.7-8.2)
[2022-08-16 21:45] LABS: CLARITY,URINE HAZY (CLEAR)
[2022-08-16 21:49] LABS: BACTERIA,URINE Rare /HPF (None Seen); RBC,URINE TNTC /HPF (0-5); SQUAMOUS EPITHELIAL CELL,UR FEW Squamous (<= Few); WBC,URINE 0-3 /HPF (0-5)
--- NOTE | 2022-08-16 23:00 | ED Physician Documentation ---
History of Present Illness - Stated complaint Stated Complaint: L SIDE PX - Chief complaint Chief Complaint: Abd Pain - History obtained from History obtained from: Patient - Additonal information Additional information: 31-year-old woman with type 1 diabetes, depression, high blood pressure, hypothyroidism, presents for vomiting today. 7 out of 10 severity, gradual onset, constant. Patient had 4 mg of IM Zofran and oral dissolving Zofran prior to from [facility]. no past surgical history. 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 : None HEENT: None Psych: Depression, Anxiety Musculoskeletal: None Derm: None - Past Surgical History Past Surgical History: No - Present Medications Home Medications: Ambulatory Orders Medication Instructions Recorded Confirmed Insulin Aspart [NovoLOG] 25 units SQ TITR 12/22/16 03/29/22 Liothyronine [Cytomel] 10 mcg PO DAILY 12/22/16 03/29/22 buPROPion [Wellbutrin Xl] 300 mg PO DAILY 12/22/16 03/29/22 Duloxetine HCl [Cymbalta] 60 mg PO DAILY 09/28/20 03/29/22 lisinopriL [Zestril] 5 mg PO DAILY 02/27/22 03/29/22 Dextroamphetamine/Amphetamine 20 mg PO BID 03/29/22 03/29/22 [Adderall Xr 10 mg Capsule] Cholecalciferol [Vitamin D3] 50 mcg PO DAILY tab 04/01/22 Ketorolac [Toradol] 10 mg PO Q6H PRN #20 tablet 08/16/22 Ondansetron Odt [Zofran Odt] 4 mg TL Q6H PRN #10 tablet 08/16/22 Oxycodone HCl/Acetaminophen 1 each PO Q4H PRN #10 tablet 08/16/22 [Percocet 10-325 mg Tablet] - Allergies Allergies/Adverse Reactions: Allergies Allergy/AdvReac Type Severity Reaction Status Date / Time No Known Drug Allergies Allergy Verified 08/16/22 20:26 - Social History Does the pt smoke?: No Smoking Status: Never smoker Does the pt drink ETOH?: No Does the pt have substance abuse?: No - Immunizations Immunizations are current?: Yes - POLST Patient has POLST: No PD ED PE NORMAL - Vitals Vital signs reviewed: Yes - General General: Alert and oriented X 3, No acute distress, Well developed/nourished - HEENT HEENT: Atraumatic, PERRL, EOMI - Neck Neck: Supple, no meningeal sign - Cardiac Cardiac: RRR - Respiratory Respiratory: No respiratory distress, Clear bilaterally - Abdomen Abdomen: Non tender, Non distended - Derm Derm: Normal color, Warm and dry - Psych Psych: Normal mood, Normal affect Results - Vitals Vitals: Vital Signs - 24 hr 08/16/22 08/16/22 08/16/22 20:22 21:32 22:44 Temperature 36.7 C Heart Rate 71 86 100 Respiratory 19 18 Rate Blood Pressure 110/64 128/61 120/72 O2 Saturation 96 100 99 Oxygen O2 Source Room air - Labs Labs: Laboratory Tests 08/16/22 08/16/22 08/16/22 20:43 20:43 21:18 WBC 9.7 RBC 5.15 Hgb 14.8 Hct 44.3 MCV 86.0 MCH 28.7 MCHC 33.4 RDW 12.9 Plt Count 348 MPV 9.3 Neut # (Auto) 7.4 H Lymph # (Auto) 1.6 [place] # (Auto) 0.7 Eos # (Auto) 0.0 Baso # (Auto) 0.0 Absolute Nucleated RBC 0.00 Nucleated RBC % 0.0 VBG pH 7.440 H VBG pCO2 28.1 L VBG pO2 49.6 H VBG HCO3 18.7 L VBG Total CO2 19.5 L VBG O2 Saturation 88.7 H VBG Base Excess -3.8 L Sodium 137 Potassium 3.6 Chloride 102 Carbon Dioxide 19 L Anion Gap 16.0 H BUN 16 Creatinine 1.3 H Estimated GFR (MDRD) 48 L Glucose 94 Calcium 9.1 Total Bilirubin 1.3 H AST 26 ALT 17 Alkaline Phosphatase 66 Total Protein 7.9 Albumin 4.2 Globulin 3.7 Albumin/Globulin Ratio 1.1 Lipase 20 L Urine Color Urine Clarity Urine pH Ur Specific [place] Urine Protein Urine Glucose (UA) Urine Ketones Urine Occult Blood Urine Nitrite Urine Bilirubin Urine Urobilinogen Ur Leukocyte Esterase Urine RBC Urine WBC Ur Squamous Epith Cells Urine Crystals Urine Bacteria Ur Microscopic Review Urine Culture Comments Urine HCG, Qual Serum Ketones SMALL H 08/16/22 21:18 WBC RBC Hgb Hct MCV MCH MCHC RDW Plt Count MPV Neut # (Auto) Lymph # (Auto) [place] # (Auto) Eos # (Auto) Baso # (Auto) Absolute Nucleated RBC Nucleated RBC % VBG pH VBG pCO2 VBG pO2 VBG HCO3 VBG Total CO2 VBG O2 Saturation VBG Base Excess Sodium Potassium Chloride Carbon Dioxide Anion Gap BUN Creatinine Estimated GFR (MDRD) Glucose Calcium Total Bilirubin AST ALT Alkaline Phosphatase Total Protein Albumin Globulin Albumin/Globulin Ratio Lipase Urine Color YELLOW Urine Clarity HAZY Urine pH 5.5 Ur Specific [place] >=1.030 H Urine Protein NEGATIVE Urine Glucose (UA) NEGATIVE Urine Ketones >=80 H Urine Occult Blood LARGE H Urine Nitrite NEGATIVE Urine Bilirubin NEGATIVE Urine Urobilinogen 0.2 (NORMAL) Ur Leukocyte Esterase NEGATIVE Urine RBC TNTC H Urine WBC 0-3 Ur Squamous Epith Cells FEW Squamous Urine Crystals 3-5 Calcium Oxalate Urine Bacteria Rare Ur Microscopic Review INDICATED Urine Culture Comments NOT INDICATED Urine HCG, Qual NEGATIVE Serum Ketones PD Medical Decision Making - ED course ED course: 31-year-old woman presents from clinic with concern for kidney stones. CT shows mild hydronephrosis and left UPJ 4 mm stone. Normal kidney function. No signs of infection in the urine. Symptomatic care provided with IV Toradol and significantly improved. Prescription sent for Toradol, Zofran, Percocet to pharmacy. Return precautions given. Plan to follow-up with outpatient urology Departure - Departure Disposition: 01 Home, Self Care Clinical Impression: Kidney stones Condition: Stable Instructions: Kidney Stones Follow-Up: Amber Araujo MD [Physician No Access] - Prescriptions: Oxycodone HCl/Acetaminophen [Percocet 10-325 mg Tablet] 1 each PO Q4H PRN #10 tablet PRN Reason: Pain Ketorolac [Toradol] 10 mg PO Q6H PRN #20 tablet PRN Reason: Pain Ondansetron Odt [Zofran Odt] 4 mg TL Q6H PRN #10 tablet PRN Reason: Nausea / Vomiting Comments: You were seen in the emergency department for kidney stones. Please follow-up with outpatient urology. [facility] Return to the emergency department if you have new or worsening symptoms or other concerns
--- NOTE | 2022-08-16 23:25 | CT Report ---
PROCEDURE: ABDOMEN/PELVIS WO INDICATIONS: abd pain, hematuria, calcium oxalate/uric acid TECHNIQUE: A CT scan of the abdomen and pelvis was performed without the use of intravenous contrast. Images we re recorded and evaluated at appropriate window settings. Reformats: coronal and sagittal. For radiat ion dose reduction, the following was used: automated exposure control, adjustment of mA and/or kV ac cording to patient size. COMPARISON: None. FINDINGS: Image quality: Excellent. Lung bases: There is mild dependant atelectasis. Heart: Heart is normal in size. URINARY: Right Kidney and Ureter: There are 3 nonobstructing right renal stones with the largest measuring u p to approximately 0.3 cm. No hydronephrosis. No hydroureter. Left Kidney and Ureter: There is a 0.4 cm obstructing stone within the proximal left ureter at the u reteropelvic junction. There is associated mild left hydronephrosis with mild perinephric stranding. Bladder: Normal wall thickness. No stones. ABDOMEN: Liver: Noncontrast evaluation of the liver demonstrates no discrete mass. Gallbladder: Within normal limits without calcified gallstones. Biliary ducts: No biliary ductal dilatation. Pancreas: Unremarkable. Spleen: Normal in size. Adrenal Glands: No adrenal nodules. Stomach and Bowel: Stomach, small bowel loops, and colon are normal in caliber and wall thickness. T he appendix appears within normal limits. Peritoneum: No abnormal intraperitoneal fluid. No free air. Ventral Wall: No hernia. Abdominal Nodes: No retroperitoneal or mesenteric adenopathy by size criteria. Vessels: Aorta and inferior vena cava are normal in size. PELVIS: Pelvic Organs: Unremarkable. Pelvic Nodes: No enlarged lymph nodes. Miscellaneous: No inguinal hernias identified. Bones: Visualized osseous structures demonstrate no suspicious focal lesions. IMPRESSION: 1. Obstructing urinary stone at the left UPJ with mild left hydronephrosis. Reviewed by: Eduardo Urias MD on 08/16/2022 11:38 PM PDT Approved by: Eduardo Urias MD on 08/16/2022 11:38 PM PDT Station ID: [id number]
[2022-08-16 23:57] VITALS: BP 129/72
== END 2022-08-17 00:05 | disposition home or self-care (01) ==
LOC: EDUNIT# → ED 20:18
DX: N13.2 Hydronephrosis with renal and ureteral calculous obstruction (principal)
CPT/HCPCS: 36415; 80053; 81001; 81002; 81003; 81025; 82009; 82803; 83690; 85025; 87086; 96374; 96376; 99283

== ENCOUNTER 2023-05-24 08:00 | Outpatient (CLI) | payer MEDICAID ==
[2023-05-24 20:17] LABS: NEISSERIA GONORRHOEAE DNA NEGATIVE (NEGATIVE); TRICHOMONAS VAGINALIS DNA NEGATIVE (NEGATIVE)
[2023-05-24 20:18] LABS: CHLAMYDIA TRACHOMATIS DNA POSITIVE (NEGATIVE)
== END 2023-05-24 23:59 | disposition home or self-care (01) ==
LOC: LAB.WC 08:00
PROVIDERS: ATTEND Nurse Practitioner
DX: Z11.3 Encounter for screening for infections with a predominantly sexual mode of transmission (principal)
CPT/HCPCS: 87491; 87591; 87661

== ENCOUNTER 2023-07-26 08:00 | Outpatient (CLI) | payer MEDICAID, OTHER ==
[2023-07-26 20:53] LABS: CHLAMYDIA TRACHOMATIS DNA NEGATIVE (NEGATIVE); NEISSERIA GONORRHOEAE DNA NEGATIVE (NEGATIVE)
[2023-07-26 23:01] LABS: BACTERIAL VAGINOSIS DNA NEGATIVE (NEGATIVE); CANDIDA GLABRATA DNA NEGATIVE (NEGATIVE); CANDIDA GROUP DNA NEGATIVE (NEGATIVE); CANDIDA KRUSEI DNA NEGATIVE (NEGATIVE); TRICHOMONAS VAGINALIS DNA NEGATIVE (NEGATIVE)
== END 2023-07-26 23:59 | disposition home or self-care (01) ==
LOC: LAB.N 08:00
PROVIDERS: ATTEND Nurse Practitioner
DX: Z11.3 Encounter for screening for infections with a predominantly sexual mode of transmission (principal)
CPT/HCPCS: 81514; 87491; 87591; 87661

== ENCOUNTER 2023-09-05 01:56 | Emergency (ER) | payer MEDICAID, OTHER ==
--- NOTE | 2023-09-05 02:46 | ED Physician Documentation ---
History of Present Illness - Stated complaint Stated Complaint: UNABLE TO SLEEP - Chief complaint Chief Complaint: General - History obtained from History obtained from: Patient - Additonal information Additional information: HPI from patient. Patient c/o insomnia x 2 nights; has not had more than a few hours (cumulative) of fractured sleep over past 2-3 days. No apparent inciting event nor contribu tory factors. Denies feeling unusual depressed mood or anxiety. Has DM and continuos glucose monitor and has not had low nor particularly high readings recently (she says her blood sugars have been running 100s-200s). Has had some difficulty with sleep in the past but not as persistent as she is having now. Denies regular/heavy alcohol intake and has not had any alcohol recently PD PAST MEDICAL HISTORY - Past Medical History Past Medical History: Yes Cardiovascular: None Respiratory: None Neuro: Headaches Endocrine/Autoimmune: Type 1 diabetes GI: None [employer]: None : None HEENT: None Psych: Depression, Anxiety Musculoskeletal: None Derm: None - Past Surgical History Past Surgical History: No - Present Medications Home Medications: Ambulatory Orders Medication Instructions Recorded Confirmed Insulin Aspart [NovoLOG] 25 units SQ TITR 12/22/16 03/29/22 Liothyronine [Cytomel] 10 mcg PO DAILY 12/22/16 03/29/22 buPROPion [Wellbutrin Xl] 300 mg PO DAILY 12/22/16 03/29/22 Duloxetine HCl [Cymbalta] 60 mg PO DAILY 09/28/20 03/29/22 lisinopriL [Zestril] 5 mg PO DAILY 02/27/22 03/29/22 Dextroamphetamine/Amphetamine 20 mg PO BID 03/29/22 03/29/22 [Adderall Xr 10 mg Capsule] Cholecalciferol [Vitamin D3] 50 mcg PO DAILY tab 04/01/22 Ketorolac [Toradol] 10 mg PO Q6H PRN #20 tablet 08/16/22 Ondansetron Odt [Zofran Odt] 4 mg TL Q6H PRN #10 tablet 08/16/22 Oxycodone HCl/Acetaminophen 1 each PO Q4H PRN #10 tablet 08/16/22 [Percocet 10-325 mg Tablet] LORazepam [Ativan] 0.5 - 1 mg PO HS PRN #14 tablet 09/05/23 hydrOXYzine HCL [Hydroxyzine HCl] 25 mg PO HS PRN #20 tablet 09/05/23 - Allergies Allergies/Adverse Reactions: Allergies Allergy/AdvReac Type Severity Reaction Status Date / Time No Known Drug Allergies Allergy Verified 09/05/23 02:11 - Social History Does the pt smoke?: No Smoking Status: Never smoker Does the pt drink ETOH?: No Does the pt have substance abuse?: No - Immunizations Immunizations are current?: Yes - POLST Patient has POLST: No PD ED PE NORMAL - Vitals Vital signs reviewed: Yes - General General: Alert and oriented X 3, No acute distress, Well developed/nourished - Cardiac Cardiac: RRR, No murmur - Respiratory Respiratory: No respiratory distress, Clear bilaterally - Neuro Neuro: Alert and oriented X 3 Eye Opening: Spontaneous Motor: Obeys Commands Verbal: Oriented GCS Score: 15 - Psych Psych: Normal mood, Normal affect Results - Vitals Vitals: Vital Signs - 24 hr 09/05/23 09/05/23 02:08 03:39 Temperature 36.6 C Heart Rate 90 80 Respiratory 16 16 Rate Blood Pressure 139/76 H 125/78 O2 Saturation 99 97 Oxygen O2 Source Room air PD Medical Decision Making - ED course Complexity details: considered differential, d/w patient ED course: Uncomplicated insomnia (no elements of HPI/ROS to suggest concerning/specific cause nor concerning result of the insomnia such as delirium, hallucinations, AMS). Given 2 mg PO lorazepam (she is being driven home) and e-prescribed short courses of (PRN) lorazepam and hydroxyzine. I instructed her to use the hydroxyzine INSTEAD of the lorazepam if she is not having adequate results with the lorazepam; I specifically instructed her to not take both the lorazepam and hydroxyzine within 24 hours of each other (so as to prevent oversedation). I explained that these medications are strictly meant to be a short-term bridge for her insomnia until she can follow up with PCP (should the insomnia persist or recur). Departure - Departure Disposition: 01 Home, Self Care Clinical Impression: Insomnia Condition: Good Instructions: ED Insomnia Prescriptions: LORazepam [Ativan] 0.5 - 1 mg PO HS PRN #14 tablet PRN Reason: Insomnia hydrOXYzine HCL [Hydroxyzine HCl] 25 mg PO HS PRN #20 tablet PRN Reason: Insomnia Comments: I have electronically submitted prescriptions for lorazepam and hydroxyzine to [facility] in [place]. Both of these medications cause drowsiness. I am prescribing them for you as a short-term treatment for your insomnia. You can use one OR the other medication as needed at night for insomnia; do not use both medications on the same evening as this may cause over-sedation. Follow-up with your primary care provider, next available appointment, for reevaluation. If your insomnia is persistent or recurrent, you might benefit from referal to a specialist (sleep medicine). Discharge Date/Time: 09/05/23 03:39
[2023-09-05] MEDS: LORazepam 0.5 MG TABLET PO STA (03:34)
[2023-09-05 03:47] VITALS: BP 125/78; O2SAT 97
== END 2023-09-05 03:39 | disposition home or self-care (01) ==
LOC: ED 01:56
DX: G47.00 Insomnia, unspecified (principal)
CPT/HCPCS: 99283; A9270